=== PATIENT | male | born 1935 | race Caucasian/White ===

== ENCOUNTER → 2018-02-06 18:59 | Outpatient (CLI) | payer OTHER | END | disposition home or self-care (01) | LOC: D.SLEEP 11-28 20:00 | DX: G47.8 Other sleep disorders (principal) ==

== ENCOUNTER 2019-11-19 08:30 | Inpatient (IN) | payer OTHER ==
[~2019-11-19] VITALS: Ht 172.7 cm; Wt 67.5 kg
[~2019-11-19 08:30] MED LIST: ACETAMINOPHEN325 MG PO; ALBUTEROL SULF8.5 GM INH; ALOPHEN PILLS5 MG PO; AMBIEN10 MG; BAYER CHEWABLE81 MG PO; COREG6.25 MG; CRESTOR20 MG PO; GUAIFENESI100 MG/5 M PO; GYNE-LOTRIMIN-745 GM VG; KLOR-CON M2020 MEQ PO; LASIX20 MG PO; PLAVIX75 MG PO; RANITIDINE HCL150 M1 PO; REMERON15 MG PO; SPIRIVA RESPIMAT4 GM INH; STOOL SOFTENER240 MG; SYMBICORT 16010.2 GM INH; TESSALON PERLE100 MG PO; VITAMIN B-121000 MCG PO; ZYLOPRIM100 MG PO
[2019-11-19 09:35] LABS: BASOPHILS 0.3 % (0-2); EOSINOPHILS 4.4 % (0-7); HEMATOCRIT 41.3 % (42.0-54.0); HEMOGLOBIN 13.4 g/dL (13.5-17.5); IMMATURE GRANULOCYTES 0.3 % (0-5); LYMPHOCYTES 25.6 % (15-50); MCHC 32.4 g/dL (31.0-37.0); MCV 92.4 fL (80.0-100.0); MONOCYTES 9.5 % (2-11); NEUTROPHILS 59.9 % (40-80); PLATELET COUNT 191 10x3/uL (130-400); RBC 4.47 10x6/uL (4.20-6.10); RDW 15.7 % (11.5-14.5)
[2019-11-19 09:46] LABS: BILIRUBIN NEGATIVE (NEGATIVE); GLUCOSE NEGATIVE (NEGATIVE); KETONE NEGATIVE (NEGATIVE); NITRITE NEGATIVE (NEGATIVE); SPECIFIC GRAVITY 1.005 (1.005-1.020); UROBILINOGEN NORMAL (NORMAL)
[2019-11-19 09:53] LABS: APTT 30.2 SECONDS (22.8-39.4); INR 0.95 (0.85-1.17); PROTIME 12.7 SECONDS (11.6-15.0)
[2019-11-19] MEDS ORDERED: ICYHOT (10:03)
[2019-11-19] MEDS ORDERED: FOLATE0.4 MG PO (10:08)
[2019-11-19] MEDS ORDERED: NITROSTAT0.4 MG SL (10:09)
[2019-11-19 10:10] LABS: ALBUMIN 3.2 g/dL (3.4-5.0); BILIRUBIN - TOTAL 0.35 mg/dL (0.2-1.3); CALCIUM 9.4 mg/dL (8.5-10.1); CARBON DIOXIDE 31.7 mmol/L (21.0-32.0); CREATININE - SERUM 1.1 mg/dL (0.6-1.3); PHOSPHOROUS 3.2 mg/dL (2.5-4.9); POTASSIUM - SERUM 3.7 mmol/L (3.5-5.1); PROTEIN - SERUM 7.6 g/dL (6.4-8.2); T4 THYROXIN - FREE 0.91 ng/dL (0.76-1.46); THYROID STIMULATING HORMONE 3.84 uIU/mL (0.36-3.74); URIC ACID 4.5 mg/dL (2.6-7.2)
[2019-11-19] MEDS ORDERED: FLUTICASONE PRO16 GM NASAL (10:21)
[2019-11-19] MEDS ORDERED: PLAVIX75 MG (10:24)
[2019-11-20] VITALS (42 sets, daily range): BP systolic 81–150; BP diastolic 23–94; BMI 21.8; BMI 21.7
[2019-11-20 12:27] LABS: INR 1.58 (0.85-1.17); PROTIME 18.7 SECONDS (11.6-15.0)
--- NOTE | 2019-11-20 14:00 | NUR ---
PT ARRIVED TO UNIT AROUND 1348 VIA BED FROM OR. PLACED ON VENT AC R-14, TV 550, FIO2 100% PEEP 5. CONNECTED TO PROFESSIONAL FIGHTER. SWAN TO [facility] AT APPROX 53CM, SECURED. ARRIVED ON EPINEPHRINE, AMIODARONE, DOBUTAMINE AND PLASMOLYTE. SEE IV FLOWSHEET FOR RATES. HAS MIDSTERNAL INCISION WITH DRESSING C/D/I. SUBTERNAL CT X 2 TO 20CM SUCTION, NO AIR LEAK NOTED. LEFT CELE DRAIN IN PLACE. BALLOON PUMP TO LEFT GROIN 1:1. RLE HARVEST SITE WRAPPED WITH COBAN DRESSING. KIKI DRAIN IN PLACE WITH BLOODY DRAINAGE NOTED. UREÑA CATHETER IN PLACE WITH CLEAR YELLOW URINE NOTED. RIGHT RADIAL LINE SECURED IN PLACE WITH WRIST PROTECTOR. WRIST RESTRAINTS APPLIED ON ARRIVAL PER ORDER. SAFETY MEASURES IN PLACE. WILL CONTINUE TO MONITOR CLOSELY. TITRATE TONYA AND NITRO TO MAINTAIN BALLOON PUMP MEAN BETWEEN 60-[address] JOHN.
--- NOTE | 2019-11-20 14:54 | NUR ---
1 UNIT OF [facility]FP INFUSING AT THIS TIME.
[2019-11-20 14:56] LABS: BASOPHILS 0.1 % (0-2); EOSINOPHILS 0.7 % (0-7); IMMATURE GRANULOCYTES 0.4 % (0-5); LYMPHOCYTES 12.6 % (15-50); MCH 30.4 pg (26.0-34.0); MCHC 32.1 g/dL (31.0-37.0); MEAN PLATELET VOLUME 10.1 fL (7.4-10.4); MONOCYTES 9.1 % (2-11); NEUTROPHILS 77.1 % (40-80); RDW 15.6 % (11.5-14.5); WBC 12.3 10x3/uL (4.8-10.8)
--- NOTE | 2019-11-20 15:00 | NUR ---
PULLED ETTUBE BACK 2CM, FROM 23 CM TO 21 CM @ LIP. PER DR. JOHN.
[2019-11-20 15:01] LABS: HEMATOCRIT 31.2 % (42.0-54.0); MCV 94.8 fL (80.0-100.0); PLATELET COUNT 112 10x3/uL (130-400); RBC 3.29 10x6/uL (4.20-6.10)
[2019-11-20 15:03] LABS: INR 1.35 (0.85-1.17); PROTIME 16.5 SECONDS (11.6-15.0)
[2019-11-20 15:15] LABS: CALC OSMOLALITY 290 mosm/kg (275-300); CALCIUM 7.2 mg/dL (8.5-10.1); CARBON DIOXIDE 23.8 mmol/L (21.0-32.0); CHLORIDE - SERUM 109 mmol/L (98-107); CREATININE - SERUM 0.9 mg/dL (0.6-1.3); SODIUM 143 mmol/L (136-145); UREA NITROGEN 14 mg/dL (7-18); eGFR NON AFRICAN AMERICAN 85 mL/min (90-120)
[2019-11-20 15:18] LABS: GLUCOSE 197 mg/dL (74-106)
--- NOTE | 2019-11-20 15:36 | NUR ---
BLOOD GLUCOSE 221. INSULIN DRIP INITIATED PER PROTOCOL.
--- NOTE | 2019-11-20 19:04 | NUR ---
REPORT RECEIVED, SHIFT ASSESSMENT COMPLETED PER FLOW SHEET, SEE FOR DETAILS. ALL LINES LEVELED AND ZEROED WITH GOOD WAVEFORM. WILL CONTINUE TO MONITOR.
--- NOTE | 2019-11-20 21:24 | NUR ---
SPOKE TO DR. JOHN, UPDATE GIVEN ON PATIENT'S STATUS, NEW ORDERS RECEIVED TO INCREASE PLASMOLYTE TO 250 ML/HR FOR ONE HOUR, DECREASE DOBUTAMINE TO 8 MCG/KG/MIN, AND NEW ORDERS FOR DEMEROL-SEE ORDERS FOR DETAILS. DR. JOHN OK WITH IABP MEAN PRESSURE IN THE 80'S AND ORDERS TO TITRATE DRIPS ACCORDING TO HENRY BP.
--- NOTE | 2019-11-20 23:00 | NUR ---
REASSESSMENT COMPLETED PER FLOW SHEET, SEE FOR DETAILS. ORAL CARE PROVIDED.
[2019-11-21] VITALS (115 sets, daily range): BP systolic 88–148; BP diastolic 24–60; Ht 172.7 cm; Wt 67.5 kg
--- NOTE | 2019-11-21 00:15 | NUR ---
SVO2 DECREASE NOTED. CI CO DROP. GRAPH GAP ON MONITOR. SVO2 RECALIBER REQUIRED. VIGILANCE MONITOR RECALIBRATED.
--- NOTE | 2019-11-21 01:09 | NUR ---
TEMPERATURE 38.9, PRN TYLENOL ADMINISTERED PER ORDERS.
--- NOTE | 2019-11-21 03:00 | NUR ---
REASSESSMENT COMPLETED PER FLOW SHEET, SEE FOR DETAILS. NO ACUTE DISTRESS NOTED. WILL CONTINUE TO MONITOR.
[2019-11-21 04:14] LABS: MAGNESIUM - SERUM 1.8 mg/dL (1.8-2.4); POTASSIUM - SERUM 3.6 mmol/L (3.5-5.1)
--- NOTE | 2019-11-21 04:15 | NUR ---
PVC'S NOTED ON MONITOR, POTASSIUM 3.4 ON EKG, BLOOD DRAW RESULTS NOT BACK. POTASSIUM TREATED PER PROTOCOL.
--- NOTE | 2019-11-21 05:33 | NUR ---
SON AT BEDSIDE, UPDATE GIVEN, QUESTIONS ANSWERED. PATIENT SEDATED ON VENTILATOR, NO ACUTE DISTRESS NOTED. WILL CONTINUE TO MONITOR.
[2019-11-21 06:20] LABS: HEMATOCRIT 26.6 % (42.0-54.0); HEMOGLOBIN 8.6 g/dL (13.5-17.5); MCH 30.2 pg (26.0-34.0); MCHC 32.3 g/dL (31.0-37.0); MCV 93.3 fL (80.0-100.0); MEAN PLATELET VOLUME 10.3 fL (7.4-10.4); PLATELET COUNT 92 10x3/uL (130-400); RBC 2.85 10x6/uL (4.20-6.10); RDW 15.7 % (11.5-14.5); WBC 9.7 10x3/uL (4.8-10.8)
[2019-11-21 06:45] LABS: ALKALINE PHOSPHATASE 85 U/L (30-120); BILIRUBIN - TOTAL 0.46 mg/dL (0.2-1.3); CALCIUM 8.1 mg/dL (8.5-10.1); CARBON DIOXIDE 24.7 mmol/L (21.0-32.0); CHLORIDE - SERUM 110 mmol/L (98-107); CREATININE - SERUM 0.9 mg/dL (0.6-1.3); POTASSIUM - SERUM 3.8 mmol/L (3.5-5.1); SODIUM 141 mmol/L (136-145); UREA NITROGEN 11 mg/dL (7-18); eGFR NON AFRICAN AMERICAN 85 mL/min (90-120)
[2019-11-21 07:14] LABS: ALBUMIN 2.1 g/dL (3.4-5.0); ALT (SGPT) 43 U/L (10-68); CALC OSMOLALITY 281 mosm/kg (275-300); GLUCOSE 136 mg/dL (74-106); PROTEIN - SERUM 4.5 g/dL (6.4-8.2)
[2019-11-21 07:17] LABS: PLATELET ESTIMATE DECREASED
--- NOTE | 2019-11-21 08:21 | NUR ---
URINE OUTPUT FOR LAST HOUR 20CC. DR. JOHN NOTIFIED.
--- NOTE | 2019-11-21 08:35 | NUR ---
POTASSIUM 3.5. 10MEQ GIVEN PER PROTOCOL.
--- NOTE | 2019-11-21 09:15 | NUR ---
CPV AND ART LINE TUBING CHANGED AT THIS TIME.
--- NOTE | 2019-11-21 09:30 | NUR ---
DR. JOHN AT BEDSIDE. IABP CHANGED TO 1:2. ORDERED 250ML BOLUS AT THIS TIME TO BE GIVEN IN 1HR.
--- NOTE | 2019-11-21 11:00 | NUR ---
RE-ASSESSMENT COMPLETED. IABP 1:2. PT OPENS EYES TO VOICE. FOLLOWS SIMPLE COMMANDS. CHEST TUBES CONTINUE ON 20CM SUCTION. NO AIR LEAK NOTED. URINE OUT PUT HAS BEEN LOW. DR. JOHN AWARE. WILL CONTINUE TO MONITOR CLOSELY.
--- NOTE | 2019-11-21 12:03 | NUR ---
SUBSTERNAL DRESSING CHANGED PER ORDER. BIO PATCH APPLIED TO TPM WIRE. CHLOROPREP USED TO CLEAN CHEST TUBE SITES. 4X4'S APPLIED TO SITE, SECURED WITH TAGEDERM DRESSING.
--- NOTE | 2019-11-21 13:04 | NUR ---
URINE OUT PUT FOR THIS HR WAS 20CC. DR. JOHN NOTIFIED. NO NEW ORDERS RECEIVED AT THIS TIME.
--- NOTE | 2019-11-21 14:00 | NUR ---
RIJ CORTIS DRESSING CHANGED AT THIS TIME. PT TOLERATED WELL. WILL CONTINUE TO MONITOR.
--- NOTE | 2019-11-21 14:07 | OP ---
PATIENT NAME: LENY TORRES MEDICAL RECORD: [id number] :35 LOCATION:D.CVI [id number] ADMISSION DATE:11/20/19 SURGEON: DEVONTE JOHN MD DATE OF OPERATION: 11/20/2019 SURGEON: Devonte John MD PROCEDURES PERFORMED: 1. Beating heart, cardiopulmonary bypass assist coronary bypass graft times 2 (left internal mammary to LAD, reverse saphenous vein graft from aorta to second diagonal). 2. Endoscopic vein harvest. 3. Insertion of intraaortic balloon pump via left common femoral artery, percutaneous technique. 4. Ultrasound-guided left common femoral access. OPERATIVE INDICATION: Ischemic cardiomyopathy and coronary artery disease. POSTOPERATIVE DIAGNOSES: ischemic cardiomyopathy and coronary artery disease. ANESTHESIA: General endotracheal anesthesia. ESTIMATED BLOOD LOSS: Total cardiopulmonary bypass with Cell Saver retransfusion, one platelets. COMPLICATIONS: None. CONDITION: Critical. DISPOSITION: CV ICU. SPECIMENS: Mediastinal lymph node. OPERATIVE FINDINGS: 1. Transesophageal echocardiography revealed minimal mitral regurgitation and inferior dyskinesis, EF 25%. 2. Good quality greater saphenous vein endoscopically, right lower extremity. The patient later developed hematoma of the right groin and required open incision and evacuation. 3. Inability to percutaneously cannulate the right femoral artery. 4. Good quality left internal mammary artery. There were calcified left lower lobe lesions. Some adhesions to the left lower lobe that were taken down with electrocautery. 5. Soft anthracotic appearing mediastinal lymph node for permanent specimen. 6. Hostile ascending aorta calcified except for a small anterior portion just to the proximal arch, which was used for the cannulation. 7. No sizable posterior descending artery and posterolateral right coronary artery for bypass and the obtuse marginal as expected had severe disease and was not bypassable. 8. LAD 2.0 mm. 9. Second diagonal 1.5 mm proximal anastomosis with a heartstring in the softest area in the anterior ascending aorta, but had some soft plaque in this region. 10. Ultrasound-guided access to the left common femoral artery and placement of a sheathless left intraaortic balloon pump. OPERATIVE REPORT [id number] LENY TORRES INDICATION: Coronary artery disease and ischemic cardiomyopathy. PROCEDURE IN DETAIL: The patient was brought to the operating suite. General anesthesia was obtained. The patient was prepped and draped. Endoscopic vein harvest, right lower extremity was performed. Side branch divided with electrocautery. The vessel ligated proximally and distally removed. Side branches were tied and leakage sites were oversewn. Later, the leg was closed in 2 layers. Hematoma that developed in the upper thigh was evacuated with an incision and a drain was placed. Percutaneous attempt at placement of a right femoral arterial catheter were unsuccessful, ACT 180 at this time. Mediastinotomy incision was made, subcutaneous tissue divided with electrocautery. Sternum was divided with a saw. Left hemisternum was elevated. Left pleural cavity was entered. Left internal mammary was taken down as a pedicle graft. Palpable calcified nodules lower lobe were noted with some adhesions, this was taken down with electrocautery. Heparin was given. The internal mammary was clipped and made ready for anastomosis. The pericardium was opened. 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 The aorta was circumferentially calcified with eggshell type calcium at the base of the innominate artery, there was a ring of calcium but in the very proximal arch a soft area amenable for cannulation. The ACT was appropriately elevated and the ascending aorta was cannulated. Dual stage venous cannula was inserted. The patient was placed on cardiopulmonary bypass. The patient had hypotension prior to this on trying to expose the inferior wall to see the vessels as he had a large fatty heart. The patient was stable on cardiopulmonary bypass and sites for distal anastomoses were selected. Distal anastomosis was performed with inflow occlusion. Elevation of the heart using the off pump retraction system and stabilization of the distal target in a standard technique for the vein graft as well as the internal mammary proximal anastomosis with a heartstring device. Flow restored with the patient in Trendelenburg position. A single suture was placed distally in the internal mammary. The patient was weaned from cardiopulmonary bypass, and was stable. The patient was decannulated. Aortic annulus was oversewn with a pledgeted Prolene suture. Protamine was given. Thorough irrigation performed, hemostasis was ensured. The graft lay appropriately. Drain was placed in the mediastinum both pleural cavities. Ventricular pacing wire was placed. The pericardial fat was approximated over the great vessels. Left chest was evacuated and irrigated. The internal mammary harvest site was inspected for bleeding. Sternum was closed with wires. Layer of the fascia was closed. Subcutaneous tissue closed. Skin was closed. A hematoma of the right groin was noted. Incision was made to drain it. No obvious bleeding from the femoral vessels at the site. No further oozing after the vessel was packed off. The left femoral artery was visualized with ultrasound and cannulated with micropuncture technique and using a wire and sheathless technique, the intraaortic balloon pump was placed and sutured in place. The patient critical to ICU. TRANSINT:[id number] Voice Confirmation ID: [id number] DOCUMENT ID: [id number] OPERATIVE REPORT [id number] LENY TORRES, DEVONTE Bianchi MD at 1407 CC: KATYA DRAKE M.D. and KYREE ARAUJO [id number] DICTATION DATE: 11/20/19 1502 MAT SEWER: 11/21/19 0116 ADM IN [facility] [address] [place] [address]
--- NOTE | 2019-11-21 15:00 | NUR ---
UREÑA CATHETER TEMPERATURE 38.4. ROOM TEMPERATURE DECREASED, BLAKET REMOVED. TYLENOL SUPP GIVEN PER ORDERS. WILL CONTINUE TO MONITOR CLOSELY.
--- NOTE | 2019-11-21 15:00 | NUR ---
POTASSIUM OF 3.5 TREATED PER PROTOCOL.
--- NOTE | 2019-11-21 15:27 | NUR ---
DR. JOHN AT BEDSIDE. DECREASED DOBUTAMINE TO 6MCG/KG/MIN PER DR. JOHN. WANTS DOBUTAMINE DOWN TO 5MCG/KG/MIN BY END OF SHIFT.
--- NOTE | 2019-11-21 15:43 | NUR ---
CONTINUE AMIODARONE DRIP AT 0.5MG/MIN PER DR. JOHN.
[2019-11-21 16:26] LABS: MAGNESIUM - SERUM 1.8 mg/dL (1.8-2.4); POTASSIUM - SERUM 3.6 mmol/L (3.5-5.1)
--- NOTE | 2019-11-21 16:43 | NUR ---
MAG 1.8 AND K+ 3.6. DR. JOHN NOTIFIED. ORDERED 1GM MAGNESIUM. NO POTASSIUM TO BE GIVEN AT THIS TIME PER DR. JOHN.
--- NOTE | 2019-11-21 19:00 | NUR ---
BEDSIDE REPORT AND SHIFT ASSESSMENT COMPLETE, SEE FLOWSHEET. PT SEDATED, OPENS EYES. MIDSTERNAL INCISION DRESSING CDI. SUBSTERNAL INCISION, CT X 2, L CELE DRAIN, DRESSING CDI. L GROIN IABP SITE, DRESSING CDI. RLE HARVEST SITE, DRESSINGS INTACT. UREÑA WITH CLEAR, YELLOW UOP. ALL LINES ZERO'D, GOOD WAVEFORM. WILL CPOC.
--- NOTE | 2019-11-21 19:23 | NUR ---
GTT'S TITRATED PER NOV.
--- NOTE | 2019-11-21 23:55 | NUR ---
PVC'S NOTED ON MONITOR, STAT MAG AND POTASSIUM DRAWN AND SENT TO LAB.
[2019-11-22] VITALS (116 sets, daily range): BP systolic 96–160; BP diastolic 32–80
[2019-11-22 00:12] LABS: POTASSIUM - SERUM 3.8 mmol/L (3.5-5.1)
--- NOTE | 2019-11-22 00:30 | NUR ---
K+ 3.8, 5 MEQ POTASSIUM GIVEN PER PROTOCOL.
--- NOTE | 2019-11-22 03:00 | NUR ---
REASSESSMENT COMPLETE, SEE FLOWSHEET.
--- NOTE | 2019-11-22 04:00 | NUR ---
ORAL CARE COMPLETE.
--- NOTE | 2019-11-22 05:39 | NUR ---
REPORT RECEIVED. PT REMAINS ON VENT A/C, RATE 14, TV 550, FIO2 40%, PEEP 5. IABP TO LEFT GROIN REMAINS IN PLACE, DRESSING INTACT. SWAN MARTELL TO RIJ IN PLACE, DRESSING CDI. SEE IV FLOWSHEET FOR IV DRIPS. RIGHT RADIAL HENRY SECURED WITH WRIST PROTECTOR. BRANDY WRIST RESTRAINTS IN PLACE PER ORDER. CT X 2 TO 20CM SUCTION, NO AIR LEAK NOTED. CELE DRAIN IN PLACE. RLE HARVEST SITES DRESSING C/D/I, KIKI DRAIN IN PLACE. PEDAL PULSES AUDIBLE WITH DOPPLER. LEFT RADIAL PULSE 3+. TPM WIRE SECURED. UREÑA CATHETER INPLACE WITH CLEAR YELLOW URINE NOTED. SAFETY MEASURES IN PLACE. WILL CONTINUE TO MONITOR CLOSELY.
[2019-11-22 05:58] LABS: HEMATOCRIT 24.6 % (42.0-54.0); HEMOGLOBIN 7.8 g/dL (13.5-17.5); MCH 29.5 pg (26.0-34.0); MCHC 31.7 g/dL (31.0-37.0); MCV 93.2 fL (80.0-100.0); MEAN PLATELET VOLUME 11.3 fL (7.4-10.4); RBC 2.64 10x6/uL (4.20-6.10); WBC 9.4 10x3/uL (4.8-10.8)
[2019-11-22 06:03] LABS: PLATELET COUNT 67 10x3/uL (130-400)
--- NOTE | 2019-11-22 06:25 | NUR ---
H&H 7.8 AND 24.6, PLATELETS 67. DR. JOHN NOTIFIED.
[2019-11-22 06:47] LABS: PLATELET ESTIMATE DECREASED
--- NOTE | 2019-11-22 07:30 | NUR ---
IABP DC'D AT THIS TIME. EPINEPHRINE TURNED OFF PER DR. JOHN. PLASMOLYTE RATE CHANGED TO 20CC/HR PER DR. JOHN. WILL CONTINUE TO MONITOR.
[2019-11-22 08:09] LABS: ALBUMIN 1.8 g/dL (3.4-5.0); ALKALINE PHOSPHATASE 90 U/L (30-120); BILIRUBIN - TOTAL 0.36 mg/dL (0.2-1.3); CALC OSMOLALITY 274 mosm/kg (275-300); CALCIUM 7.2 mg/dL (8.5-10.1); CARBON DIOXIDE 26.8 mmol/L (21.0-32.0); CHLORIDE - SERUM 106 mmol/L (98-107); CREATININE - SERUM 0.9 mg/dL (0.6-1.3); GLUCOSE 128 mg/dL (74-106); POTASSIUM - SERUM 3.7 mmol/L (3.5-5.1); PROTEIN - SERUM 4.2 g/dL (6.4-8.2); SODIUM 137 mmol/L (136-145); UREA NITROGEN 9 mg/dL (7-18); eGFR NON AFRICAN AMERICAN 85 mL/min (90-120)
[2019-11-22 08:10] LABS: ALT (SGPT) 30 U/L (10-68)
--- NOTE | 2019-11-22 10:10 | NUR ---
PT EXTUBATED AT 0955. CURRENTLY ON VENTY MASK AT 50%. VERY WEAK COUGH. HOB AT 45 DEGREES. WILL CONTINUE TO MONITOR CLOSELY.
--- NOTE | 2019-11-22 10:46 | NUR ---
KHALIF MOURA DC'Arturo PER ORDER. PT TOLERATED WELL. WILL CONTINUE TO MONITOR.
--- NOTE | 2019-11-22 12:15 | NUR ---
DR. JOHN NOTIFIED OF ABG RESULTS. ORDERS RECEIVED. FAMILY AT BEDSIDE. WILL CONTINUE TO MONITOR.
--- NOTE | 2019-11-22 13:36 | NUR ---
UNIT OF BLOOD INITIATED AT THIS TIME. AMIODARONE BOLUS GIVEN. AMIODARONE DRIP INCREASED TO 1MG/MIN AT 1319. NEEDS TO BE CHANGED BACK TO 0.5MG/MIN IN 6HRS.
--- NOTE | 2019-11-22 15:00 | NUR ---
UNIT OF PRBC'S FINISHED INFUSING.
--- NOTE | 2019-11-22 15:01 | NUR ---
PLACED BACK ON VENTI MASK. RESPIRATORY NOTIFIED.
--- NOTE | 2019-11-22 15:39 | NUR ---
OFF BIPAP AT THIS TIME PER DR. JOHN. PLACED ON 12L VENTI MASK.
--- NOTE | 2019-11-22 16:48 | TEE ---
PATIENT:LENY TORRES MEDICAL RECORD: [id number] LOCATION:[place] [address] AGE OF PATIENT: 84 ADMISSION DATE: 11/20/19 SEX: M REFERRING PHYSICIAN: INTERPRETING PHYSICIAN: GONZALO DAVIDSON MD TRANSESOPHAGEAL ECHOCARDIOGRAM Date: 11/20/19 RONNY CHARGE Y INDICATIONS: CABG PREMEDICATIONS: PATIENT'S RESPONSE PROCEDURE DOPPLER MEASUREMENTS: LVIT LA PA RA LVOT RVOT Asc. Ao AV Gradient Peak AV Mean AV Area MV Gradient Peak MV Mean MV Area INTERPRETATION: LVd: 4.6 CM LVs: 3.3 CM LA: 3.3 CM Doppler: 2-D: COLOR FLOW DOPPLER NORMAL SALINE STUDY: MISCELLANOUS: DIAGNOSIS: PLAN: Nuclear Test Technician:Iwona Mi Assistant Credit Manager: Luca GUERRERO COMMENTS: DATE OF SERVICE: 11/21/2019 PROCEDURE: Transesophageal echo evaluation of valvular structures during bypass surgery. FINDINGS: Preoperatively, the ejection fraction was approximately 25% with mild mitral regurgitation. Postoperatively, the ejection fraction definitely increased, it was approximately 35%. Mitral regurgitation was trace. TRANSESOPHAGEAL ECHOCARDIOGRAM REPORT [id number] LENY TORRES TRANSINT:[id number] Voice Confirmation ID: [id number] DOCUMENT ID: [id number] at 1648 CC: [id number] DICTATION DATE: 11/21/19 1032 USED CAR MAKE READY MECHANIC: 11/22/19 0644 ADM IN [facility] [address] [place] [id number]
--- NOTE | 2019-11-22 17:26 | NUR ---
RESPIRATORY AT BEDSIDE. INCREASED VENTI MASK TO 55%. 02 SAT 94%. WILL CONTINUE TO MONITOR.
--- NOTE | 2019-11-22 17:58 | NUR ---
DANGLED PT ON SIDE OF BED. 250ML OF SEROSANG DRAINAGE NOTED FROM CHEST TUBE. PT TOLERATED WELL. PLACED BACK ON BIPAP AT THIS TIME. PULLED UP IN BED AND REPOSITIONED FOR COMFORT. WILL CONTINUE TO MONITOR.
--- NOTE | 2019-11-22 19:00 | NUR ---
BEDSIDE REPORT AND SHIFT ASSESSMENT COMPLETE, SEE FLOWSHEET. PT ALERT AND ORIENTED, SITTING UP IN BED. O2 SAT 99 ON 55% BIPAP. MIDSTERNAL INCISION DRESSING CDI. SUBSTERNAL INCISION, CT AND CELE DRAIN, DRESSING CDI. RLE HARVEST SITE KIKI DRAIN WNL, DRESSING INTACT. R IJ CVL PATENT, SEE IV FLOWSHEET. R RADIAL A-LINE ZERO'D, GOOD WAVEFORM. PT DENIES ANY NEEDS AT THIS TIME. CALL LIGHT IN REACH, BED IN LOW POSITION. WILL MONITOR.
--- NOTE | 2019-11-22 19:19 | NUR ---
AMIODORONE GTT RATE CHANGE TO 0.5 MG/MIN PER ORDERS.
--- NOTE | 2019-11-22 20:00 | NUR ---
FAMILY AT BEDSIDE, UPDATE GIVEN.
--- NOTE | 2019-11-22 21:00 | NUR ---
HANDY KIKI DRAIN DRESSING CHANGED.
--- NOTE | 2019-11-22 23:00 | NUR ---
REASSESSMENT COMPLETE, SEE FLOWSHEET.
[2019-11-23] VITALS (51 sets, daily range): BP systolic 94–146; BP diastolic 36–61
--- NOTE | 2019-11-23 01:00 | NUR ---
PT RESTING IN BED, VSS. NO SIGNS OF ACUTE DISTRESS NOTED. L GROIN SITE SOFT. WILL MONITOR.
--- NOTE | 2019-11-23 02:20 | NUR ---
REPOSITIONED BIPAP MASK. STRONG PRODUCTIVE COUGH, SUCTIONED WHITE SPUTUM.
--- NOTE | 2019-11-23 03:00 | NUR ---
REASSESSMENT COMPLETE, SEE FLOWSHEET.
--- NOTE | 2019-11-23 05:30 | NUR ---
CHG BATH, PARTIAL LINEN CHANGE, UREÑA CARE COMPLETE.
--- NOTE | 2019-11-23 06:00 | NUR ---
SON AT BEDSIDE, UPDATE GIVEN. 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
[2019-11-23 06:17] LABS: MCH 30.4 pg (26.0-34.0); MCHC 32.8 g/dL (31.0-37.0); MCV 92.6 fL (80.0-100.0); MEAN PLATELET VOLUME 10.7 fL (7.4-10.4); RDW 16.3 % (11.5-14.5); WBC 9.7 10x3/uL (4.8-10.8)
[2019-11-23 06:18] LABS: HEMATOCRIT 30.2 % (42.0-54.0); HEMOGLOBIN 9.9 g/dL (13.5-17.5); RBC 3.26 10x6/uL (4.20-6.10)
[2019-11-23 06:25] LABS: ALKALINE PHOSPHATASE 94 U/L (30-120); ALT (SGPT) 29 U/L (10-68); BILIRUBIN - TOTAL 0.84 mg/dL (0.2-1.3); CALCIUM 7.9 mg/dL (8.5-10.1); CARBON DIOXIDE 25.2 mmol/L (21.0-32.0); CHLORIDE - SERUM 105 mmol/L (98-107); CREATININE - SERUM 0.9 mg/dL (0.6-1.3); GLUCOSE 108 mg/dL (74-106); POTASSIUM - SERUM 3.7 mmol/L (3.5-5.1); PROTEIN - SERUM 4.9 g/dL (6.4-8.2); SODIUM 139 mmol/L (136-145); eGFR NON AFRICAN AMERICAN 85 mL/min (90-120)
[2019-11-23 06:28] LABS: CALC OSMOLALITY 278 mosm/kg (275-300); UREA NITROGEN 12 mg/dL (7-18)
--- NOTE | 2019-11-23 10:00 | NUR ---
DR JOHN AT BEDSIDE. CHEST TUBES DC'D AND LUCRECIA CHANGES. PT TOLERATED WELL.
--- NOTE | 2019-11-23 10:08 | NUR ---
Nutrition Follow-up: POD 3 CABG. Extubated yesterday. On bipap this AM. Has been NPO since day of surgery. Wt: 173.8# (11/23); 169.4# (11/21) Labs noted: Glu 108, Ca 7.9, Alb 2.0 Meds noted: Protonix -Rec ADAT when medically feasible; NPO since surgery. If unable to advance diet, MD may consider nutrition support. -Monitor wt. -RD following.
--- NOTE | 2019-11-23 10:10 | NUR ---
HENRY HOLLIDAY PER ORDER. MANUAL PRESSURE HELD AND THEN DRSG APPLIED.
--- NOTE | 2019-11-23 10:32 | OP ---
PATIENT NAME: LENY TORRES MEDICAL RECORD: [id number] :35 LOCATION:[facility] [facility]04 ADMISSION DATE:11/20/19 SURGEON: DEVONTE JOHN MD DATE OF OPERATION: 11/22/2019 DIAGNOSIS: Ischemic cardiomyopathy. SURGEON: Devonte John MD PROCEDURE: Percutaneous removal of intraaortic balloon pump left common femoral artery. DESCRIPTION OF PROCEDURE: With the patient at the bedside in the cardiovascular intensive care intubated and with heart rate, blood pressure, and pulse oximetry monitored, the sutures holding the balloon pump were removed. The balloon pump was removed intact. Direct pressure was held for 30 minutes. Good Doppler left posterior tibial and no apparent complications. TRANSINT:[id number] Voice Confirmation ID: [id number] DOCUMENT ID: [id number] DEVONTE JOHN MD at 1032 CC: [id number] DICTATION DATE: 11/22/19 0846 PIG FARM MANAGER: 11/22/19 1103 ADM IN [place] [id number] [place] [id number]
--- NOTE | 2019-11-23 13:45 | NUR ---
OOB TO CHAIR WITH ASSISTANCE. HIGH FLOW NC 5L. MAINTAING O2 SAT WELL. ENCOURAGED TO COUGH FREQUEENTLY AND CLEAR CONGESTION OUT OF LUNGS. VERY COMPLIANT.
--- NOTE | 2019-11-23 16:00 | NUR ---
REMAINS IN CHAIR. CONTINUES TO COUGH FREQUENTLY. PRODUCTIVE COUGH. DENIES PAIN. UOP HAS GREATLY INCREASED SINCE IV LASIX GIVEN.
--- NOTE | 2019-11-23 19:00 | NUR ---
REPORT RECEIVED. RECEIVED PATIENT UP IN BEDSIDE CHAIR. AWAKE ALERT AND ORIENTED X 4. MONITORS CONNECTED TO PATIENT WITH ALARMS SET. VSS. ASSESSMENT COMPLETED PER FLOW SHEET WITH NO ACUTE DISTRESS OBSERVED. CALL LIGHT WITH IN EASY REACH AND ABLE TO UTILIZE TO MAKE NEEDS KNOWN.
--- NOTE | 2019-11-23 19:53 | NUR ---
MAGDALENA SPEECH THERAPIST IN ROOM FOR BEDSIDE SWALLOW FABIAN
--- NOTE | 2019-11-23 20:06 | MORECARE ---
CASE MANAGEMENT DISCHARGE SUMMARY PATIENT: LENY TORRES UNIT: [id number] ADM DATE: 11/20/19 AGE: 84 : 35 SEX: M [facility] AUTHOR: GINI TORRE PHYSICIAN: REFERRING PHYSICIAN: TATYANA JOHN MD DATE OF SERVICE: 11/23/19 Discharge Plan Patient Name: LENY TORRES Facility: [facility]:[place] : 1935 Planned Disposition: Home with Home Health Anticipated Discharge Date: Discharge Date: Expected LOS: Initial Reviewer: [email or web address] Initial Review Date: 11/23/2019 Generated: 11/23/19 9:05 pm Coverage Notice Reviewer: [email or web address] Makayla Meek Notice Issued Date-Time: 11/23/2019 11:35 Notice Type: Patient Choice Letter Notice Delivered To: Family Member Relationship to Patient: Spouse Carrot Buncher Name: Jada Torres Delivery Method: HAND - Hand Delivered Carlyn Days: Prior Verbal Notification: Recipient Understood Notice: Yes Recipient Signature: Yes Med Rec Note Co-signed by Attending: Coverage Notice Comment: Patient Name: LENY TORRES Page [phone] at 2006 All edits/amendments must be made on the electronic document DICTATION DATE: 11/23/192005 ACCOUNTING SPECIALIST: JYOTHI 11/23/192005 RPT#: [id number] DC DATE: STATUS: ADM IN [place] [address] [place] [address] END OF REPORT
--- NOTE | 2019-11-23 20:13 | MORECARE ---
CASE MANAGEMENT DISCHARGE SUMMARY PATIENT: LENY TORRES UNIT: [id number] ADM DATE: 11/20/19 AGE: 84 : 35 SEX: M ROOM/BED: D[facility] AUTHOR: YELITZA,DOC PHYSICIAN: REFERRING PHYSICIAN: TATYANA JOHN MD DATE OF SERVICE: 11/23/19 Discharge Plan Patient Name: LENY TORRES Facility: [facility]:[place] : 1935 Planned Disposition: Home with Home Health Anticipated Discharge Date: Discharge Date: Expected LOS: Initial Reviewer: [email or web address] Initial Review Date: 11/23/2019 Generated: 11/23/19 9:13 pm Comments DCP- Discharge Planning Updated by [email or web address]: Silvia Meek on 11/23/19 7:[address] Patient Name: LENY TORRES Admission Status: Urgent Accout number: [id number] Admission Date: 11-20-2019 : 1935 Admission Diagnosis: Attending: TATYANA JOHN Current LOS: 3 Anticipated DC Date: Planned Disposition: Home with Home Health Primary Insurance: [place] [employer] Discharge Planning Comments: CM met with patient to complete initial dc planning assessment. CM educated patient on the CM role and verbal consent given by patient to complete assessment. CM verified patient's address, phone number, and emergency contact phone numbers. Patient lives at home with his spouse. At discharge patient plans to return home and feels that this is a safe discharge. CM discussed availability of home health, rehab services, and medical equipment. [facility] and [facility] to [facility] care upon discharge. HONG signed. Patient may require walk test for 02 if needed upon discharge. CM will continue to follow and will assist as needed with dc plans/needs. Whitesmith: Silvia Meek DCPIA - Discharge Planning Initial Assessment Updated by [email or web address]: Silvia Meek on 11/23/19 8:05 pm * Is the patient Alert and Oriented? Yes * How many steps to enter\exit or inside your home? ramp * [facility] * Preadmission Environment Home with Family * ADLs Independent * Other Equipment WALKER, W/C, BSC, GRAB BARS, HAND HELD SHOWER * List name and contact numbers for known caregivers / representatives who currently or will assist patient after discharge: DC TORRES - [facility], [facility] - [phone] * Verbal permission to speak to the caregivers and representatives has been obtained from the patient. Yes * Community resources currently utilized Home Health * Please name any agencies selected above. [facility] * Additional services required to return to the preadmission environment? No * Can the patient safely return to the preadmission environment? Yes * Has this patient been hospitalized within the prior 30 days at any hospital? No Coverage Notice Reviewer: [id number] - Silvia Meek Notice Issued Date-Time: 11/23/2019 11:35 Notice Type: Patient Choice Letter Notice Delivered To: Family Member Relationship to Patient: Spouse Box Car Washer Name: Jada Torres Delivery Method: HAND - Hand Delivered Carlyn Days: Prior Verbal Notification: Recipient Understood Notice: Yes Recipient Signature: Yes Med Rec Note Co-signed by Attending: Coverage Notice Comment: Last DP export: 11/23/19 7:06 p Patient Name: LENY TORRES Page [phone] at 2013 All edits/amendments must be made on the electronic document DICTATION DATE: 11/23/192012 SUPERVISOR CONTACT AND SERVICE CLERKS: JYOTHI 11/23/19 2013 RPT#: [id number] DC DATE: STATUS: ADM IN [facility] [address] [place] [address] END OF REPORT
--- NOTE | 2019-11-23 21:00 | NUR ---
AWAKE AND ALERT. VSS. DENIES NEEDS. PO MEDS TAKEN WITHOUT DIFF. CALL LIGHT IN REACH
--- NOTE | 2019-11-23 23:00 | NUR ---
REASSESSMENT COMPLETED PER FLOW SHEET WITH NO ACUTE DISTRESS OBSERVED. VSS. CALL LIGHT IN REACH
[2019-11-24] VITALS (34 sets, daily range): BP systolic 91–145; BP diastolic 42–65
--- NOTE | 2019-11-24 01:00 | NUR ---
RESTING WITH EYES CLOSED, EASILY ROUSED AND ALERT. VSS. CALL LIGHT IN REACH
--- NOTE | 2019-11-24 03:00 | NUR ---
RESTING WITH EYES CLOSED, EASILY ROUSED AND ALERT. VSS. REASSESSMENT COMPLETED PER FLOW SHEET WITH NO ACUTE DISTRESS OBSERVED. CALL LIGHT IN REACH
--- NOTE | 2019-11-24 05:00 | NUR ---
RESTING WITH EYES CLOSED, EASILY ROUSED AND ALERT. VSS. CALL LIGHT IN REACH
[2019-11-24 05:56] LABS: HEMATOCRIT 30.4 % (42.0-54.0); HEMOGLOBIN 9.7 g/dL (13.5-17.5); MCHC 31.9 g/dL (31.0-37.0); MCV 94.1 fL (80.0-100.0); MEAN PLATELET VOLUME 10.3 fL (7.4-10.4); RBC 3.23 10x6/uL (4.20-6.10)
[2019-11-24 06:22] LABS: ALBUMIN 1.8 g/dL (3.4-5.0); ALKALINE PHOSPHATASE 91 U/L (30-120); ALT (SGPT) 25 U/L (10-68); BILIRUBIN - TOTAL 1.04 mg/dL (0.2-1.3); CALC OSMOLALITY 280 mosm/kg (275-300); CARBON DIOXIDE 28.1 mmol/L (21.0-32.0); CHLORIDE - SERUM 103 mmol/L (98-107); GLUCOSE 146 mg/dL (74-106); POTASSIUM - SERUM 3.7 mmol/L (3.5-5.1); PROTEIN - SERUM 5.2 g/dL (6.4-8.2); SODIUM 138 mmol/L (136-145); UREA NITROGEN 17 mg/dL (7-18); eGFR NON AFRICAN AMERICAN 76 mL/min (90-120)
--- NOTE | 2019-11-24 10:24 | NUR ---
0700-RECIEVED PER FLOW SHEET-UP IN LNDHD-[id number]-[id number] TO UPRIGHT FOR MEAL TRAY-NOTED KNIK AND VISION DIFFICULTY-REQUIRES MINIMAL ASSIST WITH ADLS 0930-PHYSICAL THERAPY AT BEDSIDE 1010-DR FATIMA / DORA/MIKE AT [facility] - PRESENT -REVIEWED PT CURRENT STATUS AND COURSE OF ACTION-DOBUTREX DECREASED TO 4MCG DIRECTED-UPDATED WITH PHYSICAL THERAPY RESPONSE
--- NOTE | 2019-11-24 17:18 | NUR ---
1600 DR JOHN NOTIFIED OF RHYTHM CHANGE TO AFIB RATE [id number] GIVEN TO RETURN CALL WHEN HEART GREATER THAN [id number] PT FOR DINNER TRAY-SLIGHT DISORIENTION NOTED-TRAY SET UP FOR PT IN EASY [id number] RETURN TO SR WITH PAC
--- NOTE | 2019-11-24 18:48 | NUR ---
ORAL CARE DONE WITH PERIDEX
--- NOTE | 2019-11-24 19:00 | NUR ---
REPORT RECEIVED. RECEIVED PATIENT IN BED. AWAKE ALERT AND ORIENTED X 4. ASSESSMENT COMPLETED PER FLOW SHEET WITH NO ACUTE DISTRESS OBSERVED. MONITORS CONNECTED TO PATIENT WITH ALARMS SET. VSS. CALL LIGHT IN REACH AND ABLE TO UTILIZE TO MAKE NEEDS KNOWN.
--- NOTE | 2019-11-24 21:00 | NUR ---
RESTING WITH EYES CLOSED, EASIL ROUSED AND ALERT. VSS. CALL LIGHT IN REACH
--- NOTE | 2019-11-24 23:00 | NUR ---
REASSESSMENT COMPLETED PER FLOW SHEET WITH NO ACUTE DISTRESS OBSERVED. VSS. CALL LIGHT IN REACH
[2019-11-25] VITALS (38 sets, daily range): BP systolic 116–162; BP diastolic 41–68
--- NOTE | 2019-11-25 01:00 | NUR ---
RESTING WITH EYES CLOSED, EASILY ROUSED AND ALERT. VSS. CALL LIGHT IN REACH
--- NOTE | 2019-11-25 03:00 | NUR ---
RESTING WITH EYES CLOSED, EASILY ROUSED AND ALERT. VSS. REASSESSMENT COMPLETED PER FLOW SHEET WITH NO ACUTE DISTRESS OBSERVED. CALL LIGHT IN REACH.
[2019-11-25 06:06] LABS: HEMATOCRIT 31.6 % (42.0-54.0); HEMOGLOBIN 10.1 g/dL (13.5-17.5); MCH 30.1 pg (26.0-34.0); MEAN PLATELET VOLUME 10.2 fL (7.4-10.4); RBC 3.36 10x6/uL (4.20-6.10); RDW 15.9 % (11.5-14.5); WBC 8.4 10x3/uL (4.8-10.8)
[2019-11-25 06:30] LABS: ALKALINE PHOSPHATASE 90 U/L (30-120); ALT (SGPT) 21 U/L (10-68); BILIRUBIN - TOTAL 1.05 mg/dL (0.2-1.3); CALC OSMOLALITY 277 mosm/kg (275-300); CALCIUM 8.1 mg/dL (8.5-10.1); CARBON DIOXIDE 27.8 mmol/L (21.0-32.0); CHLORIDE - SERUM 104 mmol/L (98-107); PROTEIN - SERUM 5.3 g/dL (6.4-8.2); SODIUM 138 mmol/L (136-145); UREA NITROGEN 19 mg/dL (7-18); eGFR NON AFRICAN AMERICAN 76 mL/min (90-120)
[2019-11-25 06:31] LABS: GLUCOSE 97 mg/dL (74-106)
--- NOTE | 2019-11-25 10:18 | NUR ---
0950-AMBULATED IN WITH PHYSICAL THERAPY TOLERATED WELL-ASSISTED PT TO BED 40 ELEVATION ON HEAD-SON AT BEDSIDE
--- NOTE | 2019-11-25 18:37 | NUR ---
ORAL CARE DONE WITH PERIDEX
--- NOTE | 2019-11-25 19:00 | NUR ---
REPORT RECEIVED. RECEIVED PAITIENT IN BED. AWAKE ALERT AND ORIENTED X 4. SPEECH CLEAR. ASSESSMENT COMPLETED PER FLOW SHEET WITH NO ACUTE DISTRESS OBSERVED. MONITORS CONNECTED TO PATIENT WITH ALARMS SET. VSS. CALL LIGHT IN REACH AND ABLE TO UTILIZE TO MAKE NEEDS KNOWN .
--- NOTE | 2019-11-25 21:00 | NUR ---
AWAKE AND ALERT. VSS. DENIES NEEDS AT THIS TIME. CALL LIGHT IN REACH
--- NOTE | 2019-11-25 23:00 | NUR ---
REASSESSMENT COMPLETED PER FLOW SHEET WITH NO ACUTE DISTRESS OBSERVED. VSS. CALL LIGHT IN REACH
[2019-11-26] VITALS (25 sets, daily range): BP systolic 102–154; BP diastolic 38–79
--- NOTE | 2019-11-26 01:00 | NUR ---
RESTING WITH EYES CLOSED, EASILY ROUSED AND ALERT. VSS. CALL LIGHT IN REACH
--- NOTE | 2019-11-26 03:00 | NUR ---
RESTING WITH EYES CLOSED, EASILY ROUSED AND ALERT. VSS. CALL LIGHT IN REACH
--- NOTE | 2019-11-26 05:00 | NUR ---
RESTING WITH EYES CLOSED, EASILY ROUSED AND ALERT. VSS. CALL LIGHT IN REACH
--- NOTE | 2019-11-26 08:48 | NUR ---
DR JOHN IN ROOM WITH PT. UPDATED GIVEN. NEW ORDERS RECEIVED TO D/Ryan UREÑA AND PREPARE FOR REHAB CONSULT TOMORROW.
--- NOTE | 2019-11-26 09:00 | NUR ---
D/C UREÑA. PT TOLERATED WELL. EDUCATED PT ON VOIDING IN URINAL
--- NOTE | 2019-11-26 10:05 | NUR ---
PT TAKEN TO XRAY BY RADIOLOGY. WILL CONTINUE TO MONITOR
--- NOTE | 2019-11-26 13:36 | NUR ---
Nutrition Follow-up: Pt reports eating <50% of breakfast this AM. Puree with thin liquids per ST. Diet: Regular, Puree, Thin Liquids PO intake: 25-75% Wt: 147.8# (11/25); 173.8# (11/23); 142.6# (11/20) Last BM: 11/24 Labs noted: Ca 8.1, Alb 2.0 Meds noted: KCl, Protonix, Senokot -Continue current diet as tolerated with consistencies per ST. -Monitor wt. -RD following.
--- NOTE | 2019-11-26 15:24 | NUR ---
REMOVED CENTRAL LINE. PT TOLERATED WELL. REASSESSMENT COMPLETED. FAMILY AT BEDSIDE. WILL CONTINUE TO MONITOR
--- NOTE | 2019-11-26 17:02 | NUR ---
PT RESTING IN BED. REFUSED MEAL TRAY. ATE APPLESAUCE AND VANILLA PUDDING INSTEAD. WILL CONTINUE TO MONITOR
--- NOTE | 2019-11-26 19:00 | NUR ---
BEDSIDE REPORT AND SHIFT ASSESSMENT COMPLETE, SEE FLOWSHEET. VSS, NO SIGNS OF ACUTE DISTRESS NOTED. PT KIANA, ALERT AND ORIENTED. DENIES ANY NEEDS AT THIS TIME. WILL MONITOR.
--- NOTE | 2019-11-26 20:06 | NUR ---
ORAL CARE DONE WITH PERIDEX
--- NOTE | 2019-11-26 21:00 | NUR ---
MEDS GIVEN PER MAR AND TOLERATED BY PT.
--- NOTE | 2019-11-26 21:00 | NUR ---
PT AMBULATED FROM BED TO BATHROOM AND BACK TO BED WITH ASSISTANCE FROM . 1 LG BM. MEDS GIVEN PER MAR AND TOLERATED.
--- NOTE | 2019-11-26 23:00 | NUR ---
REASSESSMENT COMPLETE, SEE FLOWSHEET.
[2019-11-27] VITALS (24 sets, daily range): BP systolic 94–136; BP diastolic 37–57
--- NOTE | 2019-11-27 01:00 | NUR ---
PT RESTING QUIETLY IN BED. DENIES NEEDS AT THIS TIME.
--- NOTE | 2019-11-27 03:00 | NUR ---
REASSESSMENT COMPLETE, SEE FLOWSHEET.
--- NOTE | 2019-11-27 05:05 | NUR ---
ORAL CARE DONE WITH PERIDEX
--- NOTE | 2019-11-27 05:45 | NUR ---
SON AT BEDSIDE, UPDATE GIVEN.
[2019-11-27 06:32] LABS: BASOPHILS 0.2 % (0-2); EOSINOPHILS 5.8 % (0-7); HEMATOCRIT 32.8 % (42.0-54.0); HEMOGLOBIN 10.3 g/dL (13.5-17.5); IMMATURE GRANULOCYTES 0.3 % (0-5); LYMPHOCYTES 10.9 % (15-50); MCH 29.5 pg (26.0-34.0); MCHC 31.4 g/dL (31.0-37.0); MEAN PLATELET VOLUME 10.5 fL (7.4-10.4); MONOCYTES 9.4 % (2-11); NEUTROPHILS 73.4 % (40-80); RBC 3.49 10x6/uL (4.20-6.10); RDW 15.6 % (11.5-14.5); WBC 9.2 10x3/uL (4.8-10.8)
[2019-11-27 06:34] LABS: PLATELET COUNT 225 10x3/uL (130-400)
[2019-11-27 07:08] LABS: CALC OSMOLALITY 274 mosm/kg (275-300); CALCIUM 8.3 mg/dL (8.5-10.1); CARBON DIOXIDE 26.1 mmol/L (21.0-32.0); CHLORIDE - SERUM 102 mmol/L (98-107); GLUCOSE 91 mg/dL (74-106); PHOSPHOROUS 2.4 mg/dL (2.5-4.9); SODIUM 136 mmol/L (136-145); UREA NITROGEN 20 mg/dL (7-18); eGFR NON AFRICAN AMERICAN 76 mL/min (90-120)
--- NOTE | 2019-11-27 09:16 | NUR ---
0700 PT RECIEVED UP IN CHAIR ALERT AN DORIENTED VSS DENIES PAIN MIDSTERNAL AND SUBSTERNAL DRESSINGS CDI SEE SHIFT ASSESSMENT FOR DETAILS 0900 PT ATE 25% BREAKFAST, AWAITING INSURANCE FOR REHAB EVAL PER CASEMANAGEMENT, DR JOHN INUNIT AND NOTIFIED
--- NOTE | 2019-11-27 13:57 | NUR ---
TPM WIRE AN DBLAKE DRAIN REMOVED BY DR JOHN
--- NOTE | 2019-11-27 14:06 | MORECARE ---
CASE MANAGEMENT DISCHARGE SUMMARY PATIENT: LENY TORRES UNIT: [id number] ADM DATE: 11/20/19 AGE: 84 : 35 SEX: M ROOM/BED: D[facility] AUTHOR: YELITZA,DOC PHYSICIAN: REFERRING PHYSICIAN: TATYANA JOHN MD DATE OF SERVICE: 11/27/19 Discharge Plan Patient Name: LENY TORRES Facility: [facility]:[place] : 1935 Planned Disposition: Home with Home Health Anticipated Discharge Date: Discharge Date: Expected LOS: Initial Reviewer: [email or web address] Initial Review Date: 11/23/2019 Generated: 11/27/19 3:05 pm DCP- Discharge Planning Updated by [email or web address]: Silvia Meek on 11/23/19 7:[address] Patient Name: LENY TORRES Admission Status: Urgent Accout number: [id number] Admission Date: 11-20-2019 : 1935 Admission Diagnosis: Attending: TATYANA JOHN Current LOS: 3 Anticipated DC Date: Planned Disposition: Home with Home Health [place]: [place] [employer] Discharge Planning Comments: CM met with patient to complete initial dc planning assessment. CM educated patient on the CM role and verbal consent given by patient to complete assessment. CM verified patient's address, phone number, and emergency contact phone numbers. Patient lives at home with his spouse. At discharge patient plans to return home and feels that this is a safe discharge. CM discussed availability of home health, rehab services, and medical equipment. [facility] and plans to resume care upon discharge. HONG signed. Patient may require walk test for 02 if needed upon discharge. CM will continue to follow and will assist as needed with dc plans/needs. Preparation Center Coordinator: Silvia Meek DCPIA - Discharge Planning Initial Assessment Updated by [id number]: Silvia Meek on 11/23/19 8:05 pm * Is the patient Alert and Oriented? Yes * How many steps to enter\exit or inside your home? ramp * PCP [facility] * [facility] * Preadmission Environment Home with Family * ADLs Independent * Other Equipment WALKER, W/C, BSC, GRAB BARS, HAND HELD SHOWER * List name and contact numbers for known caregivers / representatives who currently or will assist patient after discharge: DC TORRES - [facility] - [phone] * Verbal permission to speak to the caregivers and representatives has been obtained from the patient. Yes * Community resources currently utilized Home Health * Please name any agencies selected above. [facility] * Additional services required to return to the preadmission environment? No * Can the patient safely return to the preadmission environment? Yes * Has this patient been hospitalized within the prior 30 days at any hospital? No External Providers External Provider: OTHER-OTHER Next Contact Date: Service Request Date: Service Type: Resolution: Reviewer: Comments: Coverage Notice Reviewer: [email or web address] - Silvia Meek Notice Issued Date-Time: 11/23/2019 11:35 Notice Type: Patient Choice Letter Notice Delivered To: Family Member Relationship to Patient: Spouse Manager Economic Name: Jada Torres Delivery Method: HAND - Hand Delivered Carlyn Days: Prior Verbal Notification: Recipient Understood Notice: Yes Recipient Signature: Yes Med Rec Note Co-signed by Attending: Coverage Notice Comment: Last DP export: 11/23/19 7:13 p Patient Name: LENY TORRES Page [phone] at 1406 All edits/amendments must be made on the electronic document DICTATION DATE: 11/27/19 1405 MANAGER PRODUCT MANAGEMENT: JYOTHI 11/27/19 1405 RPT#: [id number] DC DATE: STATUS: ADM IN [facility] [address] [place] [address] END OF REPORT
--- NOTE | 2019-11-27 16:36 | NUR ---
Rehab note- Acute Inpatient Rehab prescreen order received. THe patient has VA Benefits and have spoken with KEVIN Vega that has been speaking with Silvia with the VA benefits that is looking for possible inpatient acute rehab stay authorization. Will continue to follow at this time. Thank you for this referral! Yolanda Arevalo RN Clinical Liaison, [facility] Rehab
--- NOTE | 2019-11-27 16:53 | NUR ---
AFTER INCREASING DIET, PT BEGAN HAVING TROUBLE WITH SWALLOWING HIS DINNER AND COUGHING, STATED "THE FOOD IS STUCK". WAS ABLE TO CLEAR AIRWAY INDEPENDENTLY AND DID NOT HAVE ANY DISTRESS, SPEECH THERAPY NOTIFIED
--- NOTE | 2019-11-27 17:04 | NUR ---
SPEECH IN UNIT AND ORDERED TO REVERT TO PUREED DIET, PT IN AGREEMENT
--- NOTE | 2019-11-27 19:00 | NUR ---
BEDSIDE REPORT AND SHIFT ASSESSMENT COMPLETE, SEE FLOWSHEET. VSS, NO SIGNS OF ACUTE DISTRESS NOTED. PT ALERT AND ORIENTED, NAPPING IN BEDSIDE CHAIR. PT INSTRUCTED TO COUGH AND USE IS. CALL LIGHT IN REACH. WILL MONITOR.
--- NOTE | 2019-11-27 19:38 | MORECARE ---
CASE MANAGEMENT DISCHARGE SUMMARY PATIENT: LENY TORRES UNIT: [id number] ADM DATE: 11/20/19 AGE: 84 : 35 SEX: M ROOM/BED: D[facility] AUTHOR: YELITZA,DOC PHYSICIAN: REFERRING PHYSICIAN: TATYANA JOHN MD DATE OF SERVICE: 11/27/19 Discharge Plan Patient Name: LENY TORRES Facility: [facility]:[place] : 1935 Planned Disposition: Home with Home Health Anticipated Discharge Date: Discharge Date: Expected LOS: Initial Reviewer: [email or web address] Initial Review Date: 11/23/2019 Generated: 11/27/19 8:37 pm Comments DCP- Discharge Planning Updated by [id number]: Silvia Meek on 11/27/19 6:[address] CM has spoke to Inpatient Rehab @ [facility] of transfer request and approved referral form from [place]. CM contacted [place] expeditor (Merry) she took patient information and stated CM should receive a call back. KEVIN also called [facility] [phone] with [place] to see if the referral form covered inpatient rehab.CM was sent to [place] Fly Rail Operator Suzanne Spence [phone] and left a message. CM received a call from Silvia [phone] at [place] requesting Clinicals fax [phone]. CM faxed requested clinical and awaiting determination. CM spoke with Cherise in INpatient Rehab and gave her Silvia information to follow up with. DCP- Discharge Planning Updated by [id number]: Silvia Meek on 11/23/19 7:[address] Patient Name: LENY TORRES Admission Status: Urgent Accout number: [id number] Admission Date: 11-20-2019 : 1935 Admission Diagnosis: Attending: TATYANA JOHN Current LOS: 3 Anticipated DC Date: Planned Disposition: Home with Home Health Primary Insurance: [place] [employer] Discharge Planning Comments: CM met with patient to complete initial dc planning assessment. CM educated patient on the CM role and verbal consent given by patient to complete assessment. CM verified patient's address, phone number, and emergency contact phone numbers. Patient lives at home with his spouse. At discharge patient plans to return home and feels that this is a safe discharge. CM discussed availability of home health, rehab services, and medical equipment. [facility] with [facility] and plans to resume care upon discharge. HONG signed. Patient may require walk test for 02 if needed upon discharge. CM will continue to follow and will assist as needed with dc plans/needs. Fly Rail Operator: Silvia Meek DCPIA - Discharge Planning Initial Assessment Updated by [email or web address]: Silvia Meek on 11/23/19 8:05 pm * Is the patient Alert and Oriented? Yes * How many steps to enter\exit or inside your home? ramp * PCP [facility] * [facility] * Preadmission Environment Home with Family * ADLs Independent * Other Equipment WALKER, W/C, BSC, GRAB BARS, HAND HELD SHOWER * List name and contact numbers for known caregivers / representatives who currently or will assist patient after discharge: DC BRIAN - [facility] - [phone] * Verbal permission to speak to the caregivers and representatives has been obtained from the patient. Yes * Community resources currently utilized Home Health * Please name any agencies selected above. [facility] * Additional services required to return to the preadmission environment? No * Can the patient safely return to the preadmission environment? Yes * Has this patient been hospitalized within the prior 30 days at any hospital? No Coverage Notice Reviewer: [id number] - Silvia Meek Notice Issued Date-Time: 11/23/2019 11:35 Notice Type: Patient Choice Letter Notice Delivered To: Family Member Relationship to Patient: Spouse Air Traffic Control Specialist Center Name: Jada Torres Delivery Method: HAND - Hand Delivered Carlyn Days: Prior Verbal Notification: Recipient Understood Notice: Yes Recipient Signature: Yes Med Rec Note Co-signed by Attending: Coverage Notice Comment: Last DP export: 11/27/19 1:06 pm Patient Name: LENY TORRES Page [id number] at 1938 All edits/amendments must be made on the electronic document DICTATION DATE: 11/27/191936 ENGRAVER HAND HARD METALS: JYOTHI 11/27/191936 RPT#: [id number] DC DATE: STATUS: ADM IN [facility] [address] [place] [address] END OF REPORT
--- NOTE | 2019-11-27 20:00 | NUR ---
CHG BATH AND LINEN CHANGE COMPLETE. PT ASSISTED BACK TO TO BED WITH MIN ASSISTANCE.
--- NOTE | 2019-11-27 20:50 | NUR ---
O2 SAT 90% WHILE SLEEPING, PT PLACED ON 40% BIPAP FOR BEDTIME.
--- NOTE | 2019-11-27 23:00 | NUR ---
PT TAKEN OFF BIPAP AND PLACED ON NC. O2 SAT 95 ON 2L HF NC. REASSESSMENT COMPLETE, SEE FLOWSHEET. VSS. IS PERFORMED X 5, PT PULLED 1500. DENIES ANY OTHER NEEDS AT THIS TIME. WILL MONITOR.
[2019-11-28] VITALS (24 sets, daily range): BP systolic 110–145; BP diastolic 43–55
--- NOTE | 2019-11-28 03:00 | NUR ---
REASSESSMENT COMPLETE, SEE FLOWSHEET.
[2019-11-28 05:13] LABS: BASOPHILS 0.3 % (0-2); EOSINOPHILS 7.6 % (0-7); HEMATOCRIT 31.2 % (42.0-54.0); HEMOGLOBIN 9.9 g/dL (13.5-17.5); IMMATURE GRANULOCYTES 0.3 % (0-5); LYMPHOCYTES 14.5 % (15-50); MCH 29.8 pg (26.0-34.0); MCHC 31.7 g/dL (31.0-37.0); MEAN PLATELET VOLUME 10.3 fL (7.4-10.4); MONOCYTES 10.3 % (2-11); PLATELET COUNT 261 10x3/uL (130-400); RBC 3.32 10x6/uL (4.20-6.10); RDW 15.4 % (11.5-14.5); WBC 7.9 10x3/uL (4.8-10.8)
[2019-11-28 05:38] LABS: CALC OSMOLALITY 271 mosm/kg (275-300); CARBON DIOXIDE 24.6 mmol/L (21.0-32.0); CHLORIDE - SERUM 102 mmol/L (98-107); GLUCOSE 81 mg/dL (74-106); POTASSIUM - SERUM 3.9 mmol/L (3.5-5.1); SODIUM 135 mmol/L (136-145); UREA NITROGEN 20 mg/dL (7-18); eGFR NON AFRICAN AMERICAN 76 mL/min (90-120)
--- NOTE | 2019-11-28 06:00 | NUR ---
PT AMBULATED TO BEDSIDE CHAIR WITH MIN ASSISTANCE. MEDS GIVEN AND TOLERATED. IS X 5, PULLED 1500.
--- NOTE | 2019-11-28 08:19 | NUR ---
PT ATE A COUPLE OF BITES OUT OF HIS BREAKFAST TRAY. STATED HE WAS NOT HUNGRY. SITTING IN CHAIR DRINKING COFFEE CURRENTLY. WILL CONTINUE TO MONITOR
--- NOTE | 2019-11-28 11:16 | NUR ---
Nutrition Follow-up: Pt reports poor appetite; ate a few bites of breakfast this AM. Per chart review, noted pt had trouble swallowing dinner last night with coughing; diet downgraded back to pureed after being upgraded to mech soft earlier in the day. Does not like Ensure/Boost. Diet: Regular, Pureed with Thin Liquids Wt: 154# (11/27); 147.8# (11/25); 143.6# (11/20) Last BM: 11/25 per pt Labs noted: Na 135, Ca 8.0 Meds noted: Linzess, Senokot, Colace, Protonix -Encourage PO intake and honor food preferences within diet restrictions. -MD may consider appetite stimulant. -Monitor wt. -RD following.
--- NOTE | 2019-11-28 12:55 | NUR ---
PT RESTING COMFORTABLY IN CHAIR. ON 2L O2 VIA NC. NO FEVER NOTED AT THIS TIME. DENIES HAVING ANY PAIN. HAS POOR APPETITE. DR. ACEVEDO AT BEDSIDE AT THIS TIME. NO FURTHER NEEDS. WILL CONTINUE TO MONITOR.
--- NOTE | 2019-11-28 13:15 | NUR ---
Rehab Note- Spoke with Silvia with the [facility] stating that they have a rehab bed avaliable for the patient tomorrow and that the patient could use his Medicare benefits/rights for [facility] Acute Inpatient Rehab but that they would have to take responsibilty for any financial occurances with it. Stated that she had also spoken with KEVIN Vega. Cherise Arevalo RN Clinical Liaison, [facility] Rehab
--- NOTE | 2019-11-28 17:00 | NUR ---
TOOK PT HIS DINNER TRAY. ATE A FEW BITES. PT STATED HE WAS NOT VERY HUNGRY. WILL CONTINUE TO MONITOR
--- NOTE | 2019-11-28 19:00 | NUR ---
SHIFT ASSESESMENT COMPLETED. PT CARE ASSUMED, MONITORS ON AND WORKING VITALS STABLE. PT AWAKE AND ALERT, NO SIGNS/SYMPTOMS OF PAIN OR DISCOMFORT NOTED. CALL LIGHT WITHIN REACH, SEE FLOW SHEET FOR FURTHER DETAILS. WILL CONTINUE TO OBSERVE.
--- NOTE | 2019-11-28 19:15 | MORECARE ---
CASE MANAGEMENT DISCHARGE SUMMARY PATIENT: LENY TORRES UNIT: [id number] ADM DATE: 11/20/19 AGE: 84 : 35 SEX: M ROOM/BED: D[facility] AUTHOR: YELITZA,DOC PHYSICIAN: REFERRING PHYSICIAN: TATYANA JOHN MD DATE OF SERVICE: 11/28/19 Discharge Plan Patient Name: LENY TORRES Facility: [facility]:[place] : 1935 Planned Disposition: Home with Home Health Anticipated Discharge Date: Discharge Date: Expected LOS: Initial Reviewer: [id number] Initial Review Date: 11/23/2019 Generated: 11/28/19 8:15 pm Comments DCP- Discharge Planning Updated by [id number]: Silvia Meek on 11/28/19 6:[address] CM has spoke with Silvia at [place] she stated that the patient had been approved for [facility] but the patient and spouse are refusing to go to . Silvia stated that the patient can go to Inpatient Rehab @ [facility] under his Medicare but he would be liable for the 20% that Medicare doesn't pay. Patient's spouse contacted patient advocate at the [place] - Emily Meyer [phone] to see if should could get something approved. Emily spoke with and asked for CM to call [facility] [phone] and explain situation to see if they could assist with getting patient approved here for rehab. CM left message with Suzanne Spence [phone] and Precious Wheeler [phone]. CM awaiting callback to see if anything can be done d/t patient and spouse age and condition. CM will continue to follow and assist as needed with discharge planning / needs. DCP- Discharge Planning Updated by [id number]: Silvia Meek on 11/27/19 6:[address] CM has spoke to Inpatient Rehab @ [facility] of transfer request and approved referral form from [place]. CM contacted [place] expeditor (Merry) she took patient information and stated CM should receive a call back. CM also called [facility] [phone] with [place] to see if the referral form covered inpatient rehab.CM was sent to [place] Ultrasonic Tester Suzanne Spence [phone] and left a message. CM received a call from Silvia [phone] at [place] requesting Clinicals fax [phone]. CM faxed requested clinical and awaiting determination. CM spoke with Cherise in INpatient Rehab and gave her Silvia information to follow up with. DCP- Discharge Planning Updated by [id number]: Silvia Meek on 11/23/19 7:[address] Patient Name: LENY TORRES Admission Status: Urgent Accout number: [id number] Admission Date: 11-20-2019 : 1935 Admission Diagnosis: Attending: TATYANA JOHN Current LOS: 3 Anticipated DC Date: Planned Disposition: Home with Home Health Primary Insurance: [place] [employer] Discharge Planning Comments: CM met with patient to complete initial dc planning assessment. CM educated patient on the CM role and verbal consent given by patient to complete assessment. CM verified patient's address, phone number, and emergency contact phone numbers. Patient lives at home with his spouse. At discharge patient plans to return home and feels that this is a safe discharge. CM discussed availability of home health, rehab services, and medical equipment. Patient has home health with [place] and plans to resume care upon discharge. HONG signed. Patient may require walk test for 02 if needed upon discharge. CM will continue to follow and will assist as needed with dc plans/needs. Ultrasonic Tester: Silvia Gaviota DCPIA - Discharge Planning Initial Assessment Updated by [id number]: Silvia Meek on 11/23/19 8:05 pm * Is the patient Alert and Oriented? Yes * How many steps to enter\exit or inside your home? ramp * PCP [facility] * [facility] * Preadmission Environment Home with Family * ADLs Independent * Other Equipment WALKER, W/C, BSC, GRAB BARS, HAND HELD SHOWER * List name and contact numbers for known caregivers / representatives who currently or will assist patient after discharge: DC TORRES - SON - [phone] * Verbal permission to speak to the caregivers and representatives has been obtained from the patient. Yes * Community resources currently utilized Home Health * Please name any agencies selected above. [facility] * Additional services required to return to the preadmission environment? No * Can the patient safely return to the preadmission environment? Yes * Has this patient been hospitalized within the prior 30 days at any hospital? No Coverage Notice Reviewer: [id number] Makayla Meek Notice Issued Date-Time: 11/23/2019 11:35 Notice Type: Patient Choice Letter Notice Delivered To: Family Member Relationship to Patient: Spouse Sales Commissions Analyst Name: Jada Torres Delivery Method: HAND - Hand Delivered Carlyn Days: Prior Verbal Notification: Recipient Understood Notice: Yes Recipient Signature: Yes Med Rec Note Co-signed by Attending: Coverage Notice Comment: Last DP export: 11/27/19 6:37 pm Patient Name: LENY TORRES Page [phone] at 191 All edits/amendments must be made on the electronic document DICTATION DATE: 11/28/191914 CROWNING HAMMER OPERATOR: JYOTHI 11/28/191914 RPT#: [id number] DC DATE: STATUS: ADM IN [facility] [address] [place] [address] END OF REPORT
--- NOTE | 2019-11-28 21:00 | NUR ---
CHG BED BATH GIVEN, CLEAN LINENS ON AND PT ASSISTED INTO BED. MONITORS ON AND WORKING, VITALS STABLE, CALL LIGHT WITHIN REACH, WILL CONTINUE TO OBSERVE.
--- NOTE | 2019-11-28 23:00 | NUR ---
PT LYING IN BED RESTING. MONITORS ON AND WORKING, VITALS STABLE, CALL LIGHT WITHIN REACH, WILL CONTINUE TO OBSERVE.
[2019-11-29] VITALS (22 sets, daily range): BP systolic 92–144; BP diastolic 35–59
--- NOTE | 2019-11-29 01:00 | NUR ---
PT LYING IN BED RESTING. MONITORS ON AND WORKING, VITALS STABLE, CALL LIGHT WITHIN REACH, WILL CONTINUE TO OBSERVE.
[2019-11-29 06:31] LABS: BASOPHILS 0.3 % (0-2); EOSINOPHILS 7.3 % (0-7); HEMATOCRIT 32.2 % (42.0-54.0); HEMOGLOBIN 10.3 g/dL (13.5-17.5); IMMATURE GRANULOCYTES 0.4 % (0-5); LYMPHOCYTES 14.2 % (15-50); MCH 30.1 pg (26.0-34.0); MCV 94.2 fL (80.0-100.0); MONOCYTES 9.7 % (2-11); NEUTROPHILS 68.1 % (40-80); PLATELET COUNT 298 10x3/uL (130-400); RBC 3.42 10x6/uL (4.20-6.10); RDW 15.6 % (11.5-14.5); WBC 7.9 10x3/uL (4.8-10.8)
[2019-11-29 06:56] LABS: CALC OSMOLALITY 273 mosm/kg (275-300); CALCIUM 8.5 mg/dL (8.5-10.1); CARBON DIOXIDE 29.5 mmol/L (21.0-32.0); CHLORIDE - SERUM 102 mmol/L (98-107); CREATININE - SERUM 0.9 mg/dL (0.6-1.3); GLUCOSE 95 mg/dL (74-106); SODIUM 136 mmol/L (136-145); UREA NITROGEN 17 mg/dL (7-18); eGFR NON AFRICAN AMERICAN 85 mL/min (90-120)
--- NOTE | 2019-11-29 07:00 | NUR ---
RECEIVED BEDSIDE REPORT ON PATIENT AND ASSUMED CARE. PATIENT SITTING UP IN BEDSIDE CHAIR, ALERT AND ORIENTED X 4, ON O2 VIA NC AT 2 LPM WITH SPO2 96%. BBS WITH EXPIRATORY WHEEZES NOTED AND MILD CRACKLES, DIMINISHED IN THE BASES. CM SHOWS RRR, NO ECTOPY NOTED NSR RATE OF 66. SADIE HOSE AND SCDS IN PLACE. HEAD TO TOE ASSESSMENT COMPLETED.
--- NOTE | 2019-11-29 08:30 | NUR ---
DR. JOHN AT ROOM UPDATED AND EXAMINES PATIENT. TO RESTART LASIX DUE TO FLUID BUILD UP, VSS. PATIENT ATE 20% OF BREAKFAST TRAY. GIVEN MORNING MEDS PER NOV.
--- NOTE | 2019-11-29 09:34 | NUR ---
PATIENT SITTING UP IN BEDSIDE CHAIR, VSS. NO NEEDS AT THIS TIME.
--- NOTE | 2019-11-29 10:00 | NUR ---
PATIENT UP TO BATHROOM WITH ASSIST, TOLERATES WELL AND HAS BM. BACK TO BEDSIDE CHAIR.
--- NOTE | 2019-11-29 11:00 | NUR ---
REASSESSMENT COMPLETED. VSS. SITTING IN BEDSIDE CHAIR, VISITING WITH .
--- NOTE | 2019-11-29 15:04 | NUR ---
REASSESSMENT COMPLETED. VSS. IS AVERAGING [phone]. NO NEEDS AT THIS TIME. AT BEDSIDE.
--- NOTE | 2019-11-29 19:30 | NUR ---
PT A/OX4, O2 @ 2L VIA NC, JEY NOTED BILAT, PT UP IN CHAIR AT BEDSIDE, CALL LIGHT AND URINAL IN REACH, NO C/O @ THIS TIME
--- NOTE | 2019-11-29 21:00 | NUR ---
PT AWAKE, TAKES PO MED WITHOUT DIFFICULTY, VITALS STABLE
--- NOTE | 2019-11-29 23:00 | NUR ---
PT SLEEPING WITH NO DISTRESS NOTED, WILL CONT TO MONITOR
[2019-11-30] VITALS (16 sets, daily range): BP systolic 118–153; BP diastolic 51–63
--- NOTE | 2019-11-30 01:00 | NUR ---
PT REMAINS ASLEEP WITH NO DISTRESS, WILL CONT TO MONITOR
[2019-11-30 05:35] LABS: BASOPHILS 0.3 % (0-2); HEMATOCRIT 31.9 % (42.0-54.0); HEMOGLOBIN 10.2 g/dL (13.5-17.5); IMMATURE GRANULOCYTES 0.3 % (0-5); LYMPHOCYTES 14.8 % (15-50); MCH 30.1 pg (26.0-34.0); MCV 94.1 fL (80.0-100.0); MEAN PLATELET VOLUME 9.9 fL (7.4-10.4); MONOCYTES 11.6 % (2-11); PLATELET COUNT 331 10x3/uL (130-400); RBC 3.39 10x6/uL (4.20-6.10); RDW 15.6 % (11.5-14.5); WBC 7.3 10x3/uL (4.8-10.8)
[2019-11-30 06:15] LABS: ANION GAP 11.2 mmol/L (8-16); CALCIUM 8.1 mg/dL (8.5-10.1); CARBON DIOXIDE 28.3 mmol/L (21.0-32.0); CREATININE - SERUM 1.1 mg/dL (0.6-1.3); POTASSIUM - SERUM 3.5 mmol/L (3.5-5.1)
--- NOTE | 2019-11-30 07:00 | NUR ---
RECEIVED BEDSIDE REPORT AND ASSUMED CARE OF PATIENT. PATIENT ALERT AND ORIENTED X 4, SITTING UP IN BEDSIDE CHAIR, VSS. BBS - COARSE AND DIMINISHED IN BASES, SPO2 - 95% ON 2 LPM VIA NC. CM - NSR RATE OF 67, NO ECTOPY NOTED. HEAD TO TOE ASSESSMENT COMPLETED.
--- NOTE | 2019-11-30 09:23 | NUR ---
REHAB PRESCREENING Rehab has been following this patient with confirmation from the billing office today that his Medicare has been verified by Yajaira Crabtree, [facility] Financial Counselor. Yajaira will discuss co-pay and deductible when his arrives today. I will begin his screen and plan for admission to [facility] today if he and his are agreeable to financial terms and his physicians feel he is appropriate for discharge. Thank you for this referral! Rose Neal, [facility]G [facility]ER Rehab PD
--- NOTE | 2019-11-30 09:49 | NUR ---
COMPLETE CHG BATH GIVEN, MIDSTERNAL AND SUBSTERNAL INCISIONS WELL APPROXIMATED AND HEALING LEFT CHIDI. DESTATS TO 87% ON ROOM AIR SITTING IN CHAIR. PT AT ROOM AND WALKS PATIENT IN HALLWAY ON PORTABLE 02 AT 2 LPM. WALKS APPROXIMATELY 200 FT.
--- NOTE | 2019-11-30 10:55 | NUR ---
REASSESSMENT COMPLETED. VSS. NO NEEDS AT THIS TIME.
--- NOTE | 2019-11-30 12:34 | NUR ---
Nutrition Follow-up: Pt sleeping soundly with sheet over his head at time of visit this AM. RN reports pt ate ~40% of breakfast this AM and ~50% of dinner last night. ST upgraded diet to mech soft. Noted plans for possible d/c to rehab. Diet: Regular, Mech Soft Wt: 148.5# (11/29); 154# (11/27); 143.6# (11/20) Last BM: 11/28 per chart Labs noted: Ca 8.1 Meds noted: Lasix, Micro K, Linzess, Senokot, Colace, Protonix -Continue current diet as tolerated. -Encourage PO intake and honor food preferences within diet restrictions. -Monitor wt. -RD following.
[2019-11-30] MEDS ORDERED: COREG 3.1253.125 MG PO (12:52)
[2019-11-30] MEDS ORDERED: AMIODARONE HCL200 MG PO (12:53)
[2019-11-30] MEDS ORDERED: LASIX40 MG PO (13:17)
[2019-11-30] MEDS ORDERED: PLAVIX75 MG PO (13:22)
--- NOTE | 2019-11-30 14:52 | NUR ---
REPORT CALLED TO AKIKO DUCKWORTH AT REHAB, TO TRANSFER PATIENT TO INPATIENT REHAB ROOM #108A. PATIENT TRANSPORTED VIA WHEELCHAIR AND PORTABLE O2.
--- NOTE | 2019-11-30 22:17 | MORECARE ---
CASE MANAGEMENT DISCHARGE SUMMARY PATIENT: LENY TORRES UNIT: [id number] ADM DATE: 11/20/19 AGE: 84 : 35 SEX: M ROOM/BED: D.[facility] AUTHOR: YELITZA,DOC PHYSICIAN: REFERRING PHYSICIAN: TATYANA JOHN MD DATE OF SERVICE: 11/30/19 Discharge Plan Patient Name: LENY TORRES Facility: [facility]:[place] : 1935 Planned Disposition: Home with Home Health Anticipated Discharge Date: Discharge Date: 11/30/2019 Expected LOS: Initial Reviewer: [id number] Initial Review Date: 11/23/2019 Generated: 11/30/19 11:17 pm Comments DCP- Discharge Planning Updated by [email or web address]: Silvia Meek on 11/30/19 9:[address] CM spoke with patient's and business telephone clerk telegraph office. Patient and spouse both agreed that Inpatient Rehab is best choice and royalr was signed for Medicare to be used for billing in Rehab. Yajaira in business office stated they could work out a payment plan. CM spoke to Shelley Todd [phone] (cell) with the [facility] she requested notification 2 days prior to d/c from rehab to get this set up for patient. Mikal Mi [phone] with [facility] stated that he would need a days notice if patient is discharge with Home 02. Rehab can fax records to [phone]. CM gave all [facility] discharge information to Khushboo BROWN @ Rehab Unit. CM will continue to follow and assist as needed with discharge planning needs DCP- Discharge Planning Updated by [id number]: Silvia Meek on 11/28/19 6:[address] KEVIN has spoke with Slivia at [facility] she stated that the patient had been approved for [facility] but the patient and spouse are refusing to go to . Silvia stated that the patient can go to Inpatient Rehab @ [facility] under his Medicare but he would be liable for the 20% that Medicare doesn't pay. Patient's spouse contacted patient advocate at the [facility] - Emily Meyer [phone] to see if should could get something approved. Emily spoke with CM and asked for CM to call [facility] [phone] and explain situation to see if they could assist with getting patient approved here for rehab. CM left message with Suzanne Spence [phone] and Precious Wheeler [phone]. CM awaiting callback to see if anything can be done d/t patient and spouse age and condition. CM will continue to follow and assist as needed with discharge planning / needs. DCP- Discharge Planning Updated by [id number]: Silvia Meek on 11/27/19 6:[address] CM has spoke to Inpatient Rehab @ [facility] of transfer request and approved referral form from [facility]. CM contacted VA expeditor (Merry) she took patient information and stated CM should receive a call back. CM also called [facility] [phone] with [facility] to see if the referral form covered inpatient rehab.CM was sent to [facility] Director Of Instrumental Music Suzanne Spence [phone] and left a message. CM received a call from Silvia [phone] at [facility] requesting Clinicals fax [phone]. CM faxed requested clinical and awaiting determination. CM spoke with Cherise in INpatient Rehab and gave her Silvia information to follow up with. DCP- Discharge Planning Updated by [id number]: Silvia Meek on 11/23/19 7:[address] Patient Name: LENY TORRES Admission Status: Urgent Accout number: [id number] Admission Date: 11-20-2019 : 1935 Admission Diagnosis: Attending: TATYANA JOHN Current LOS: 3 Anticipated DC Date: Planned Disposition: Home with Home Health Primary Insurance: [place] [employer] Discharge Planning Comments: CM met with patient to complete initial dc planning assessment. CM educated patient on the CM role and verbal consent given by patient to complete assessment. CM verified patient's address, phone number, and emergency contact phone numbers. Patient lives at home with his spouse. At discharge patient plans to return home and feels that this is a safe discharge. CM discussed availability of home health, rehab services, and medical equipment. [facility] and plans to resume care upon discharge. HONG signed. Patient may require walk test for 02 if needed upon discharge. CM will continue to follow and will assist as needed with dc plans/needs. Director Of Instrumental Music: Silvia Meek DCPIA - Discharge Planning Initial Assessment Updated by [id number]: Silvia Meek on 11/23/19 8:05 pm * Is the patient Alert and Oriented? Yes * How many steps to enter\exit or inside your home? ramp * PCP [facility] * [facility] * Preadmission Environment Home with Family * ADLs Independent * Other Equipment WALKER, W/C, BSC, GRAB BARS, HAND HELD SHOWER * List name and contact numbers for known caregivers / representatives who currently or will assist patient after discharge: [facility] - [phone] * Verbal permission to speak to the caregivers and representatives has been obtained from the patient. Yes * Community resources currently utilized Home Health * Please name any agencies selected above. [facility] * Additional services required to return to the preadmission environment? No * Can the patient safely return to the preadmission environment? Yes * Has this patient been hospitalized within the prior 30 days at any hospital? No Coverage Notice Reviewer: [id number] - Silvia Meek Notice Issued Date-Time: 11/23/2019 11:35 Notice Type: Patient Choice Letter Notice Delivered To: Family Member Relationship to Patient: Spouse File Conversion Operator Name: Jada Torres Delivery Method: HAND - Hand Delivered Carlyn Days: Prior Verbal Notification: Recipient Understood Notice: Yes Recipient Signature: Yes Med Rec Note Co-signed by Attending: Coverage Notice Comment: Last DP export: 11/28/19 6:15 pm Patient Name: LENY TORRES Page [phone] at 2217 All edits/amendments must be made on the electronic document DICTATION DATE: 11/30/192216 INSURANCE ACCOUNT SPECIALIST: JYOTHI 11/30/192216 RPT#: [id number] DC DATE:11/30/19 STATUS: DIS IN [facility] [address] [place] [address] END OF REPORT
== END 2019-11-30 14:54 | DRG 235 ==
LOC: D.SDCHOLD 08:30 → D.CVICU 11-20 05:00 → D.SDCHOLD 11-20 07:30 → D.CVICU 11-20 11:21
PROVIDERS: ADMIT Thoracic Surgery (Cardiothoracic Vascular Surgery); ATTEND Thoracic Surgery (Cardiothoracic Vascular Surgery)
PROC: 06BP4ZZ Excision of Right Saphenous Vein, Percutaneous Endoscopic Approach (ICD-10-PCS; 2019-11-20)
PROC: 5A02210 Assistance with Cardiac Output using Balloon Pump, Continuous (ICD-10-PCS; 2019-11-20)
PROC: 5A1221Z Performance of Cardiac Output, Continuous (ICD-10-PCS; 2019-11-20)
PROC: B24BZZ4 Ultrasonography of Heart with Aorta, Transesophageal (ICD-10-PCS; 2019-11-20)
PROC: 02100Z9 Bypass Coronary Artery, One Artery from Left Internal Mammary, Open Approach (ICD-10-PCS; principal; 2019-11-20 07:30)
PROC: 021009W Bypass Coronary Artery, One Artery from Aorta with Autologous Venous Tissue, Open Approach (ICD-10-PCS; 2019-11-20 07:30)
DX: I25.10 Atherosclerotic heart disease of native coronary artery without angina pectoris (principal); R57.0 Cardiogenic shock; J98.11 Atelectasis; I50.22 Chronic systolic (congestive) heart failure; J90 Pleural effusion, not elsewhere classified; I25.5 Ischemic cardiomyopathy; D64.9 Anemia, unspecified; E78.5 Hyperlipidemia, unspecified; J44.9 Chronic obstructive pulmonary disease, unspecified; N40.0 Benign prostatic hyperplasia without lower urinary tract symptoms; F32.9 Major depressive disorder, single episode, unspecified; I11.0 Hypertensive heart disease with heart failure; R53.81 Other malaise; E87.6 Hypokalemia

== ENCOUNTER 2019-11-30 11:57 | Inpatient (IN) | payer MEDICARE ==
[~2019-11-30] VITALS: Ht 172.7 cm; Wt 55.3 kg
--- NOTE | ~2019-11-30 | RHP ---
PATIENT: LENY TORRES MEDICAL RECORD: [id number] ACCOUNT: [id number] [facility] : [birth year] ADMISSION DATE: 11/30/19 REHABILITATION HISTORY AND PHYSICAL EXAMINATION POST ADMISSION PHYSICIAN EXAMINATION ADMITTING DIAGNOSIS: Status post coronary artery bypass grafting with extended ICU stay. HISTORY OF PRESENT ILLNESS: The patient is an 84-year-old gentleman with a history of hypertension, hyperlipidemia, COPD, depression and coronary artery disease. He is status post selective coronary artery bypass grafting and underwent a left heart catheterization on 11/14/[address] Mi was found to have severe multivessel coronary artery disease and coronary artery bypass grafting was recommended. On 11/20/2019, he underwent CABG by Dr. Khan. The patient has a 86-elxc-jlsy smoking. He quit in 2005. The patient has been requiring some supplemental O2, he has been diagnosed with COPD and has been on Spiriva, Symbicort and [facility] He has had pulmonary function tests checked in the past also. He has got obstructive sleep apnea, but cannot use a CPAP secondary to claustrophobia. The patient has an ejection fraction of 35% to 40%. He has got a normocytic anemia. The patient has had difficulty with mastication post-extubation, has required speech therapy to follow him. Prior to this admission, he was living with his , using a rolling walker for ambulation, was independent with ADLs. Barriers to his discharge at this time include need for telemetry, comorbidities require management by rehabilitation physician to ensure safe and effective treatment during his stay. He will also require interdisciplinary therapies for PT, OT, speech therapy and 24-hour nursing care in order to get back to his prior level of function. He has been monitored closely his lab values, medication adjustments. He has got decreased activity tolerance, decreased strength, balance deficits, impaired mobility, dyspnea on exertion. He is a high fall risk and has self-care deficits. COMORBIDITIES: Include dysarthria, obstructive sleep apnea. He has got a history of CHF. He has got pleural effusion, emphysema. He is legally blind, constipation, prostate problems, claustrophobia, BPH and multivessel coronary artery disease. PAST MEDICAL HISTORY: Significant for legally blind, he has got a history of need for CPAP, COPD, he has got history of arthritis, chronic neck pain, dry skin, depression, claustrophobia, cataracts. PAST SURGICAL HISTORY: Includes cataract surgery. He has had a double hernia repair, gallbladder, appendectomy, colon resection. ALLERGIES: PENICILLIN, SULFA, LISINOPRIL, MORPHINE AND SHELLFISH. CURRENT MEDICATIONS: Include Dulcolax, he is on 10 mg 3 times weekly. He is on Crestor 10 mg daily. He is on furosemide 40 mg daily, folic acid 0.4 mg daily, vitamin B12 1000 mcg daily, Plavix 75 mg, aspirin chewable 81 mg daily, allopurinol 100 mg daily, Pepcid 20 mg at bedtime, he is on potassium chloride 20 mEq b.i.d., he is on amiodarone 400 mg b.i.d., he is on Atrovent 0.5 mg q.i.d., Brovana 15 mcg b.i.d., budesonide 0.5 mg b.i.d., carvedilol 3.125 mg b.i.d. with meals, Robitussin liquid 5 cc every 4 hours p.r.n., Tessalon Perles 100 mg t.i.d., and Tylenol 325 every 4 hours p.r.n. HISTORY AND PHYSICAL [id number] LENY TORRES HABITS: No current alcohol or tobacco use, quit smoking in 2005. FAMILY HISTORY: Noncontributory. SOCIAL HISTORY: The patient hopes to return back home and get back to his prior level of functioning. REVIEW OF SYSTEMS: GENERAL: Does complain of weakness and fatigue. HEENT: Denies cold, cough, or congestion. CARDIOVASCULAR: Denies any chest pain. PHYSICAL EXAMINATION: VITAL SIGNS: Stable, afebrile. GENERAL: A somewhat thin gentleman in no acute distress, alert upon exam. HEENT: Normocephalic and atraumatic. Mucosa moist. NECK: Supple. No lymphadenopathy. LUNGS: Clear in upper [place] and does have decreased breath sounds in the bases. HEART: Regular rate and rhythm. ABDOMEN: Benign. EXTREMITIES: No clubbing, cyanosis or edema. NEUROLOGIC: He does have noted proximal muscle weakness, 3/5 in his legs. LABORATORY DATA: White count is 8.6, H&H of 12 and 37, and platelet count is 473. Sodium is 137, potassium 4.3, BUN and creatinine of 15 and 1.2, and blood sugar is noted to be 95. ASSESSMENT: An 84-year-old gentleman admitted to the rehab with a working diagnosis of prolonged hospitalization secondary to coronary artery bypass grafting. The patient has potential to make improvement. We instituted the following multiple disciplinary therapies including, but not limited to physical, occupational, respiratory, speech, nutritional services, prosthetics and orthotics. Given his complex medical condition and risks for more complications, rehabilitation services cannot be provided at a low level of care such a [facility] facility. PLAN: 1. Admit to [facility] for intensive inpatient therapy to include the following disciplines: A. Physical therapy to improve gait, all transfer skills and bed mobility to a modified independent level. B. Occupational therapy to improve activities of daily living. C. Case management to assist with discharge planning and placement options. D. Nutrition to assist with nutritional needs. E. Rehabilitation nursing to assist in monitoring the patient's underlying medical conditions and to assist with any type of bowel or bladder management. 2. The patient's current medication and medical care will be continued. 3. The patient will be placed on standard fall precautions. 4. The patient's estimated length of stay is approximately 7-10 days. 5. We will discuss this patient during care team staff meeting this week. Continue on these medications as appropriate and I will see again in the a.m. TRANSINT:[id number] Voice Confirmation ID: [id number] DOCUMENT ID: [id number] HISTORY AND PHYSICAL [id number] LENY TORRES notes whether there has been none or any medical/functional change since admission: - No change since preadmission screen. ROXANNA attests patient continues to be appropriate for IRF: - Continues to be appropriate. NARA HORAN MD CC: [id number] DICTATION DATE: 12/01/19 1158 GUEST SERVICES MANAGER: 12/01/19 1304 ADM IN [facility] [address] [place] [address]
[~2019-11-30 11:57] MED LIST changes: +FLUTICASONE PRO16 GM NASAL; +FOLATE0.4 MG PO; +ICYHOT; +NITROSTAT0.4 MG SL; +PLAVIX75 MG
[2019-11-30] MEDS ORDERED: COREG 3.1253.125 MG PO (12:52)
[2019-11-30] MEDS ORDERED: AMIODARONE HCL200 MG PO (12:53)
[2019-11-30] MEDS ORDERED: LASIX40 MG PO (13:17)
[2019-11-30] MEDS ORDERED: PLAVIX75 MG PO (13:22)
[2019-11-30 15:44] VITALS: BP 149/67; BMI 22.4
--- NOTE | 2019-11-30 19:34 | NUR ---
PT IS RESTING IN BED WITH EYES OPEN. ALERT AND ORIENTED X 3. PT IS [place], AND LEGALLY BLIND. SADIE HOSE ARE ON BILATERALLY. O2 IS ON @ 3LPM PER NC. NO SOB NOTED. PT USES URINAL PRN. SR'S ARE UP X 2 IN BED. CALL LIGHT AND BEDSIDE TABLE ARE WITHIN EASY REACH.
--- NOTE | 2019-11-30 22:00 | NUR ---
PT RESTING IN BED WITH EYES OPEN. NO NEEDS VOICED.
--- NOTE | 2019-12-01 00:01 | NUR ---
RESTING IN BED WITH EYES CLOSED.
--- NOTE | 2019-12-01 02:17 | NUR ---
I have reviewed this patient and I concur with the Shift Assessment completed by the Licensed Practical Nurse today this shift.
[2019-12-01 02:18] VITALS: BP 121/46
--- NOTE | 2019-12-01 04:52 | NUR ---
RESTING IN BED WITH EYES CLOSED.
[2019-12-01 06:51] LABS: BASOPHILS 0.5 % (0-2); EOSINOPHILS 7.6 % (0-7); HEMATOCRIT 37.8 % (42.0-54.0); IMMATURE GRANULOCYTES 0.4 % (0-5); LYMPHOCYTES 16.2 % (15-50); MCH 30.9 pg (26.0-34.0); MCHC 32.5 g/dL (31.0-37.0); MEAN PLATELET VOLUME 10.2 fL (7.4-10.4); MONOCYTES 7.9 % (2-11); NEUTROPHILS 67.4 % (40-80); RBC 3.98 10x6/uL (4.20-6.10); RDW 15.6 % (11.5-14.5); WBC 8.6 10x3/uL (4.8-10.8)
[2019-12-01 06:52] LABS: HEMOGLOBIN 12.3 g/dL (13.5-17.5); PLATELET COUNT 473 10x3/uL (130-400)
[2019-12-01 06:59] LABS: ANION GAP 12.4 mmol/L (8-16); CARBON DIOXIDE 28.9 mmol/L (21.0-32.0); CREATININE - SERUM 1.2 mg/dL (0.6-1.3)
[2019-12-01 07:00] LABS: POTASSIUM - SERUM 4.3 mmol/L (3.5-5.1)
[2019-12-01 08:00] VITALS: BP 117/45
--- NOTE | 2019-12-01 08:00 | NUR ---
PATIENT IS ALERT/ORENT. SITTING UP IN ROOM TO EAT BREAKFAST. CALL LIGHT WTHIN REACH. VOICES NO NEEDS AT THIS TIME. WILL CONTINUE WITH PLAN OF CARE.
--- NOTE | 2019-12-01 10:07 | NUR ---
OCCUPATIONAL THERAPIST HELPING PATIENT WITH A SHOWER.
--- NOTE | 2019-12-01 11:00 | NUR ---
I have reviewed this patient and I concur with the Shift Assessment completed by the Licensed Practical Nurse today this shift.
[2019-12-01 11:33] VITALS: Ht 172.7 cm; Wt 55.3 kg
--- NOTE | 2019-12-01 12:45 | NUR ---
PATIENT IS A MIN ASST WITH TRANSTERS FROM BED TO WHEELCHAIR AND WHEELCHAIR TO TOILET
--- NOTE | 2019-12-01 18:50 | NUR ---
GREETED PATIENT AND INTRODUCED MYSELF HIS NURSE. PATIENT IS LAYING IN BED RESTING AT THIS TIME. RESPIRATIONS EVEN. NO S/S OF DISTRESS. 1 L OF O2 VIA NC IN USE. CALL LIGHT IN REACH.
[2019-12-01 20:13] VITALS: BP 120/53
--- NOTE | 2019-12-02 01:11 | NUR ---
PT LAYING IN BED AWAKE. DENIES ANY NEEDS AT THIS TIME. O2 A 1L IN USE VIA NC. RESPIRATIONS EVEN. NO S/S OF DISTRESS. CALL LIGHT IN REACH.
[2019-12-02 08:00] VITALS: BP 139/59
--- NOTE | 2019-12-02 08:25 | NUR ---
PT SITTING UP IN BED EATING BREAKFAST, DENIES NEEDS. WCTM.
--- NOTE | 2019-12-02 09:30 | NUR ---
PT AM MEDS ADMINISTERED. PT DENIES NEEDS. WCTM.
--- NOTE | 2019-12-02 15:05 | NUR ---
PT SHOWERED, BED LINENS CHANGED. PT NOW RESING WITH EYES CLOSED, RR ARE EVEN AND UNLABORED. WCTM.
--- NOTE | 2019-12-02 17:57 | NUR ---
GREETED PATIENT AND INTROUDCED MYSELF HIS NURSE. PATIENT IS LAYING IN BED RESTING AT THIS TIME. O2 AT 2L IN USE VIA NC. RESPIRATIONS EVEN. NO S/S OF DISTRESS. PT. STATED THAT HE HAS BEEN USING HIS INCENTIVE SPIROMETER ALL DAY AND HEART PILLOW WHILE COUGHING. ENCOURAGED PT. TO CONTINUE WITH THOSE INTERVENTIONS. CALL LIGHT IN REACH.
--- NOTE | 2019-12-02 18:19 | NUR ---
PT RESTING IN BED, DENIES NEEDS. WCTM.
[2019-12-02 19:41] VITALS: BP 106/46
[2019-12-02 20:05] VITALS: BP 120/44
[2019-12-02 20:09] VITALS: BP 120/44
--- NOTE | 2019-12-02 23:56 | NUR ---
PT RESTING QUIETLY WITH EYES CLOSED. RESPIRATIONS EVEN. NO S/S OF DISTRESS. CALL LIGHT IN REACH.
--- NOTE | 2019-12-03 03:39 | NUR ---
PT RESTING QUIETLY WITH EYES CLOSED. RESPIRATIONS EVEN. NO S/S OF DISTRESS. O2 AT 2L IN USE VIA NC. CALL LIGHT IN REACH.
[2019-12-03 07:03] LABS: BASOPHILS 0.3 % (0-2); EOSINOPHILS 10.2 % (0-7); HEMATOCRIT 34.6 % (42.0-54.0); HEMOGLOBIN 11.2 g/dL (13.5-17.5); IMMATURE GRANULOCYTES 0.4 % (0-5); LYMPHOCYTES 18.6 % (15-50); MCH 30.3 pg (26.0-34.0); MCHC 32.4 g/dL (31.0-37.0); MCV 93.5 fL (80.0-100.0); MEAN PLATELET VOLUME 10.3 fL (7.4-10.4); MONOCYTES 11.1 % (2-11); NEUTROPHILS 59.4 % (40-80); PLATELET COUNT 454 10x3/uL (130-400); RDW 15.6 % (11.5-14.5); WBC 7.9 10x3/uL (4.8-10.8)
[2019-12-03 08:00] VITALS: BP 125/57
[2019-12-03 08:53] LABS: ANION GAP 9.6 mmol/L (8-16); CALCIUM 8.7 mg/dL (8.5-10.1); CARBON DIOXIDE 29.1 mmol/L (21.0-32.0); CREATININE - SERUM 1.2 mg/dL (0.6-1.3); POTASSIUM - SERUM 3.7 mmol/L (3.5-5.1)
--- NOTE | 2019-12-03 16:30 | NUR ---
PT RESTING IN BED WITH EYES OPEN CALL LIGHT IN REACH WILL MONITER
[2019-12-03 19:00] VITALS: BP 110/54
--- NOTE | 2019-12-03 19:04 | NUR ---
GREETED PATIENT AND INTRODUCED MYSELF HIS NURSE. PATIENT IS RESTING QUIETLY AT THIS TIME. O2 AT 1L IN USE. RESPIRATIONS EVEN. NO S/S OF DISTRESS. CALL LIGHT IN REACH.
--- NOTE | 2019-12-04 01:05 | NUR ---
PT. LAYING IN BED AWAKE. DENIES ANY NEEDS AT THIS TIME. O2 AT 2L IN USE VIA NC. CALL LIGHT IN REACH.
--- NOTE | 2019-12-04 03:49 | NUR ---
PT RESTING QUIETLY IN BED AWAKE. DENIES ANY NEEDS AT THIS TIME. CALL LIGHT IN REACH.
[2019-12-04 08:03] VITALS: BP 133/54
--- NOTE | 2019-12-04 08:11 | NUR ---
PT AM MEDS ADMINISTERED. PT DENIES NEEDS. WCTM.
--- NOTE | 2019-12-04 14:22 | NUR ---
Nutrition Follow-up: Diet: Regular [facility] Soft PO intake: 100% x last 3 meals; spoke with patient and family at bedside. States that appetite is "not good." States that he is a "snacker" so family brought in snacks for him (PB crax and snack cakes). He had eaten a lot of his baked potato from lunch. He wants a small soft fruit plate with all meals. Last BM: 12/03/19 WT: 127# (12/04/19)-standing; Admit WT: 147# (11/30/19)- bedscale vs. 136.8# (12/01/19)- standing Meds noted: lasix, dulcolax. Labs noted. Noted dramatic change in weight. This is likely 2/2 difference in scales vs. fluid status (noted patient on Lasix) vs. LBM loss from inadequate energy intake. Will continue to monitor this. Recommend continue current diet, will continue to honor all food preferences. RD following.
--- NOTE | 2019-12-04 16:21 | NUR ---
PATIENT ADMITTED TO REHAB FROM ACUTE FLOOR. [facility], [facility] AND THEY WILL RESUME WHEN DISHCARGED FROM REHAB. DME AT HOME IS A WALKER, WHEELCHAIR AND A BEDSIDE COMMODE. DISCHARGE PLANS ARE FOR PATIENT TO RETURN HOME WITH HIS FAMILY. WILL CONTINUE TO FOLLOW WITH PATIENT.
--- NOTE | 2019-12-04 18:05 | NUR ---
PT EATING DINNER, DENIES NEEDS. WCTM.
--- NOTE | 2019-12-04 18:45 | NUR ---
BEDSIDE REPORT COMPLETE. PT LYING IN BED SUPINE EYES CLOSED RESTING COMFORTABLY. EASILY AROUSED WITH VERBAL STIMULI. DENIES ANY NEEDS OR PAIN. CONTINUES ON 1L VIA NC. STERNUM AND LEFT LEG INCISION C/D/I. CL AND WATER WITHIN REACH. FALL PRECAUTIONS IN PLACE.
[2019-12-04 21:15] VITALS: BP 111/52
--- NOTE | 2019-12-04 23:15 | NUR ---
PT LYING IN BED SUPINE EYES CLOSED RESTING. RR EVEN AND UNLABORED. CL IN REACH
--- NOTE | 2019-12-05 01:19 | NUR ---
PT LYING IN BED SUPINE EYES CLOSED RESTING. RR EVEN AND UNLABORED. CL IN REACH
--- NOTE | 2019-12-05 04:24 | NUR ---
PT LYING IN BED SUPINE EYES CLOSED RESTING COMFORTABLY. CL IN REACH
[2019-12-05 07:55] LABS: BASOPHILS 0.5 % (0-2); EOSINOPHILS 11.9 % (0-7); HEMATOCRIT 36.5 % (42.0-54.0); HEMOGLOBIN 11.6 g/dL (13.5-17.5); IMMATURE GRANULOCYTES 0.5 % (0-5); LYMPHOCYTES 20.5 % (15-50); MCH 29.9 pg (26.0-34.0); MCHC 31.8 g/dL (31.0-37.0); MCV 94.1 fL (80.0-100.0); MEAN PLATELET VOLUME 10.3 fL (7.4-10.4); NEUTROPHILS 56.6 % (40-80); PLATELET COUNT 466 10x3/uL (130-400); RBC 3.88 10x6/uL (4.20-6.10); RDW 15.8 % (11.5-14.5); WBC 8.4 10x3/uL (4.8-10.8)
[2019-12-05 08:07] LABS: ANION GAP 12.3 mmol/L (8-16); CALCIUM 8.9 mg/dL (8.5-10.1); CARBON DIOXIDE 29.2 mmol/L (21.0-32.0); CREATININE - SERUM 1.4 mg/dL (0.6-1.3); POTASSIUM - SERUM 4.5 mmol/L (3.5-5.1)
--- NOTE | 2019-12-05 10:28 | NUR ---
PARTICIPATION IN THERAPY. NO C/O PAIN. ATE SMALL AMT OF BREAKFAST.
--- NOTE | 2019-12-05 12:30 | NUR ---
ASSISTED TO BED SBA. NO DISTRESS NOTED. CL IN REACH.
--- NOTE | 2019-12-05 14:12 | NUR ---
CARE TEAM MEETING: PATIENT IS DOING WELL IN THERAPY. TENATIVE DISCHARGE DATE IS 12/11/2019. WILL CONTINUE TO FOLLOW WITH PATIENT.
--- NOTE | 2019-12-05 18:25 | NUR ---
NO CHANGE IN ASSESSMENT. NO DISTRESS NOTED. RESTING. CL IN REACH.
--- NOTE | 2019-12-05 18:40 | NUR ---
BEDSIDE REPORT COMPLETE. PT SITTING UP IN BED. ALERT AND ORIENTED X4. DENIES ANY NEEDS OR PAIN. CONTINUES ON 2L VIA NC. STERNUM AND RIGHT LEG INCISIONS GLUED OPEN TO AIR. INCISION SITES WITHOUT RENESS OR SWELLING. CL IN REACH. FALL PRECAUTIONS IN PLACE. WILL CONTINUE TO MONITOR
[2019-12-05 20:50] VITALS: BP 112/50
--- NOTE | 2019-12-06 01:03 | NUR ---
PT LYING IN BED EYES CLOSED RESTING COMFORTABLY. RR EVEN AND UNLABORED. CONTINUES ON 1L VIA NC. CL IN REACH
--- NOTE | 2019-12-06 04:33 | NUR ---
PT LYING IN BED SUPINE HOB 15 DEGREES EYES CLOSED RESTING. RR EVEN AND UNLABORED. CL IN REACH
[2019-12-06 07:37] VITALS: BP 130/56
--- NOTE | 2019-12-06 07:46 | NUR ---
PATIENT IS ALERT/ORIENT. VERY HARD OF HEARING. BED ALARM ON. CALL LIGHT WITHIN REACH. VOICES NO NEEDS. WILL CONTINUE WITH PLAN OF CARE
--- NOTE | 2019-12-06 09:56 | NUR ---
PATIENT IN REHAB ROOM. WORKING WITH OCCUPATIONAL THERAPIST. PATIENT HAS A POOR APPETITE. CHOCOLATE ENSURE SAKE MADE FOR PATIENT
--- NOTE | 2019-12-06 10:59 | NUR ---
PATIENT IN REHAB ROOM. STATED THAT HE FELT DIZZINESS. VITAL TAKEN. B/P 88/35. PATIENT BROUGHT BACK INTO ROOM AND HELPED INTO BED. B/P 119/45. FOOT OF BED RAISED. HEAD LOWERED. PATIENT ALERT/ORIET/TALKING. NOTE LEFT WITH DR HORAN IN REGARDS TO MEDICATION PATIENT IS ON. WILL CONTINUE TO MONITOR
[2019-12-06 11:05] VITALS: BP 82/36
[2019-12-06 11:15] VITALS: BP 119/45
--- NOTE | 2019-12-06 11:32 | NUR ---
I have reviewed this patient and I concur with the Shift Assessment completed by the Licensed Practical Nurse today this shift.
--- NOTE | 2019-12-06 15:07 | NUR ---
PATIENT B/P 128/48. RESTING WELL IN BED. VOICES NO C/O. FLUIDS ENCOURGAGED
[2019-12-06 19:34] VITALS: BP 121/52
--- NOTE | 2019-12-06 20:07 | NUR ---
AWAKE AND ALERT. RESTING IN BED WITH O2/2.5 L. SOME COARSE LUNG SOUNDS. NO RESPIRATORY DISTRESS NOTED. INCISION TO CHEST AND RIGHT LEG HARVEST SITES HEALING AND NO DRAINAGE NOTED. CALL LIGHT IN REACH.
--- NOTE | 2019-12-07 01:01 | NUR ---
CONTINUES SLEEPING WITH RESPIRAITONS UNALBORED. NO DISTRESS NOTED.
--- NOTE | 2019-12-07 02:57 | NUR ---
AWAKE NOW AND USED URINAL. HAS PERIODIC COUGH. O2/2.5L ON PER NASAL CANNULA. HOB ELEVATED. NO ACUTE DISTRESS NOTED. CALL LIGHT IN REACH.
--- NOTE | 2019-12-07 05:19 | NUR ---
QUIET HOURS. NO ACUTE CHANGES IN CONDITION. CONTINUES TO COUGH AT INTERVALS. O2/2.5L ON PER NASAL CANNULA. NO DISTRESS NOTED.
[2019-12-07 06:20] LABS: BASOPHILS 0.3 % (0-2); EOSINOPHILS 8.7 % (0-7); HEMATOCRIT 35.7 % (42.0-54.0); HEMOGLOBIN 11.5 g/dL (13.5-17.5); IMMATURE GRANULOCYTES 0.3 % (0-5); LYMPHOCYTES 19.4 % (15-50); MCH 30.1 pg (26.0-34.0); MCHC 32.2 g/dL (31.0-37.0); MCV 93.5 fL (80.0-100.0); MEAN PLATELET VOLUME 10.4 fL (7.4-10.4); MONOCYTES 8.7 % (2-11); NEUTROPHILS 62.6 % (40-80); PLATELET COUNT 407 10x3/uL (130-400); RBC 3.82 10x6/uL (4.20-6.10); RDW 15.7 % (11.5-14.5); WBC 9.8 10x3/uL (4.8-10.8)
[2019-12-07 06:42] LABS: ANION GAP 12.5 mmol/L (8-16); CALCIUM 8.8 mg/dL (8.5-10.1); CARBON DIOXIDE 27.4 mmol/L (21.0-32.0); CREATININE - SERUM 1.4 mg/dL (0.6-1.3); POTASSIUM - SERUM 3.9 mmol/L (3.5-5.1)
--- NOTE | 2019-12-07 08:00 | NUR ---
PT RESTING IN BED WITH EYES OPEN CALL LIGHT IN REACH WILL MONITER
[2019-12-07 08:26] VITALS: BP 142/59
--- NOTE | 2019-12-07 18:18 | NUR ---
PT RESTING IN BED WITH EYES OPEN CALL LIGHT IN REACH WILL MONITER
--- NOTE | 2019-12-07 18:40 | NUR ---
BEDSIDE REPORT COMPLETE. PT LYING IN BED EYES CLOSED RESTING. RR EVEN AND UNLABORED. EASILY AROUSED WITH VERBAL STIMULI. DENIES ANY NEEDS OR PAIN. CONTINUES ON 2.5L VIA NC. CL IN REACH. FALL PRECAUTIONS IN PLACE. WILL CONTINUE TO MONITOR
[2019-12-07 19:00] VITALS: BP 111/48
--- NOTE | 2019-12-08 02:44 | NUR ---
PT LYING IN BED EYES CLOSED RESTING. RR EVEN AND UNLABORED. CL IN REACH
--- NOTE | 2019-12-08 04:56 | NUR ---
PT LYING IN BED EYES CLOSED RESTING. RR EVEN AND UNLABORED. CL IN REACH
[2019-12-08 08:00] VITALS: BP 116/43
--- NOTE | 2019-12-08 08:00 | NUR ---
PT RESTING IN BED WITH EYES OPEN CALL LIGHT IN REACH WILL MONITER
--- NOTE | 2019-12-08 19:02 | NUR ---
PT LYING IN BED SUPINE HOB 30 DEGREES. ALERT AND ORIENTED X4. DENIES ANY PAIN OR NEEDS. CALL LIGHT, WATER, AND URINAL WITHIN REACH. FALL PRECAUTIONS IN PLACE. CONTINUES ON 1.5L VIA NC. WILL CONTINUE TO MONITOR
[2019-12-08 19:30] VITALS: BP 119/49
--- NOTE | 2019-12-08 22:36 | NUR ---
PT LYING IN BED EYES CLOSED RESTING. CONTINUES ON 1L VIA NC. CL WITHIN REACH ON BEDSIDE TABLE. ALARM ON. WILL CONTINUE TO MONITOR
--- NOTE | 2019-12-09 00:06 | NUR ---
PT LYING IN BED EYES CLOSED RESTING COMFORTABLY. RR EVEN AND UNLABORED. CONTINUES ON 1L VIA NC. CALL LIGHT WITHIN REACH. FALL PRECAUTIONS IN PLACE. WILL CONTINUE TO MONITOR
--- NOTE | 2019-12-09 02:15 | NUR ---
PT LYING IN BED EYES CLOSED RESTING. RR EVEN AND UNLABORED. CALL LIGHT WITHIN REACH. FALL PRECAUTIONS IN PLACE.
--- NOTE | 2019-12-09 05:07 | NUR ---
PT LYING IN BED EYES CLOSED RESTING. RR EVEN AND UNLABORED. CALL LIGHT WITHIN REACH. FALL PRECAUTIONS IN PLACE. WILL CONTINUE TO MONITOR
--- NOTE | 2019-12-09 08:08 | NUR ---
PT SITTING UP EATING BREAKFAST, DENIES NEEDS. WCTM.
[2019-12-09 08:52] VITALS: BP 140/55
--- NOTE | 2019-12-09 09:45 | NUR ---
PT SHOWER GIVEN. BED LINENS CHANGED. AM MEDS ADMINISTERED. PT RESTING IN BED, DENIES NEEDS. WCTM.
--- NOTE | 2019-12-09 18:04 | NUR ---
PT RESTING IN BED WATCHING TV, DENIES NEEDS. WCTM.
--- NOTE | 2019-12-09 18:45 | NUR ---
BEDSIDE REPORT COMPLETE. PT SITTING UP IN BED. ALERT AND ORIENTED X4. DENIES ANY NEEDS OR PAIN. CONTINUES ON 1L VIA NC. CALL LIGHT WITHIN REACH. FALL PRECAUTIONS IN PLACE. WILL CONTINUE TO MONITOR
[2019-12-09 20:45] VITALS: BP 114/56
--- NOTE | 2019-12-09 23:10 | NUR ---
PT LYING IN BED EYES CLOSED RESTING COMFORTABLY. CONTINUES ON 1L VIA NC. CALL LIGHT WITHIN REACH. FALL PRECAUTIONS IN PLACE. WILL CONTINUE TO MONITOR
--- NOTE | 2019-12-10 02:39 | NUR ---
PT LYING IN BED EYES CLOSED RESTING COMFORTABLY. CONTINUES ON 1L VIA NC. RR EVEN AND UNLABORED. CALL LIGHT AND WATER WITHIN REACH. FALL PRECAUTIONS IN PLACE. WILL CONTINUE TO MONITOR
[2019-12-10 05:27] LABS: BASOPHILS 0.5 % (0-2); EOSINOPHILS 4.6 % (0-7); HEMOGLOBIN 11.6 g/dL (13.5-17.5); IMMATURE GRANULOCYTES 0.4 % (0-5); LYMPHOCYTES 21.4 % (15-50); MCH 30.2 pg (26.0-34.0); MCHC 32.2 g/dL (31.0-37.0); MCV 93.8 fL (80.0-100.0); MEAN PLATELET VOLUME 10.8 fL (7.4-10.4); MONOCYTES 11.5 % (2-11); NEUTROPHILS 61.6 % (40-80); PLATELET COUNT 341 10x3/uL (130-400); RBC 3.84 10x6/uL (4.20-6.10); WBC 10.2 10x3/uL (4.8-10.8)
[2019-12-10 05:40] LABS: ANION GAP 12.1 mmol/L (8-16); CALCIUM 8.9 mg/dL (8.5-10.1); CARBON DIOXIDE 26.4 mmol/L (21.0-32.0); CREATININE - SERUM 1.4 mg/dL (0.6-1.3); POTASSIUM - SERUM 4.5 mmol/L (3.5-5.1)
--- NOTE | 2019-12-10 05:56 | NUR ---
UNABLE TO OBTAIN DAILY WT THIS AM D/T REHAB SCALE BATTERIES DO NOT HAVE NEW BATTERIES.
[2019-12-10 08:36] VITALS: BP 115/52
--- NOTE | 2019-12-10 08:37 | NUR ---
ALERT ADN ORIENTED. ATE BREAKFAST. NO C/O PAIN.
--- NOTE | 2019-12-10 12:22 | NUR ---
SITTING IN WC FOR LUNCH. NO DISTRESS NOTED. CL IN REACH. PARTICIPATED IN THERAPY THIS AM.
--- NOTE | 2019-12-10 12:33 | NUR ---
SPOKE WITH [facility] VENTURA WITH [facility] AND HE HAS ORDERED PATIENT O2 FOR HOME USE. WILL CONTINUE TO FOLLOW WITH PATIENT.
--- NOTE | 2019-12-10 13:06 | NUR ---
Nutrition Follow-up: Chart reviewed and spoke with CM and SIPHONER. Noted patient is supposed to discharge home tomorrow. Diet: Regular [facility] Soft PO intake: ~38% average x last 7 meals; he reports that he does not have much of an appetite. He denies any needs from dietary at this time. Last BM: 12/06/19 WT: 121# (12/09/19)- standing; Admit WT: 136.8# (12/01/19)- standing Meds noted: lasix, megace, dulcolax. Labs reviewed. Weight loss of -15.8# noted. Noted that patient is on lasix and this may be fluid related loss, however patient with poor PO intake overall during acute rehab stay. He has been denying oral nutrition supplements. Will add Ensure with meals until discharge. Continue appetite stimulant. Encourage PO intake. Recommend continue current diet or per SIPHONER, regular diet is nutritionally appropriate. RD following.
--- NOTE | 2019-12-10 17:47 | NUR ---
NO CHANGE IN ASSESSMENT. DINNER IN ROOM. CL IN REACH.
[2019-12-10 18:45] VITALS: BP 105/51
--- NOTE | 2019-12-10 18:45 | NUR ---
BEDSIDE REPORT COMPLETE. PT SITTING UP IN BED AWAKE AND ALERT. DENIES ANY NEED OR PAIN. CONTINUES ON 1L VIA NC. VS STABLE. SHIFT ASSESSMENT COMPLETE. CALL LIGHT WITHIN REACH. FALL PRECAUTIONS IN PLACE. WILL CONTINUE TO MONITOR
--- NOTE | 2019-12-10 23:32 | NUR ---
PT LYING IN BED EYES CLOSED RESTING COMFORTABLY. RR EVEN AND UNLABORED. CALL LIGHT WITHIN REACH. FALL PRECAUTIONS IN PLACE.
--- NOTE | 2019-12-11 03:21 | NUR ---
PT LYING IN BED EYES CLOSED RESTING COMFORTABLY. NO SIGNS OF ACUTE DISTRESS NOTED. CALL LIGHT WITHIN REACH. FALL PRECAUTIONS IN PLACE. WILL CONTINUE TO MONITOR
--- NOTE | 2019-12-11 06:07 | NUR ---
PT SITTING UP IN BED RECEIVING BREATHING TREATMENT. RR EVEN AND UNLABORED. CALL LIGHT WITHIN REACH. FALL PRECAUTIONS IN PLACE. WILL CONTINUE TO MONITOR
[2019-12-11 07:30] VITALS: BP 121/50
--- NOTE | 2019-12-11 09:19 | NUR ---
PATIENT DISCHARGING HOME TODAY WITH FAMILY. [facility] WILL RESUME HOME THERAPY, THE [facility] HAS DELIVERED O2 FOR PATIENT. DR. JOHN 01/02/2020 @ 10:45. PATIENT CHOICE FORM SIGNED FOR HOME HEALTH NO COMPARE DATA REVIEWED PATIENT IS A WILL USE HIS BENEFITS. HOME COMBINER OPERATOR FROM THE [facility] WILL MAKE FOLLOW UP VISITS TO PATIENT. DISCHARGE INSTRUCTIONS FAXED TO [facility]LE PARTITION ERECTOR, AND REVIEWED WITH PATIENT AND HIS SPOUSE. [facility] FORM SIGNED, EXPLAINED ONE GIVEN TO PATIENT AND ONE FILED IN CHART.
[2019-12-11] MEDS ORDERED: FUROSEMIDE20 MG PO (13:38)
--- NOTE | 2019-12-11 16:09 | NUR ---
PT DISCHARGE INSTRUCTIONS REV'D WITH PT AND PT SPOUSE. PT STATES UNDERSTANDING. PT SPOUSE STATES NO MEDS TO BE CALLED IN. PT DISCHARGING HOME AT THIS TIME WITH PT SPOUSE AND PT SON.
== END 2019-12-11 16:10 | disposition home health service (06) | DRG 303 ==
LOC: D.REHAB 11:57
PROVIDERS: ADMIT Emergency Medicine; ATTEND Emergency Medicine
DX: I25.5 Ischemic cardiomyopathy (principal); J90 Pleural effusion, not elsewhere classified; R47.1 Dysarthria and anarthria; G47.33 Obstructive sleep apnea (adult) (pediatric); J43.9 Emphysema, unspecified; K59.00 Constipation, unspecified; N40.0 Benign prostatic hyperplasia without lower urinary tract symptoms; I25.10 Atherosclerotic heart disease of native coronary artery without angina pectoris; F40.240 Claustrophobia; H54.8 Legal blindness, as defined in USA; I50.9 Heart failure, unspecified; Z95.1 Presence of aortocoronary bypass graft; R53.81 Other malaise; F32.9 Major depressive disorder, single episode, unspecified; R13.10 Dysphagia, unspecified; R06.00 Dyspnea, unspecified; I10 Essential (primary) hypertension; E78.5 Hyperlipidemia, unspecified; R53.1 Weakness

== ENCOUNTER → 2020-01-02 10:29 | Outpatient (CLI) | payer OTHER ==
[2019-12-01 11:33] VITALS: BMI 20.8
[~2020-01-02 10:29] MED LIST changes: +AMIODARONE HCL200 MG PO; +COREG 3.1253.125 MG PO; +FUROSEMIDE20 MG PO; +LASIX40 MG PO
[2020-01-02 11:04] LABS: BASOPHILS 0.3 % (0-2); EOSINOPHILS 3.2 % (0-7); HEMATOCRIT 39.3 % (42.0-54.0); HEMOGLOBIN 12.3 g/dL (13.5-17.5); IMMATURE GRANULOCYTES 0.1 % (0-5); LYMPHOCYTES 21.6 % (15-50); MCH 29.8 pg (26.0-34.0); MCHC 31.3 g/dL (31.0-37.0); MCV 95.2 fL (80.0-100.0); MONOCYTES 8.1 % (2-11); NEUTROPHILS 66.7 % (40-80); PLATELET COUNT 346 10x3/uL (130-400); RBC 4.13 10x6/uL (4.20-6.10); RDW 15.9 % (11.5-14.5); WBC 7.7 10x3/uL (4.8-10.8)
[2020-01-02 11:28] LABS: ALBUMIN 3.3 g/dL (3.4-5.0); ANION GAP 13.2 mmol/L (8-16); BILIRUBIN - TOTAL 0.34 mg/dL (0.2-1.3); CALCIUM 8.8 mg/dL (8.5-10.1); CARBON DIOXIDE 27.8 mmol/L (21.0-32.0); CREATININE - SERUM 1.4 mg/dL (0.6-1.3); PROTEIN - SERUM 7.5 g/dL (6.4-8.2)
== END | disposition home or self-care (01) ==
LOC: D.RAD 10:29
PROVIDERS: ATTEND Thoracic Surgery (Cardiothoracic Vascular Surgery)
DX: I25.10 Atherosclerotic heart disease of native coronary artery without angina pectoris (principal)

== ENCOUNTER → 2020-01-29 09:06 | Outpatient (CLI) | payer OTHER ==
[2019-12-01 11:33] VITALS: BMI 20.8
== END | disposition home or self-care (01) ==
LOC: D.ECHO 09:00
PROVIDERS: ATTEND Orthopaedic Surgery
DX: I25.10 Atherosclerotic heart disease of native coronary artery without angina pectoris (principal)

== ENCOUNTER 2021-01-01 16:48 | Inpatient (IN) | payer OTHER ==
[~2021-01-01] VITALS: Ht 172.7 cm; Wt 54.9 kg
[~2021-01-01 16:48] MED LIST changes: +KLOR-CON 1010 MEQ PO; -KLOR-CON M2020 MEQ PO
[2021-01-01 17:38] LABS: BASOPHILS 0.3 % (0-2); EOSINOPHILS 4.6 % (0-7); HEMATOCRIT 37.8 % (42.0-54.0); IMMATURE GRANULOCYTES 0.1 % (0-5); LYMPHOCYTE ABS# 1.41 10x3/uL (1.32-3.57); LYMPHOCYTES 20.2 % (15-50); MCH 30.5 pg (26.0-34.0); MCHC 31.7 g/dL (31.0-37.0); MCV 96.2 fL (80.0-100.0); MEAN PLATELET VOLUME 11.6 fL (7.4-10.4); MONOCYTES 10.9 % (2-11); NEUTROPHIL ABS# 4.45 10x3/uL (1.78-5.38); NEUTROPHILS 63.9 % (40-80); PLATELET COUNT 147 10x3/uL (130-400); RBC 3.93 10x6/uL (4.20-6.10); RDW 15.3 % (11.5-14.5)
[2021-01-01 17:50] LABS: APTT 26.4 SECONDS (22.8-39.4); INR 1.07 (0.85-1.17); PROTIME 12.9 SECONDS (11.6-15.0)
[2021-01-01 17:51] LABS: CALC OSMOLALITY 278 mosm/kg (275-300); CALCIUM 9.5 mg/dL (8.5-10.1); CARBON DIOXIDE 27.1 mmol/L (21.0-32.0); CHLORIDE - SERUM 102 mmol/L (98-107); CREATININE - SERUM 1.2 mg/dL (0.6-1.3); GLUCOSE 100 mg/dL (74-106); POTASSIUM - SERUM 3.5 mmol/L (3.5-5.1); SODIUM 138 mmol/L (136-145); UREA NITROGEN 21 mg/dL (7-18); eGFR NON AFRICAN AMERICAN 61 mL/min (90-120)
[2021-01-01 17:59] LABS: D-DIMER-QUANTITATIVE 4.84 ug/mLFEU (0.20-0.54)
[2021-01-01 18:13] LABS: ALBUMIN 2.8 g/dL (3.4-5.0); ALKALINE PHOSPHATASE 107 U/L (30-120); ALT (SGPT) 20 U/L (10-68); BILIRUBIN - TOTAL 0.44 mg/dL (0.2-1.3); CKMB 1.2 U/L (0.0-3.6); CREATINE KINASE 24 UL (21-232); PROTEIN - SERUM 7.5 g/dL (6.4-8.2)
[2021-01-01 18:16] LABS: TROPONIN-I 0.074 ng/mL (0.000-0.060)
[2021-01-01] MEDS ORDERED: MELATONIN 3 MG1 TAB PO (20:20)
[2021-01-01 21:47] VITALS: BP 125/54
[2021-01-02 00:35] VITALS: BP 122/48
[2021-01-02 01:37] VITALS: BMI 18.4
[2021-01-02 04:04] VITALS: BP 136/61
--- NOTE | 2021-01-02 06:15 | NUR ---
resting quietly in bed. moist cough noted. denies any pain.
[2021-01-02 07:27] LABS: BASOPHILS 0.1 % (0-2); EOSINOPHILS 7.1 % (0-7); HEMATOCRIT 34.3 % (42.0-54.0); HEMOGLOBIN 10.8 g/dL (13.5-17.5); IMMATURE GRANULOCYTES 0.3 % (0-5); LYMPHOCYTE ABS# 2.03 10x3/uL (1.32-3.57); LYMPHOCYTES 29.9 % (15-50); MCH 30.3 pg (26.0-34.0); MCHC 31.5 g/dL (31.0-37.0); MCV 96.1 fL (80.0-100.0); MEAN PLATELET VOLUME 11.7 fL (7.4-10.4); MONOCYTES 10.9 % (2-11); NEUTROPHILS 51.7 % (40-80); PLATELET COUNT 148 10x3/uL (130-400); RBC 3.57 10x6/uL (4.20-6.10); RDW 15.3 % (11.5-14.5); WBC 6.8 10x3/uL (4.8-10.8)
[2021-01-02 08:19] LABS: ALBUMIN 2.5 g/dL (3.4-5.0); ALKALINE PHOSPHATASE 95 U/L (30-120); ALT (SGPT) 17 U/L (10-68); BILIRUBIN - TOTAL 0.28 mg/dL (0.2-1.3); CALC OSMOLALITY 284 mosm/kg (275-300); CALCIUM 8.5 mg/dL (8.5-10.1); CARBON DIOXIDE 24.5 mmol/L (21.0-32.0); CHLORIDE - SERUM 107 mmol/L (98-107); CREATINE KINASE 16 UL (21-232); GLUCOSE 83 mg/dL (74-106); POTASSIUM - SERUM 3.4 mmol/L (3.5-5.1); PROTEIN - SERUM 5.9 g/dL (6.4-8.2); SODIUM 142 mmol/L (136-145); UREA NITROGEN 22 mg/dL (7-18); eGFR NON AFRICAN AMERICAN 75 mL/min (90-120)
[2021-01-02 08:25] LABS: TROPONIN-I 0.071 ng/mL (0.000-0.060)
[2021-01-02 09:06] VITALS: BP 151/74
--- NOTE | 2021-01-02 13:20 | NUR ---
ASSUMED CARE FROM PRIMARY CARE NURSE. 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 RIGHT FA SEEN WITH NS INFUSING AT 75 CC/HR. ON HEART MONITOR SHOWING SR W BBB. PATIENT WAS ON ROOM AIR WHEN I WALKED IN, STATES HE FEEL ASLEEP PAST EATING LUNCH, SAT WAS 90%. PLACED ON 2L AND O2 SAT IS NOW 94%. DENIES NEEDS AT THIS TIME. CALL LIGHT IS AT LEFT SIDE IN REACH AND PATIENT STATES HE CAN SEE IT.
--- NOTE | 2021-01-02 17:14 | EC ---
PATIENT:LENY TORRES DATE OF SERVICE: 01/01/21 SEX: M MEDICAL RECORD: [id number] DATE OF : 35 LOCATION:D.M2 D.213 AGE OF PATIENT: 85 ADMISSION DATE: 01/01/21 REFERRING PHYSICIAN: INTERPRETING PHYSICIAN: DANISHA LORENZO MD ECHOCARDIOGRAM REPORT ECHO CHARGES 4 ECHO COMPLETE Date: 01/02/21 CLINICAL DIAGNOSIS: TYPE 2 [place] ECHOCARDIOGRAPHIC MEASUREMENTS (adult normal given) AC root (d.<3.7cm) 3.2 cm LV Septum d (<1.2 cm> 0.8 cm Valve Excursion 1.5 cm LV Septum (systole) 1.0 cm Left Atria (s.<4.0cm> 3.8 cm LVPW d(<1.2cm) 0.9 cm RV (d.<2.3cm) 2.4 cm LVPW (sytole) 1.0 cm LV diastole(<5.6CM) 7.1 cm MV E-F(>70mm/sec) cm LV systole 5.9 cm LVOT Diameter 1.8 cm MV exc.(>10mm) 1.4 cm Est.ejection fraction (50-75%) % DOPPLER: LVIT cm/sec A 114 cm/sec E 84 cm/sec LA cm/sec RVSP 25 mmHg LVOT 98 cm/sec AOP1/2T m/s Asc. Ao 140 cm/sec RVOT 54 cm/sec RA cm/sec PA 60 cm/sec AV Gradient Peak 7.8 mmHg AV Mean 3.9 mmHg AV Area 1.8 cm MV Gradient Peak 6.8 mmHg MV Mean 3.3 mmHg MV Area cm COMMENTS: Quality Control Coordinator: Jona CORREA Tile Decorator: 3 Dr. Bowers TAPE# Pericardial Effusion N DATE OF SERVICE: Adequate 2D, color-flow imaging, spectral Doppler, and M-Mode No LVH. LV internal dimension is mildly dilated. LV is mildly globally hypokinetic with reduced EF. Estimated EF 40% to 45%. Aortic valve is sclerosed without evidence of stenosis by Doppler interrogation. Left atrium is normal at 3.8 cm. Mitral valve shows no prolapse. Trace MR. Right side is grossly normal. Mild TR. ECHOCARDIOGRAM REPORT [id number] LENY TORRES TRANSINT:[id number] Voice Confirmation ID: [id number] DOCUMENT ID: [id number] DANISHA LORENZO MD at 1714 CC: [id number] DICTATION DATE: 01/02/21 1226 AIRLINE CUSTOMER SERVICE AGENT: 01/02/21 1333 ADM IN [place] [id number] [place] [id number]
--- NOTE | 2021-01-02 17:14 | CN ---
PATIENT NAME:LENY TORRES MEDICAL RECORD: [id number] : 35 LOCATION:D. D.2139 ADMIT DATE: 01/01/21 ACCOUNT: [id number] CONSULTING PHYSICIAN: DANISHA LORENZO MD REFERRING PHYSICIAN: TINO WILSON MD DATE OF CONSULTATION: 01/02/2021 HISTORY OF PRESENT ILLNESS: An 85-year-old gentleman with known history of coronary artery disease status post coronary artery bypass grafting approximately 1 year ago, admitted with onset of hemoptysis, fever, chills, shortness of breath, found to have pneumonitis, found to have elevated troponin as well consistent with type 2 myocardial infarction. We are asked to see him concerning his cardiovascular status. PAST MEDICAL HISTORY: Includes; 1. History of hypertension. 2. Hyperlipidemia. 3. Coronary artery disease as described above. ALLERGIES: PENICILLIN, SULFA, LISINOPRIL, MORPHINE, SHELLFISH. MEDICATIONS: Include albuterol 2 puffs every 4 hours, Plavix 75 every day, amiodarone 200 p.o. every day, carvedilol 3.125 every day, atorvastatin 10 every day, aspirin 81 every day, Lasix 20 every day. SOCIAL HISTORY: Quit smoking several years back. Typically takes care of all his ADLs, nondrinker. REVIEW OF SYSTEMS: The patient reports easy bruising but reports no swollen glands. The patient reports no fever, no night sweats, no significant weight gain, no significant weight loss. No significant exercise tolerance. The patient reports no dry eyes, no irritation, no vision change. Patient reports no difficulty hearing and no ear pain. Patient reports no frequent nose bleeds or nose and sinus problems. Patient reports on arm pain on exertion. No shortness of breath while lying down. No history of heart murmur. Patient reports no cough, no wheezing or coughing up blood. Patient reports no abdominal pain, no vomiting. Normal appetite. No diarrhea and not vomiting blood. No nausea and no constipation. Patient reports no incontinence. No difficulty urinating. No hematuria. No increased frequency. Patient reports no muscle aches. No weakness, no arthralgias, no back pain. No swelling of the extremities. Patient reports no abnormal mole, no jaundice, no rashes. Reports no loss of consciousness. No weakness and no numbness. No seizures, dizziness, or headaches. The patient reports no depression, no sleep disturbance, feeling safe in a relationship and no alcohol abuse. Patient reports on fatigue. Reports no runny nose or sinus pressure. No itching, no hives, and no frequent sneezing. PHYSICAL EXAMINATION: GENERAL: Pleasant. No acute distress, appears stated age. HEENT: Normocephalic, atraumatic. NECK: No bruits noted. HEART: Regular. A II/ systolic ejection murmur. LUNGS: Good air excursion. ABDOMEN: Soft and nontender. EXTREMITIES: Pulses 2+. No edema. CONSULT REPORT [id number] LENY TORRES IMPRESSION AND PLAN: Suspect a type 2 myocardial infarction with underlying pneumonitis. No anginal symptomology. No acute EKG changes. We will check echocardiographic study to assess left ventricular function, treat underlying pneumonitis as you are doing. Certainly given his history of atrial fibrillation and increased catecholamine drive, etc. would not be surprised to see atrial fibrillation at some point in time. We will continue amiodarone at his current dose. TRANSINT:[id number] Voice Confirmation ID: [id number] DOCUMENT ID: [id number] DANISHA LORENZO MD at 1714 CC: [id number] DICTATION DATE: 01/02/21931 COMMERCIAL REAL ESTATE BROKER: 01/02/21 1157 ADM IN [place] [id number] [place] [address]
[2021-01-02 20:09] VITALS: BP 128/67
--- NOTE | 2021-01-03 00:41 | NUR ---
RESTING QUIETLY IN BED. PLEASANT & COOPERATIVE. DENIES ANY C/O AT PRESENT ATTEMPTED TO CONTACT TO GET UPDATED MEDICATION LIST
[2021-01-03 01:28] VITALS: BP 113/58
[2021-01-03 05:00] LABS: BASOPHILS 0.2 % (0-2); EOSINOPHILS 0 % (0-7); HEMATOCRIT 32.2 % (42.0-54.0); HEMOGLOBIN 10.1 g/dL (13.5-17.5); IMMATURE GRANULOCYTES 0.4 % (0-5); LYMPHOCYTE ABS# 0.85 10x3/uL (1.32-3.57); LYMPHOCYTES 18.3 % (15-50); MCH 29.9 pg (26.0-34.0); MCHC 31.4 g/dL (31.0-37.0); MCV 95.3 fL (80.0-100.0); MEAN PLATELET VOLUME 11.5 fL (7.4-10.4); MONOCYTES 6.9 % (2-11); NEUTROPHIL ABS# 3.45 10x3/uL (1.78-5.38); NEUTROPHILS 74.2 % (40-80); PLATELET COUNT 137 10x3/uL (130-400); RBC 3.38 10x6/uL (4.20-6.10); RDW 15.2 % (11.5-14.5)
[2021-01-03 05:07] LABS: WBC 4.7 10x3/uL (4.8-10.8)
[2021-01-03 05:21] LABS: ALBUMIN 2.3 g/dL (3.4-5.0); ALKALINE PHOSPHATASE 103 U/L (30-120); ALT (SGPT) 11 U/L (10-68); BILIRUBIN - TOTAL 0.23 mg/dL (0.2-1.3); CALC OSMOLALITY 281 mosm/kg (275-300); CALCIUM 8.6 mg/dL (8.5-10.1); CARBON DIOXIDE 26.2 mmol/L (21.0-32.0); CHLORIDE - SERUM 107 mmol/L (98-107); CREATININE - SERUM 0.8 mg/dL (0.6-1.3); GLUCOSE 154 mg/dL (74-106); MAGNESIUM - SERUM 1.9 mg/dL (1.8-2.4); POTASSIUM - SERUM 3.5 mmol/L (3.5-5.1); PROTEIN - SERUM 6.1 g/dL (6.4-8.2); SODIUM 139 mmol/L (136-145); UREA NITROGEN 15 mg/dL (7-18); eGFR NON AFRICAN AMERICAN > 90 mL/min (90-120)
[2021-01-03 05:29] VITALS: BP 102/55
--- NOTE | 2021-01-03 07:00 | NUR ---
RECIEVED REPORT. ASSUMED CARE OF PATIENT. WHITE BOARD UPDATED, BEDSIDE SHIFT REPORT COMPLETE. PATIENT RESTING WITH EYES CLOSED. RESP EVEN AND UNLABORED. PATIENT IS BLIND, ONLY ABLE TO SEE SHADOWS/BRIGHT LIGHTS. CALL LIGHT WITHIN REACH. NO DISTRESS.
[2021-01-03 08:00] VITALS: BP 134/71
--- NOTE | 2021-01-03 09:54 | NUR ---
20 GAUGE IV REMOVED FROM RIGHT FOREARM DUE TO INFILTRATION. CATHETER TIP INTACT. NO BLEEDING FROM SITE. 2X2 GAUZE APPLIED AND SECURED WITH TAPE. 20 GAUGE IV PLACED TO LEFT FOREARM X 1 STICK. GOOD BLOOD RETURN, EASY FLUSH. TOLERATED IV PLACEMENT WELL. TAPED, DATED AND SECURED. IV FLUIDS INFUSING ORDERED AT THIS TIME.
[2021-01-03 11:00] VITALS: BP 126/60
--- NOTE | 2021-01-03 12:00 | NUR ---
RESTING WELL. NO DISTRESS. CALL LIGHT WITHIN REACH.
[2021-01-03 15:00] VITALS: BP 138/66
--- NOTE | 2021-01-03 15:30 | NUR ---
PATIENT HERE FOR VISIT. PATIENT DENIES ANY NEEDS. NO DISTRESS.
--- NOTE | 2021-01-03 17:00 | NUR ---
DIETARY MESSAGE SENT FOR PM SNACK.
[2021-01-03 19:58] VITALS: BP 118/65
[2021-01-03] MEDS ORDERED: FUROSEMIDE20 MG PO (20:54)
--- NOTE | 2021-01-04 00:32 | NUR ---
SPOKE WITH JOSHUA (PT ) TO GET UPDATED MEDICATION LIST. UPDATED LIST. PT WAS GIVEN A SNACK AT BEDTIME. GETS UP AD JF IN ROOM. DENIES ANY PAIN STATES THAT HE FEELS MUCH BETTER TODAY.
[2021-01-04 00:55] VITALS: BP 121/77
[2021-01-04 04:42] LABS: BASOPHILS 0.2 % (0-2); EOSINOPHILS 0 % (0-7); HEMATOCRIT 31.8 % (42.0-54.0); HEMOGLOBIN 10.1 g/dL (13.5-17.5); IMMATURE GRANULOCYTES 0.7 % (0-5); LYMPHOCYTE ABS# 1.01 10x3/uL (1.32-3.57); LYMPHOCYTES 11.9 % (15-50); MCH 30.1 pg (26.0-34.0); MCHC 31.8 g/dL (31.0-37.0); MCV 94.6 fL (80.0-100.0); MEAN PLATELET VOLUME 10.9 fL (7.4-10.4); MONOCYTES 9.4 % (2-11); NEUTROPHIL ABS# 6.59 10x3/uL (1.78-5.38); NEUTROPHILS 77.8 % (40-80); PLATELET COUNT 164 10x3/uL (130-400); RBC 3.36 10x6/uL (4.20-6.10); RDW 14.9 % (11.5-14.5)
[2021-01-04 04:48] LABS: WBC 8.5 10x3/uL (4.8-10.8)
[2021-01-04 05:04] LABS: ALBUMIN 2.5 g/dL (3.4-5.0); ALKALINE PHOSPHATASE 109 U/L (30-120); BILIRUBIN - TOTAL 0.38 mg/dL (0.2-1.3); CARBON DIOXIDE 24.7 mmol/L (21.0-32.0); CHLORIDE - SERUM 109 mmol/L (98-107); CREATININE - SERUM 0.9 mg/dL (0.6-1.3); MAGNESIUM - SERUM 1.8 mg/dL (1.8-2.4); POTASSIUM - SERUM 3.5 mmol/L (3.5-5.1); PROTEIN - SERUM 6.4 g/dL (6.4-8.2); SODIUM 141 mmol/L (136-145); UREA NITROGEN 17 mg/dL (7-18); eGFR NON AFRICAN AMERICAN 85 mL/min (90-120)
[2021-01-04 05:07] LABS: ALT (SGPT) 14 U/L (10-68); CALC OSMOLALITY 282 mosm/kg (275-300); GLUCOSE 105 mg/dL (74-106)
[2021-01-04 06:14] VITALS: BP 121/70
--- NOTE | 2021-01-04 06:26 | NUR ---
PLEASANT NO C/O VOICED SLEPT WELL LAST NOC
--- NOTE | 2021-01-04 07:00 | NUR ---
RECEIVED REPORT. ASSUMED CARE OF PATIENT. CALL LIGHT WITHIN REACH. PATIENT WITH EYES OPEN, SITTING UP IN BED. RESP EVEN AND UNLABORED. WHITE BOARD UPDATED, BEDSIDE SHIFT REPORT COMPLETED. NO DISTRESS. DENIES ANY NEEDS.
[2021-01-04 08:07] VITALS: BP 129/81
--- NOTE | 2021-01-04 10:03 | NUR ---
WAITING ON FLONASE FROM PHARMACY.
--- NOTE | 2021-01-04 12:00 | NUR ---
RESTING IN BED, NO DISTRESS. CALL LIGHT WITHIN REACH. DENIES NEEDS.
--- NOTE | 2021-01-04 16:00 | NUR ---
PATIENT AT BEDSIDE. DENIES NEEDS. NO DISTRESS.
[2021-01-04 17:15] VITALS: BP 139/79
[2021-01-04 22:06] VITALS: BP 121/62
--- NOTE | 2021-01-04 23:26 | NUR ---
PT AAO X 4. PT SITTING UP IN BED AND APPEARS COMFORTABLE. PT REQUESTED HIS OXYGEN BE INCREASED TO 3L. IV INTACT, VITALS WNL. PT URINAL EMPTIED WITH 600ML UOP. ALL PERSONAL ITEMS AND CALL LIGHT WITHIN REACH. PT WAS ABLE TO SWALLOW PILLS WITH NO DIFFICULTY. PT DENIES PAIN.
[2021-01-05 05:28] VITALS: BP 131/74
[2021-01-05 06:02] LABS: BASOPHILS 0.1 % (0-2); EOSINOPHILS 0.3 % (0-7); HEMATOCRIT 31.7 % (42.0-54.0); HEMOGLOBIN 9.8 g/dL (13.5-17.5); IMMATURE GRANULOCYTES 0.3 % (0-5); LYMPHOCYTE ABS# 1.77 10x3/uL (1.32-3.57); LYMPHOCYTES 14.9 % (15-50); MCH 29.6 pg (26.0-34.0); MCHC 30.9 g/dL (31.0-37.0); MCV 95.8 fL (80.0-100.0); MEAN PLATELET VOLUME 10.4 fL (7.4-10.4); MONOCYTES 9.5 % (2-11); NEUTROPHIL ABS# 8.88 10x3/uL (1.78-5.38); NEUTROPHILS 74.9 % (40-80); PLATELET COUNT 192 10x3/uL (130-400); RBC 3.31 10x6/uL (4.20-6.10); RDW 15.2 % (11.5-14.5)
[2021-01-05 06:33] LABS: ALBUMIN 2.2 g/dL (3.4-5.0); ANION GAP 9.4 mmol/L (8-16); BILIRUBIN - TOTAL 0.43 mg/dL (0.2-1.3); CALCIUM 8.7 mg/dL (8.5-10.1); CARBON DIOXIDE 25.5 mmol/L (21.0-32.0); CREATININE - SERUM 1.1 mg/dL (0.6-1.3); MAGNESIUM - SERUM 1.8 mg/dL (1.8-2.4); POTASSIUM - SERUM 3.9 mmol/L (3.5-5.1); PROTEIN - SERUM 5.8 g/dL (6.4-8.2)
--- NOTE | 2021-01-05 07:04 | NUR ---
RECEIVED REPORT. ASSUMED CARE OF PATIENT. CALL LIGHT WITHIN REACH. PATIENT RESTING IN BED WITH EYES CLOSED, RESP EVEN AND UNLABORED ON 4L/MIN VIA NC. WHITE BOARD UPDATED, BEDSIDE SHIFT REPORT COMPLETE. NO DISTRESS.
[2021-01-05 07:19] LABS: WBC 11.9 10x3/uL (4.8-10.8)
[2021-01-05 08:00] VITALS: BP 119/63
[2021-01-05 12:00] VITALS: BP 122/69
--- NOTE | 2021-01-05 12:00 | NUR ---
FLUTTER VALVE PROVIDED TO PATIENT. NO DISTRESS. VERBALIZED UNDERSTANDING OF DIRECTIONS PROVIDED, RETURN DEMONSTRATION FROM PATIENT VISULIZED.
--- NOTE | 2021-01-05 14:00 | NUR ---
20 GAUGE IV PLACED TO RIGHT FOREARM X 1 STICK BY CHARGE NURSE CELINE RODRIGUEZ. DATED, DATED AND SECURED. PT TOLERATED IV PLACEMENT WELL. IV FLUIDS INFUSING ORDERD. NO DISTRESS.
[2021-01-05 14:01] VITALS: Ht 172.7 cm; Wt 54.9 kg
[2021-01-05 15:00] VITALS: BP 126/61
[2021-01-05 20:00] VITALS: BP 125/70
[2021-01-06 04:00] VITALS: BP 131/69
--- NOTE | 2021-01-06 04:00 | NUR ---
PT RESTING COMFORTABLY IN BED. VSS. RR E/U. NO S/S OF DISTRESS. FALL PRECAUTIONS IN PLACE WILL CONTINUE TO MONITOR.
--- NOTE | 2021-01-06 05:09 | NUR ---
I have reviewed this patient and I concur with the Shift Assessment completed by the Licensed Practical Nurse today this shift.
[2021-01-06 05:57] LABS: BASOPHILS 0.1 % (0-2); EOSINOPHILS 1.7 % (0-7); HEMOGLOBIN 10.1 g/dL (13.5-17.5); IMMATURE GRANULOCYTES 0.4 % (0-5); LYMPHOCYTES 21.5 % (15-50); MCH 30.1 pg (26.0-34.0); MCHC 31.6 g/dL (31.0-37.0); MCV 95.5 fL (80.0-100.0); MONOCYTES 12.8 % (2-11); NEUTROPHIL ABS# 4.72 10x3/uL (1.78-5.38); NEUTROPHILS 63.5 % (40-80); RBC 3.35 10x6/uL (4.20-6.10); RDW 15.4 % (11.5-14.5)
[2021-01-06 06:00] LABS: PLATELET COUNT 233 10x3/uL (130-400); WBC 7.4 10x3/uL (4.8-10.8)
[2021-01-06 06:18] LABS: ALBUMIN 2.3 g/dL (3.4-5.0); ANION GAP 11.4 mmol/L (8-16); BILIRUBIN - TOTAL 0.45 mg/dL (0.2-1.3); CALCIUM 8.3 mg/dL (8.5-10.1); CARBON DIOXIDE 26.9 mmol/L (21.0-32.0); CREATININE - SERUM 1.1 mg/dL (0.6-1.3); MAGNESIUM - SERUM 1.6 mg/dL (1.8-2.4); PROTEIN - SERUM 5.8 g/dL (6.4-8.2)
[2021-01-06 06:23] LABS: POTASSIUM - SERUM 3.3 mmol/L (3.5-5.1)
--- NOTE | 2021-01-06 06:27 | NUR ---
SPOKE WITH PAPI SANDERSON ABOUT PT'S MEDICATION. PT STATES HE DOESN'T TAKE AMIODARONE ANYMORE IT BECAME TOXIC AND CAUSED HIS BLINDNESS. HE STATES HE NO LONGER TAKES THE 10MG LASIX. KIN ASK THAT I HOLD MED AND INFORM NEXT NURSE.
[2021-01-06 08:57] VITALS: BP 131/68
[2021-01-06 12:38] VITALS: BP 120/64
[2021-01-06 15:42] VITALS: BP 126/59
[2021-01-06 20:00] VITALS: BP 128/73
[2021-01-07 04:00] VITALS: BP 133/68
[2021-01-07 05:04] LABS: BASOPHILS 0.3 % (0-2); EOSINOPHILS 3.3 % (0-7); HEMATOCRIT 33.6 % (42.0-54.0); HEMOGLOBIN 10.6 g/dL (13.5-17.5); IMMATURE GRANULOCYTES 0.4 % (0-5); LYMPHOCYTE ABS# 1.38 10x3/uL (1.32-3.57); LYMPHOCYTES 17.6 % (15-50); MCH 30.3 pg (26.0-34.0); MCHC 31.5 g/dL (31.0-37.0); MEAN PLATELET VOLUME 10.3 fL (7.4-10.4); MONOCYTES 9.4 % (2-11); NEUTROPHIL ABS# 5.43 10x3/uL (1.78-5.38); PLATELET COUNT 266 10x3/uL (130-400); RDW 15.3 % (11.5-14.5); WBC 7.9 10x3/uL (4.8-10.8)
[2021-01-07 05:26] LABS: ALBUMIN 2.4 g/dL (3.4-5.0); BILIRUBIN - TOTAL 0.58 mg/dL (0.2-1.3); CALCIUM 8.6 mg/dL (8.5-10.1); CARBON DIOXIDE 24.2 mmol/L (21.0-32.0); CREATININE - SERUM 1.1 mg/dL (0.6-1.3); MAGNESIUM - SERUM 1.6 mg/dL (1.8-2.4); PROTEIN - SERUM 6.4 g/dL (6.4-8.2)
[2021-01-07 05:37] LABS: ANION GAP 12.9 mmol/L (8-16); POTASSIUM - SERUM 4.1 mmol/L (3.5-5.1)
--- NOTE | 2021-01-07 07:00 | NUR ---
PT LYING IN BED. RESP EVEN AND UNLABORED. AAOX4. O2 @ 7 LPM. PT DENIES NEEDS AT THIS. CLIR. BED IN LOWEST POSITION. SIDERAILS X2
[2021-01-07 08:00] VITALS: BP 136/65
--- NOTE | 2021-01-07 08:57 | NUR ---
CLEAR RESP SPUTUM CULTURE COLLECTED AND SENT TO LAB.
[2021-01-07 11:00] VITALS: BP 131/66
--- NOTE | 2021-01-07 13:33 | NUR ---
Nutrition Follow-up: Pt reports poor appetite/PO intake over the past 3 days. Denies N/V. Reports last BM was ~2 days ago. Declines nutrition supplements. ST eval pending. Diet: Cardiac, sandwich as HS snack No new wt; last wt: 121# (01/05) Labs noted: Mg 1.6, Alb 2.4 Meds noted: Micro K, Florajen, Protonix, NS @ 75, electrolyte protocol -Encourage PO intake and honor food preferences within diet restrictions. -Need new wt. -RD follow-up: 01/09
[2021-01-07 15:00] VITALS: BP 130/69
--- NOTE | 2021-01-07 15:01 | NUR ---
O2 AT 7, PATIENT ABLE TO GET UP TO BEDSIDE AND STAND BY HIMSELF. PATIENT ABLE TO WALK AROUND ROOM WITH SBA TO INDEPENDENTLY 25 FEET.
[2021-01-07 20:14] VITALS: BP 128/52
--- NOTE | 2021-01-07 20:45 | NUR ---
CAPSULE MAKER REPORTS PT O2 SAT 70-80S ON 7 L INCREASED 15 L NC AND IMMEDIATELY IMPROVED TO 94-95%
--- NOTE | 2021-01-07 21:00 | NUR ---
PT REPORTS SOB, CONTINUES ON 15 L NC O2 SAT 86%, CALLED RT, PT EDUCATED ON COUGH DEEP BREATHING, FLUTTER VALVE DONE PER RT. O2 SAT IMPROVED TO 94-100% ON 15 L NC HF. PT REPORTS FEELING IMPROVED. NO DISTRESS NOTED WILL CONTNUE TO MONITOR
[2021-01-07 23:41] VITALS: BP 144/70
--- NOTE | 2021-01-08 03:35 | NUR ---
pt appears asleep resting quietly, O2 sat 99-100% with O2 at 15 L HF, NC only half in nares, turned O2 down to 13L will continue to monitor, spoke to RT
[2021-01-08 03:43] VITALS: BP 120/59
[2021-01-08 07:06] LABS: BASOPHILS 0.1 % (0-2); EOSINOPHILS 0.1 % (0-7); HEMATOCRIT 34.8 % (42.0-54.0); HEMOGLOBIN 10.9 g/dL (13.5-17.5); IMMATURE GRANULOCYTES 0.4 % (0-5); LYMPHOCYTE ABS# 0.58 10x3/uL (1.32-3.57); LYMPHOCYTES 6.2 % (15-50); MCH 30.1 pg (26.0-34.0); MCHC 31.3 g/dL (31.0-37.0); MCV 96.1 fL (80.0-100.0); MEAN PLATELET VOLUME 10.6 fL (7.4-10.4); MONOCYTES 0.9 % (2-11); NEUTROPHIL ABS# 8.59 10x3/uL (1.78-5.38); NEUTROPHILS 92.3 % (40-80); RBC 3.62 10x6/uL (4.20-6.10); RDW 15.1 % (11.5-14.5); WBC 9.3 10x3/uL (4.8-10.8)
[2021-01-08 07:23] LABS: PLATELET COUNT 328 10x3/uL (130-400)
[2021-01-08 07:40] LABS: ALBUMIN 2.4 g/dL (3.4-5.0); ALKALINE PHOSPHATASE 96 U/L (30-120); ALT (SGPT) 15 U/L (10-68); BILIRUBIN - TOTAL 0.54 mg/dL (0.2-1.3); CALC OSMOLALITY 281 mosm/kg (275-300); CALCIUM 8.2 mg/dL (8.5-10.1); CARBON DIOXIDE 24.8 mmol/L (21.0-32.0); CHLORIDE - SERUM 104 mmol/L (98-107); GLUCOSE 108 mg/dL (74-106); MAGNESIUM - SERUM 1.9 mg/dL (1.8-2.4); PHOSPHOROUS 3.1 mg/dL (2.5-4.9); POTASSIUM - SERUM 4.2 mmol/L (3.5-5.1); PRO BNP 16086 pg/mL (0-450); PROTEIN - SERUM 5.9 g/dL (6.4-8.2); SODIUM 140 mmol/L (136-145); UREA NITROGEN 18 mg/dL (7-18); eGFR NON AFRICAN AMERICAN 75 mL/min (90-120)
[2021-01-08 08:05] LABS: ERYTHROCYTE SEDIMENTATION RATE 60 mm/hr (0-30)
[2021-01-08 09:36] VITALS: BP 114/50
--- NOTE | 2021-01-08 14:27 | NUR ---
HOLD PER NSG DUE TO 02
[2021-01-08 17:35] VITALS: BP 133/56
[2021-01-08 20:55] VITALS: BP 118/52
--- NOTE | 2021-01-09 02:15 | NUR ---
new PIV started to right forarm, 20 gauge x 2 sticks pt tolerated well, pressure dressing placed to left forearma t old PIV site. pt denies any issues, will conttinue to monitor
[2021-01-09 03:50] VITALS: BP 112/49
[2021-01-09 06:19] LABS: ALBUMIN 2.3 g/dL (3.4-5.0); ANION GAP 10.2 mmol/L (8-16); BILIRUBIN - TOTAL 0.35 mg/dL (0.2-1.3); CALCIUM 8.7 mg/dL (8.5-10.1); CARBON DIOXIDE 28.4 mmol/L (21.0-32.0); CREATININE - SERUM 1.1 mg/dL (0.6-1.3); POTASSIUM - SERUM 3.6 mmol/L (3.5-5.1); PROTEIN - SERUM 6.2 g/dL (6.4-8.2)
[2021-01-09 06:26] LABS: BASOPHILS 0.1 % (0-2); EOSINOPHILS 0 % (0-7); HEMATOCRIT 32.9 % (42.0-54.0); HEMOGLOBIN 10.3 g/dL (13.5-17.5); IMMATURE GRANULOCYTES 0.4 % (0-5); LYMPHOCYTE ABS# 0.66 10x3/uL (1.32-3.57); LYMPHOCYTES 4.2 % (15-50); MCH 29.4 pg (26.0-34.0); MCHC 31.3 g/dL (31.0-37.0); MEAN PLATELET VOLUME 10.4 fL (7.4-10.4); MONOCYTES 2.9 % (2-11); NEUTROPHIL ABS# 14.64 10x3/uL (1.78-5.38); NEUTROPHILS 92.4 % (40-80); PLATELET COUNT 346 10x3/uL (130-400); RDW 14.9 % (11.5-14.5)
[2021-01-09 06:47] LABS: WBC 15.8 10x3/uL (4.8-10.8)
[2021-01-09 08:02] VITALS: BP 125/56
[2021-01-09 10:12] LABS: ANA REFLEX - DIRECT Negative (Negative)
[2021-01-09 12:30] VITALS: BP 109/53
--- NOTE | 2021-01-09 13:59 | NUR ---
Nutrition Follow-up: Fair PO intake. ST signed off. Diet: Cardiac PO intake: 58% avg x 4 meals No new wt; last wt: 121# (01/05) Labs noted: Glu 137, Alb 2.3 Meds noted: Protonix, Bumex, Senokot, Solumedrol, Micro K, Dulcolax, Florajen, NS @ 30 -Encourage PO intake and honor food preferences within diet restrictions. -Pt may benefit from an appetite stimulant if medically feasible. -Need new wt. -RD follow-up: 01/13
--- NOTE | 2021-01-09 15:46 | NUR ---
O2 AT 4, PATIENT ABLE TO GET UP TO BEDSIDE AND STAND BY HIMSELF. PATIENT WALKED 250 FEET WITH MIN ASST WITHOUT ASST DEVICE. PATIENT IS BLIND AND USED A WALKING STICK. PATIENT WAS A LITTLE UNSTEADY AT TIMES.
[2021-01-09 15:48] VITALS: BP 121/58
[2021-01-09 20:54] VITALS: BP 126/61
[2021-01-10 01:56] VITALS: BP 123/48
[2021-01-10 06:32] LABS: BASOPHILS 0 % (0-2); EOSINOPHILS 0 % (0-7); HEMATOCRIT 31.3 % (42.0-54.0); HEMOGLOBIN 9.8 g/dL (13.5-17.5); IMMATURE GRANULOCYTES 0.4 % (0-5); LYMPHOCYTE ABS# 0.54 10x3/uL (1.32-3.57); LYMPHOCYTES 3.3 % (15-50); MCH 29.5 pg (26.0-34.0); MCHC 31.3 g/dL (31.0-37.0); MCV 94.3 fL (80.0-100.0); MEAN PLATELET VOLUME 10.5 fL (7.4-10.4); NEUTROPHIL ABS# 15.03 10x3/uL (1.78-5.38); NEUTROPHILS 93.3 % (40-80); PLATELET COUNT 336 10x3/uL (130-400); RBC 3.32 10x6/uL (4.20-6.10); RDW 14.9 % (11.5-14.5); WBC 16.1 10x3/uL (4.8-10.8)
[2021-01-10 06:38] LABS: ALBUMIN 2.1 g/dL (3.4-5.0); ALKALINE PHOSPHATASE 131 U/L (30-120); BILIRUBIN - TOTAL 0.21 mg/dL (0.2-1.3); CALC OSMOLALITY 285 mosm/kg (275-300); CALCIUM 8.5 mg/dL (8.5-10.1); CARBON DIOXIDE 31.1 mmol/L (21.0-32.0); CHLORIDE - SERUM 105 mmol/L (98-107); GLUCOSE 138 mg/dL (74-106); POTASSIUM - SERUM 3.7 mmol/L (3.5-5.1); PROTEIN - SERUM 5.6 g/dL (6.4-8.2); SODIUM 140 mmol/L (136-145); UREA NITROGEN 27 mg/dL (7-18); eGFR NON AFRICAN AMERICAN 75 mL/min (90-120)
[2021-01-10 06:43] VITALS: BP 129/65
[2021-01-10 06:43] LABS: ALT (SGPT) 23 U/L (10-68)
[2021-01-10 09:00] VITALS: BP 130/68
--- NOTE | 2021-01-10 09:39 | NUR ---
AM ROUNDING PERFORMED. DAILY ASSESSMENT COMPLETE. PATIENT DENIES REQUESTS AT THIS TIME. RT ENDING TREATMENTS. WILL RETURN FOR MEDS.
--- NOTE | 2021-01-10 09:50 | NUR ---
ANCILLARY STAFF CAME TO NURSES STATION STATING THAT PATIENT WAS HAVING DIFFICULTY BREATHING. UPON ENTERING ROOM PATIENT IS FOUND TO BE IN TRIPOD POSITION, USING ABD MUSCLES, AND DISPLAYS NASAL FLARING, ON 6L NC, AND O2 SAT 84%. O2 TEMPORARILY INCREASED TO 10L PER MIN VIA NC, PATIENT COACHED ON DEEP BREATHING, COUGHING, ASSISTED TO HIGH ALVARADO, AND O2 SATURATION FINGER PROBE READJUSTED TO CHECK ACCURACY. RIGHT LUNG SOUNDS ARE RHONCHI WITH CRACKLES, LEFT LUNG SOUNDS ARE THE SAME BUT LESS PROMINENT. SOB AND DESAT PERSISTS AT 86%, RESPIRATORY CALLED AT 0955. RT AT BEDSIDE STATES THAT PATIENT MAY BE STRUGGLING AFTER TREATMENT, MAY NEED NEW CHEST XRAY, AND XOPENEX COULD ASSIST PATIENT. X 1 XOPENEX GIVEN. PATIENT CONTINOUSLY COACHED IN BREATHING AND COUGHIN. 2ND RT PERSONNEL AT BEDSIDE. DR KRISTINA GRANT. AWAITING RETURN CALL.
[2021-01-10 10:52] VITALS: BP 137/60
--- NOTE | 2021-01-10 10:52 | NUR ---
PATIENT CONTINUES TO EXHIBIT SOB. O2 SATURATION VARYING FROM 86% TO 97%.
--- NOTE | 2021-01-10 10:56 | NUR ---
DR ACEVEDO PAGED AT THIS TIME. AWAITING RETURN CALL.
--- NOTE | 2021-01-10 11:03 | NUR ---
DR ACEVEDO NOTIFIED OF EVENTS. DR ACEVEDO COMING TO EXAMINE PATIENT.
--- NOTE | 2021-01-10 11:10 | NUR ---
DR ACEVEDO AT BEDSIDE. PATIENT SLIGHTLY IMPROVED. DR ACEVEDO STATES HE IS ORDERING VEST FOR CHEST PHYSIOTHERAPY FROM RT AND THEY WILL APPLY TODAY.
--- NOTE | 2021-01-10 15:43 | NUR ---
NEW IV STARTED TO LEFT FOREARM.
[2021-01-10 16:58] VITALS: BP 139/80
--- NOTE | 2021-01-10 19:30 | NUR ---
RECEIVED BEDSIDE REPORT. ROUNDING COMPLETE. PATIENT IS ALERT AND ORIENTED, RESTING COMFORTABLY IN BED. RESPIRATIONS ARE EVEN AND UNLABORED. NO S/S OF DISTRESS. NO C/O PAIN. NEEDS MET. CALL LIGHT WITHIN REACH. WILL CPOC.
[2021-01-10 21:38] VITALS: BP 127/61
[2021-01-11 03:16] VITALS: BP 151/79
[2021-01-11 04:55] LABS: BASOPHILS 0 % (0-2); EOSINOPHILS 0 % (0-7); HEMATOCRIT 33.5 % (42.0-54.0); HEMOGLOBIN 10.4 g/dL (13.5-17.5); IMMATURE GRANULOCYTES 0.5 % (0-5); LYMPHOCYTE ABS# 0.67 10x3/uL (1.32-3.57); LYMPHOCYTES 4.3 % (15-50); MCH 29.5 pg (26.0-34.0); MCV 94.9 fL (80.0-100.0); MEAN PLATELET VOLUME 10.4 fL (7.4-10.4); MONOCYTES 3.4 % (2-11); NEUTROPHIL ABS# 14.16 10x3/uL (1.78-5.38); NEUTROPHILS 91.8 % (40-80); PLATELET COUNT 353 10x3/uL (130-400); RBC 3.53 10x6/uL (4.20-6.10); WBC 15.4 10x3/uL (4.8-10.8)
[2021-01-11 05:13] LABS: ALBUMIN 2.3 g/dL (3.4-5.0); ALKALINE PHOSPHATASE 108 U/L (30-120); BILIRUBIN - TOTAL 0.39 mg/dL (0.2-1.3); CALC OSMOLALITY 284 mosm/kg (275-300); CALCIUM 8.5 mg/dL (8.5-10.1); CARBON DIOXIDE 30.8 mmol/L (21.0-32.0); CHLORIDE - SERUM 104 mmol/L (98-107); CREATININE - SERUM 0.8 mg/dL (0.6-1.3); GLUCOSE 132 mg/dL (74-106); POTASSIUM - SERUM 3.6 mmol/L (3.5-5.1); PROTEIN - SERUM 5.8 g/dL (6.4-8.2); SODIUM 139 mmol/L (136-145); UREA NITROGEN 27 mg/dL (7-18); eGFR NON AFRICAN AMERICAN > 90 mL/min (90-120)
[2021-01-11 05:15] LABS: ALT (SGPT) 35 U/L (10-68)
--- NOTE | 2021-01-11 07:20 | NUR ---
RECIEVE REPORT. RESTING IN BED WITH EYES CLOSED. NO SIGNS OF DISTRESS. O2 @ 6LHFNC. CONTINUE PLAN OF CARE AND SAFETY PRECAUTIONS.
[2021-01-11 09:21] VITALS: BP 139/64
[2021-01-11 13:14] VITALS: BP 134/66
[2021-01-11 17:14] VITALS: BP 126/56
--- NOTE | 2021-01-11 17:23 | NUR ---
ALERT AND ORIENTED X4. SITTING UP IN BED. ANTIBIOTICS INFUSING ORDERED. CONSENTS FOR BRONCHOSCOPY SIGNED ON CHART. NOTIFY SPOUSE OF ESTIMATED TIME FOR PROCEDURE. DENIES ANY NEEDS. CONTINUE PLAN OF CARE AND SAFETY PRECAUTIONS.
--- NOTE | 2021-01-11 19:22 | NUR ---
RECEIVED BEDSIDE REPORT. ROUNDING COMPLETE. PATIENT IS ALERT AND ORIENTED, RESTING COMFORTABLY IN BED. PATIENT SHORT OF BREATH WITH ACTIVITY. PATIENT REMAINS ON 5L HF NC. NO S/S OF DISTRESS. NO C/O PAIN. CALL LIGHT WITHIN REACH. WILL CPOC.
[2021-01-11 20:28] VITALS: BP 146/70; BP 177/72
[2021-01-12 03:15] VITALS: BP 127/68
[2021-01-12 07:51] LABS: BASOPHILS 0.1 % (0-2); EOSINOPHILS 0.1 % (0-7); HEMATOCRIT 34.3 % (42.0-54.0); HEMOGLOBIN 10.9 g/dL (13.5-17.5); IMMATURE GRANULOCYTES 0.4 % (0-5); LYMPHOCYTE ABS# 0.67 10x3/uL (1.32-3.57); LYMPHOCYTES 5.4 % (15-50); MCH 30.3 pg (26.0-34.0); MCHC 31.8 g/dL (31.0-37.0); MCV 95.3 fL (80.0-100.0); MEAN PLATELET VOLUME 10.6 fL (7.4-10.4); MONOCYTES 7.9 % (2-11); NEUTROPHIL ABS# 10.67 10x3/uL (1.78-5.38); NEUTROPHILS 86.1 % (40-80); PLATELET COUNT 363 10x3/uL (130-400); RDW 14.9 % (11.5-14.5); WBC 12.4 10x3/uL (4.8-10.8)
[2021-01-12 08:13] LABS: APTT 26.4 SECONDS (22.8-39.4); INR 1.12 (0.85-1.17); PROTIME 13.3 SECONDS (11.6-15.0)
[2021-01-12 08:15] LABS: ALBUMIN 2.4 g/dL (3.4-5.0); ALKALINE PHOSPHATASE 118 U/L (30-120); BILIRUBIN - TOTAL 0.38 mg/dL (0.2-1.3); CALC OSMOLALITY 283 mosm/kg (275-300); CALCIUM 8.7 mg/dL (8.5-10.1); CARBON DIOXIDE 34.1 mmol/L (21.0-32.0); CHLORIDE - SERUM 102 mmol/L (98-107); CREATININE - SERUM 0.9 mg/dL (0.6-1.3); GLUCOSE 110 mg/dL (74-106); POTASSIUM - SERUM 3.7 mmol/L (3.5-5.1); PROTEIN - SERUM 5.9 g/dL (6.4-8.2); SODIUM 140 mmol/L (136-145); UREA NITROGEN 25 mg/dL (7-18); eGFR NON AFRICAN AMERICAN 85 mL/min (90-120)
[2021-01-12 08:16] LABS: ALT (SGPT) 54 U/L (10-68)
[2021-01-12 08:29] VITALS: BP 147/71
--- NOTE | 2021-01-12 11:01 | NUR ---
iv meds given at this time
--- NOTE | 2021-01-12 12:19 | NUR ---
ALBUTEROL AND 10% LIDOCAINE UPD GIVEN FOR BRONCH.
[2021-01-12 12:41] VITALS: BP 148/75
--- NOTE | 2021-01-12 13:00 | NUR ---
PATIENT TAKEN BACK FOR HIS BRONCOSCOPY
[2021-01-12 14:08] VITALS: BP 133/64
--- NOTE | 2021-01-12 14:15 | NUR ---
PATIENT GONE FOR PROCEDURE IN THE PM WHEN PT CAME BY. PATIENT ON HOLD PER NSG.
[2021-01-12 17:35] VITALS: BP 141/73
--- NOTE | 2021-01-12 19:17 | NUR ---
ASSESSMENT COMPLETE, PT SITTING UP IN BED, APPEARS TO BE WATCHING TV. RESPERATIONS NON LABORED ON O2 AT 8 LITERS VIA H.F. CANULA, SPO2 98%. IV TO LEFT UPPER ARM WITH NS INFUSING AT KVO, SITE CLEAN AND DRY. PT DENIES PAIN OR NEEDS, BED LOW, CL IN REACH.
[2021-01-12 20:00] VITALS: BP 124/50
[2021-01-13] VITALS: BP 126/60
--- NOTE | 2021-01-13 03:23 | NUR ---
RESTING WITH EYES CLOSED, NO S/S DISTRESS NOTED.
[2021-01-13 05:45] LABS: BASOPHILS 0 % (0-2); EOSINOPHILS 0 % (0-7); HEMATOCRIT 32.4 % (42.0-54.0); HEMOGLOBIN 10.2 g/dL (13.5-17.5); IMMATURE GRANULOCYTES 0.3 % (0-5); LYMPHOCYTE ABS# 0.59 10x3/uL (1.32-3.57); LYMPHOCYTES 5.1 % (15-50); MCH 29.7 pg (26.0-34.0); MCHC 31.5 g/dL (31.0-37.0); MCV 94.2 fL (80.0-100.0); MEAN PLATELET VOLUME 10.7 fL (7.4-10.4); NEUTROPHIL ABS# 10.15 10x3/uL (1.78-5.38); NEUTROPHILS 88.6 % (40-80); PLATELET COUNT 329 10x3/uL (130-400); RBC 3.44 10x6/uL (4.20-6.10); RDW 14.9 % (11.5-14.5); WBC 11.5 10x3/uL (4.8-10.8)
[2021-01-13 06:09] LABS: ALBUMIN 2.2 g/dL (3.4-5.0); ALKALINE PHOSPHATASE 93 U/L (30-120); ALT (SGPT) 44 U/L (10-68); CALC OSMOLALITY 286 mosm/kg (275-300); CALCIUM 8.5 mg/dL (8.5-10.1); CARBON DIOXIDE 34.9 mmol/L (21.0-32.0); CHLORIDE - SERUM 102 mmol/L (98-107); CREATININE - SERUM 0.8 mg/dL (0.6-1.3); GLUCOSE 128 mg/dL (74-106); POTASSIUM - SERUM 3.7 mmol/L (3.5-5.1); PROTEIN - SERUM 5.4 g/dL (6.4-8.2); SODIUM 140 mmol/L (136-145); UREA NITROGEN 30 mg/dL (7-18); eGFR NON AFRICAN AMERICAN > 90 mL/min (90-120)
--- NOTE | 2021-01-13 06:27 | NUR ---
I have reviewed this patient and I concur with the Shift Assessment completed by the Licensed Practical Nurse today this shift.
--- NOTE | 2021-01-13 08:09 | NUR ---
po meds given at this time, nurse helps patient up to restroom to have a bm.
[2021-01-13 08:19] VITALS: BP 187/61
--- NOTE | 2021-01-13 10:14 | NUR ---
PATIENT COMPLAINS OF CONSTIPATION, NURSE REPORTS TO JACK CONNELLY. WILL TRY MEDICATION TO HELP HIM USE RESTROOM.
--- NOTE | 2021-01-13 11:43 | NUR ---
O2 AT 8, PATIENT ABLE TO GET UP TO BEDSIDE AND STAND BY HIMSELF. PATIENT WALKED IN GONZALEZ 250 FEET WHILE USING HIS WALKING STICK WITH JUST CGA.
[2021-01-13 13:24] VITALS: BP 169/65
--- NOTE | 2021-01-13 14:39 | NUR ---
Nutrition Reassessment/Follow-up: Pt reports appetite is improving but, per record, only ate ~25% of breakfast this AM. Denies N/V but c/o constipation and states that his last BM was 11 days ago; discussed in IDT. Diet: Cardiac No new wt; last wt: 121# (01/05) Labs noted: Glu 128, Alb 2.2 Meds noted: Dulcolax, Protonix, Florajen, Senokot, Bumex, Micro K, Solumedrol, electrolyte protocol -Nutrition needs unchanged from initial assessment; no new wt available. -Encourage PO intake and honor food preferences within diet restrictions; hopeful that PO intake will improve with BM. -Offer nutrition supplements. -Need new wt. -RD will follow up within 3 days.
[2021-01-13 15:32] VITALS: BP 113/53
[2021-01-13 17:09] LABS: ACID FAST SMEAR Negative (()); AFB SPECIMEN PROCESSING Concentration (())
[2021-01-13 20:00] VITALS: BP 134/66
[2021-01-14] VITALS: BP 127/61
[2021-01-14 04:00] VITALS: BP 118/56
[2021-01-14 08:17] VITALS: BP 135/68
--- NOTE | 2021-01-14 08:24 | NUR ---
po meds given at this time. patient just finished eating breakfast. denies needs. call light in reach
--- NOTE | 2021-01-14 10:36 | NUR ---
NURSE DECREASED [address] FATIMA.
[2021-01-14 11:40] VITALS: BP 134/60
--- NOTE | 2021-01-14 13:20 | NUR ---
O2 AT 6, PATIENT ABLE TO GET UP TO BEDSIDE AND STAND BY HIMSELF. PATIENT WALKED IN GONZALEZ 250 FEET WITH MIN-CGA USING HIS CANE.
[2021-01-14 14:10] LABS: FUNGUS STAIN Final report (())
[2021-01-14] MEDS ORDERED: ALDACTONE25 MG PO (14:54)
[2021-01-14] MEDS ORDERED: ENTRESTO 24 MG1 EACH PO (14:54)
[2021-01-14] MEDS ORDERED: ADOXA100 MG PO (14:56)
--- NOTE | 2021-01-14 15:49 | NUR ---
NURSE REVIEWS ALL OF PATIENT'S FOLLOW UP APPT, DC MEDICATIONS AND HAS CASE MANAGEMENT FAX HOSPITAL SUMMARY TO HOME HEALTH. NURSE TO REMOVE PATIENT'S IV SHORTLY BEFORE DISCHARGE.
--- NOTE | 2021-01-14 16:00 | NUR ---
NURSE CALLS IN PRESCRIPTIONS FOR PATIENT AT THIS TIME AT CORRECT PHARMACY.
--- NOTE | 2021-01-14 16:15 | NUR ---
NURSE REMOVES IV WITH CATH TIP INTACT. NURSE HELPS PATIENT INTO WHEELCHAIR AND WHEELS PATIENT DOWN TO PRIVATE VEHICLE WITH O2 FROM HOME. NAD NOTED.
== END 2021-01-14 16:51 | disposition home or self-care (01) | DRG 193 ==
LOC: D.ER 16:48 → D.M2 18:56
PROVIDERS: Emergency Medicine; Family Medicine; Internal Medicine Pulmonary Disease; ADMIT Emergency Medicine; ATTEND Emergency Medicine
PROC: 0B9C8ZX Drainage of Right Upper Lung Lobe, Via Natural or Artificial Opening Endoscopic, Diagnostic (ICD-10-PCS; principal; 2021-01-12 13:00)
DX: J18.9 Pneumonia, unspecified organism (principal); J96.01 Acute respiratory failure with hypoxia; I50.21 Acute systolic (congestive) heart failure; I24.8 Other forms of acute ischemic heart disease; R04.2 Hemoptysis; J44.0 Chronic obstructive pulmonary disease with (acute) lower respiratory infection; J44.1 Chronic obstructive pulmonary disease with (acute) exacerbation; J98.11 Atelectasis; E78.5 Hyperlipidemia, unspecified; N40.0 Benign prostatic hyperplasia without lower urinary tract symptoms; F32.9 Major depressive disorder, single episode, unspecified; I25.10 Atherosclerotic heart disease of native coronary artery without angina pectoris; H35.30 Unspecified macular degeneration; I11.0 Hypertensive heart disease with heart failure; D64.9 Anemia, unspecified; J98.09 Other diseases of bronchus, not elsewhere classified; E83.42 Hypomagnesemia; R41.0 Disorientation, unspecified; I08.1 Rheumatic disorders of both mitral and tricuspid valves

== ENCOUNTER 2021-01-19 22:26 | Inpatient (IN) | payer OTHER ==
[~2021-01-19] VITALS: Ht 172.7 cm; Wt 52.3 kg
[~2021-01-19 22:26] MED LIST changes: +ADOXA100 MG PO; +ALDACTONE25 MG PO; +ENTRESTO 24 MG1 EACH PO; +MELATONIN 3 MG1 TAB PO
[2021-01-19 22:30] VITALS: BP 128/89
[2021-01-19 23:30] VITALS: BP 95/50
[2021-01-19 23:39] LABS: HEMATOCRIT 40.1 % (42.0-54.0); HEMOGLOBIN 12.9 g/dL (13.5-17.5); MCH 30.8 pg (26.0-34.0); MCHC 32.2 g/dL (31.0-37.0); MCV 95.7 fL (80.0-100.0); MEAN PLATELET VOLUME 11.4 fL (7.4-10.4); PLATELET COUNT 156 10x3/uL (130-400); RBC 4.19 10x6/uL (4.20-6.10); RDW 15.3 % (11.5-14.5); WBC 27.9 10x3/uL (4.8-10.8)
[2021-01-19 23:48] LABS: ANION GAP 14.8 mmol/L (8-16); CALCIUM 8.6 mg/dL (8.5-10.1); CARBON DIOXIDE 26.2 mmol/L (21.0-32.0); CREATININE - SERUM 1.3 mg/dL (0.6-1.3)
[2021-01-19 23:53] LABS: ALBUMIN 2.9 g/dL (3.4-5.0); BILIRUBIN - TOTAL 1.37 mg/dL (0.2-1.3); PROTEIN - SERUM 6.5 g/dL (6.4-8.2)
[2021-01-20] VITALS (7 sets, daily range): BP systolic 86–114; BP diastolic 43–59; BMI 17.5
[2021-01-20 00:04] LABS: EOSINOPHILS 4 % (0-7); LYMPHOCYTES 4 % (15-50); MONOCYTES 2 % (2-11); NEUTROPHILS 82 % (40-80); PLATELET ESTIMATE DECREASED
--- NOTE | 2021-01-20 00:21 | NUR ---
PATIENT ON BEDPAN FOR HAD A SOFT SMALL SMEAR.
--- NOTE | 2021-01-20 01:15 | NUR ---
AND SON ALTERNATING BEING AT BEDSIDE. PATIENT ATTEMPTED TO HAVE ANOTHER BM APPROX 100 CC SOFT STOOL EXPELLED WHILE ON BEDPAN
--- NOTE | 2021-01-20 06:46 | NUR ---
PATIENT RESTED WELL, COOPERATED WITH ALL REQUESTS.
[2021-01-20 07:23] LABS: BASOPHILS 0.1 % (0-2); EOSINOPHILS 0.1 % (0-7); HEMATOCRIT 40.5 % (42.0-54.0); HEMOGLOBIN 12.8 g/dL (13.5-17.5); IMMATURE GRANULOCYTES 0.8 % (0-5); LYMPHOCYTE ABS# 1.31 10x3/uL (1.32-3.57); LYMPHOCYTES 4.3 % (15-50); MCH 30.5 pg (26.0-34.0); MCHC 31.6 g/dL (31.0-37.0); MCV 96.4 fL (80.0-100.0); NEUTROPHIL ABS# 26.79 10x3/uL (1.78-5.38); NEUTROPHILS 88.7 % (40-80); PLATELET COUNT 189 10x3/uL (130-400); RDW 15.6 % (11.5-14.5); WBC 30.2 10x3/uL (4.8-10.8)
[2021-01-20 07:26] LABS: ALBUMIN 2.7 g/dL (3.4-5.0); ANION GAP 17.3 mmol/L (8-16); BILIRUBIN - TOTAL 1.1 mg/dL (0.2-1.3); CALCIUM 8.6 mg/dL (8.5-10.1); CREATININE - SERUM 1.5 mg/dL (0.6-1.3); MAGNESIUM - SERUM 3.4 mg/dL (1.8-2.4); PHOSPHOROUS 3.9 mg/dL (2.5-4.9); POTASSIUM - SERUM 4.3 mmol/L (3.5-5.1); PROTEIN - SERUM 6.3 g/dL (6.4-8.2)
--- NOTE | 2021-01-20 07:34 | NUR ---
PATIENT REQUESTED PAIN MEDICATION, STATED RECTAL PAIN IS AT A 10 WHEN HE TRIES TO GO, PM NURSE ADMINISTERED PRN MEDICATION, SENT MESSAGE TO HEARINGS REPORTER IN REGARDS TO FLUIDS. CONTINUE WITH PLAN OF CARE
--- NOTE | 2021-01-20 09:56 | NUR ---
RECEIVED ORDER FOR GASTROGRAFIN ENEMA. PER DR PARRA, RADIOLOGIST, WOULD LIKE FOR THE FLOOR NURSE TO ATTEMPT A FLEETS ENEMA BEFORE RADIATION DOSE IS GIVEN TO THE PATIENT DURING A GASTROGRAFIN ENEMA. TERRY PASTOR RT(R)
--- NOTE | 2021-01-20 10:04 | NUR ---
PATIENT WAS ORDERED GASTROGRAFIN ENEMA, PER MITERING MACHINE OPERATORRYLAN CAO, RADIOLOGIST WOULD PREFER A DIFFERENT ROUTE FIRST BEFORE THIS OPTION, RELAYED MESSAGE TO SUPERVISOR WOOL SHEARING FOR DR GONZALEZ. NO OTHER NEEDS AT THIS TIME. CONTINUE WITH PLAN OFR CARE
[2021-01-20 11:02] LABS: BILIRUBIN NEGATIVE (NEGATIVE); KETONE SMALL mg/dL (NEGATIVE); NITRITE NEGATIVE (NEGATIVE); UROBILINOGEN 4 mg/dL (< 2); WHITE CELLS - URINE RARE HPF (0-1)
[2021-01-20 11:03] LABS: BACTERIA FEW HPF (NONE SEEN); SQUAMOUS EPITHELIAL OCC HPF (0-4)
--- NOTE | 2021-01-20 18:24 | NUR ---
patient has had 4 very small nms today with bowel regimine given, patient has had stool softeners as well as suppository and enema. continue with plan of care
--- NOTE | 2021-01-20 21:29 | NUR ---
TELEMTRY REPORTED RUN OF VTACH WITH 10 PVCS. PATIENT SLEEPINF IN BED, ASYMPTOMATIC. PER PSYCH NURSE, CONSULT CARDIOLOGY, SERIAL EKGS AND CARDIAC ENZYMES, STAT BMP AND MAG.
[2021-01-20 22:28] LABS: CALC OSMOLALITY 289 mosm/kg (275-300); CALCIUM 7.9 mg/dL (8.5-10.1); CHLORIDE - SERUM 106 mmol/L (98-107); CKMB 1.1 U/L (0.0-3.6); CREATINE KINASE 20 UL (21-232); CREATININE - SERUM 1.5 mg/dL (0.6-1.3); GLUCOSE 120 mg/dL (74-106); MAGNESIUM - SERUM 3.2 mg/dL (1.8-2.4); POTASSIUM - SERUM 4.1 mmol/L (3.5-5.1); SODIUM 140 mmol/L (136-145); UREA NITROGEN 40 mg/dL (7-18); eGFR NON AFRICAN AMERICAN 47 mL/min (90-120)
[2021-01-21 03:40] LABS: BASOPHILS 0 % (0-2); EOSINOPHILS 0.1 % (0-7); HEMATOCRIT 32.5 % (42.0-54.0); HEMOGLOBIN 10.2 g/dL (13.5-17.5); IMMATURE GRANULOCYTES 0.7 % (0-5); LYMPHOCYTE ABS# 1.06 10x3/uL (1.32-3.57); LYMPHOCYTES 4.1 % (15-50); MCH 29.5 pg (26.0-34.0); MCHC 31.4 g/dL (31.0-37.0); MCV 93.9 fL (80.0-100.0); MEAN PLATELET VOLUME 11.7 fL (7.4-10.4); MONOCYTES 7.9 % (2-11); NEUTROPHIL ABS# 22.29 10x3/uL (1.78-5.38); NEUTROPHILS 87.2 % (40-80); PLATELET COUNT 145 10x3/uL (130-400); RBC 3.46 10x6/uL (4.20-6.10); RDW 15.6 % (11.5-14.5); WBC 25.6 10x3/uL (4.8-10.8)
[2021-01-21 04:00] VITALS: BP 99/40
[2021-01-21 04:07] LABS: ALKALINE PHOSPHATASE 80 U/L (30-120); BILIRUBIN - TOTAL 0.64 mg/dL (0.2-1.3); CALC OSMOLALITY 287 mosm/kg (275-300); CALCIUM 7.7 mg/dL (8.5-10.1); CHLORIDE - SERUM 108 mmol/L (98-107); CKMB 1.2 U/L (0.0-3.6); CREATINE KINASE 22 UL (21-232); CREATININE - SERUM 1.2 mg/dL (0.6-1.3); GLUCOSE 107 mg/dL (74-106); POTASSIUM - SERUM 4.6 mmol/L (3.5-5.1); PROTEIN - SERUM 5.1 g/dL (6.4-8.2); SODIUM 140 mmol/L (136-145); TROPONIN-I 0.054 ng/mL (0.000-0.060); UREA NITROGEN 38 mg/dL (7-18); eGFR NON AFRICAN AMERICAN 61 mL/min (90-120)
[2021-01-21 04:08] LABS: ALT (SGPT) 19 U/L (10-68); PHOSPHOROUS 2.9 mg/dL (2.5-4.9)
--- NOTE | 2021-01-21 06:44 | NUR ---
PATIENT HAD LARGE BM.
--- NOTE | 2021-01-21 07:32 | NUR ---
PATIENT IS WITHOUT DISTRESS.CALL LIGHT IN REACH
--- NOTE | 2021-01-21 08:03 | NUR ---
PATIENT HAD ANOTHER BIG SOFT BM THIS MORNING, PER PM NURSE PATIENT HAS HAD SEVERAL THROUGH THE EVENING. NO SIGNS OF DISTRESS, NO NEEDS VOICED AT THIS TIME, CONTINUE WITH PLAN OF CARE
[2021-01-21 09:17] LABS: CKMB 1.5 U/L (0.0-3.6); CREATINE KINASE 25 UL (21-232); TROPONIN-I 0.043 ng/mL (0.000-0.060)
[2021-01-21 09:23] VITALS: BP 91/42
[2021-01-21 10:12] VITALS: Ht 172.7 cm; Wt 52.3 kg
[2021-01-21 13:28] VITALS: BP 99/34
[2021-01-21 17:47] VITALS: BP 115/34
[2021-01-21 20:00] VITALS: BP 100/42
--- NOTE | 2021-01-22 01:36 | NUR ---
I have reviewed this patient and I concur with the Shift Assessment completed by the Licensed Practical Nurse today this shift.
--- NOTE | 2021-01-22 02:44 | NUR ---
PT RESTING IN BED WITH WITH EYES CLOSED NO DISTRESS NOTED AT THE MOMENT. CALL LIGHT WITHIN REACH.
[2021-01-22 04:00] VITALS: BP 96/46
[2021-01-22 06:20] LABS: BASOPHILS 0.1 % (0-2); EOSINOPHILS 0.7 % (0-7); HEMATOCRIT 29.2 % (42.0-54.0); HEMOGLOBIN 9.3 g/dL (13.5-17.5); IMMATURE GRANULOCYTES 0.5 % (0-5); LYMPHOCYTE ABS# 1.19 10x3/uL (1.32-3.57); LYMPHOCYTES 6.8 % (15-50); MCH 30.2 pg (26.0-34.0); MCHC 31.8 g/dL (31.0-37.0); MCV 94.8 fL (80.0-100.0); MEAN PLATELET VOLUME 11.5 fL (7.4-10.4); MONOCYTES 4.9 % (2-11); NEUTROPHIL ABS# 15.15 10x3/uL (1.78-5.38); PLATELET COUNT 122 10x3/uL (130-400); RBC 3.08 10x6/uL (4.20-6.10); RDW 15.6 % (11.5-14.5)
[2021-01-22 06:32] LABS: WBC 17.4 10x3/uL (4.8-10.8)
[2021-01-22 06:46] LABS: ALBUMIN 1.8 g/dL (3.4-5.0); ALKALINE PHOSPHATASE 87 U/L (30-120); ALT (SGPT) 19 U/L (10-68); BILIRUBIN - TOTAL 0.44 mg/dL (0.2-1.3); CALC OSMOLALITY 282 mosm/kg (275-300); CALCIUM 7.3 mg/dL (8.5-10.1); CARBON DIOXIDE 24.8 mmol/L (21.0-32.0); CHLORIDE - SERUM 107 mmol/L (98-107); CREATININE - SERUM 0.8 mg/dL (0.6-1.3); GLUCOSE 82 mg/dL (74-106); MAGNESIUM - SERUM 2.2 mg/dL (1.8-2.4); PHOSPHOROUS 1.7 mg/dL (2.5-4.9); POTASSIUM - SERUM 3.9 mmol/L (3.5-5.1); PROTEIN - SERUM 4.3 g/dL (6.4-8.2); SODIUM 140 mmol/L (136-145); UREA NITROGEN 27 mg/dL (7-18); eGFR NON AFRICAN AMERICAN > 90 mL/min (90-120)
--- NOTE | 2021-01-22 07:08 | NUR ---
SLEEPING,WITHOUT NEEDS. DOOR OPEN TO MONITOR
[2021-01-22 09:18] VITALS: BP 101/44
[2021-01-22 12:37] VITALS: BP 105/69
--- NOTE | 2021-01-22 13:36 | NUR ---
Nutrition follow-up: Pt sitting up in bed eating breakfast at time of RD visit. Pt states he will eat as much as he can; reports getting full fast. Diet order: regular PO Intake ~50% of meals +BM Labs reviewed Wt: 115# Will continue to provide food choices and honor food preferences. Will offer and encourage nutritional supplements. RDN follow-up: 01/27/21
[2021-01-22 16:46] VITALS: BP 98/49
--- NOTE | 2021-01-22 17:08 | NUR ---
OT NOTE: (AM) PT COMPLETED BED MOBILITY WITH MIN A. PT REQUIRED MAX A FOR LB HYGIENE SECONDARY TO BM. PT COMPLETED SIT TO STAND WITH CGA. PT COMPLETED ADL MOB WITH CGA. PT REQUIRED MIN-MOD A TO RYLEE BRIEF. (PM) PT REQUIRED MAX A FOR LB HYGIENE TASKS. PT COMPLETED DYNAMIC STANDING BALANCE WITH CGA WITH UB HYGIENE TASKS AT SINK LEVEL. [id number] THANK YOU,GO KING
[2021-01-22 20:00] VITALS: BP 100/54
[2021-01-23] VITALS: BP 105/46
--- NOTE | 2021-01-23 03:20 | NUR ---
PT RESTING IN BED WITH EYES CLOSED. NO SIGNS OF DISTRESS. WILL CONT PLAN OF CARE.
[2021-01-23 04:00] VITALS: BP 106/49
[2021-01-23 06:19] LABS: BASOPHILS 0.1 % (0-2); EOSINOPHILS 1.7 % (0-7); HEMATOCRIT 30.4 % (42.0-54.0); HEMOGLOBIN 9.5 g/dL (13.5-17.5); IMMATURE GRANULOCYTES 0.3 % (0-5); LYMPHOCYTE ABS# 1.19 10x3/uL (1.32-3.57); LYMPHOCYTES 11.1 % (15-50); MCH 29.5 pg (26.0-34.0); MCHC 31.3 g/dL (31.0-37.0); MCV 94.4 fL (80.0-100.0); MEAN PLATELET VOLUME 11.8 fL (7.4-10.4); MONOCYTES 5.5 % (2-11); NEUTROPHIL ABS# 8.76 10x3/uL (1.78-5.38); NEUTROPHILS 81.3 % (40-80); PLATELET COUNT 127 10x3/uL (130-400); RBC 3.22 10x6/uL (4.20-6.10); RDW 15.3 % (11.5-14.5)
[2021-01-23 06:22] LABS: WBC 10.8 10x3/uL (4.8-10.8)
[2021-01-23 06:32] LABS: ALBUMIN 1.7 g/dL (3.4-5.0); ALKALINE PHOSPHATASE 92 U/L (30-120); ALT (SGPT) 18 U/L (10-68); BILIRUBIN - TOTAL 0.51 mg/dL (0.2-1.3); CALC OSMOLALITY 279 mosm/kg (275-300); CALCIUM 7.8 mg/dL (8.5-10.1); CARBON DIOXIDE 24.9 mmol/L (21.0-32.0); CHLORIDE - SERUM 106 mmol/L (98-107); CREATININE - SERUM 0.9 mg/dL (0.6-1.3); GLUCOSE 72 mg/dL (74-106); MAGNESIUM - SERUM 1.9 mg/dL (1.8-2.4); POTASSIUM - SERUM 3.6 mmol/L (3.5-5.1); PROTEIN - SERUM 4.5 g/dL (6.4-8.2); SODIUM 140 mmol/L (136-145); eGFR NON AFRICAN AMERICAN 85 mL/min (90-120)
[2021-01-23 06:36] LABS: UREA NITROGEN 19 mg/dL (7-18)
--- NOTE | 2021-01-23 07:03 | NUR ---
I have reviewed this patient and I concur with the Shift Assessment completed by the Licensed Practical Nurse today this shift.
[2021-01-23 08:46] VITALS: BP 123/55
--- NOTE | 2021-01-23 12:39 | NUR ---
OT NOTE: PT DOING MUCH BETTER TODAY. REPORTS THAT HE IS FEELING GOOD..SITTING UP IN CHAIR; PT ABLE TO AMB IN ROOM WITH WALKER AND MIN ASSIST; TOILET TRANSFERS WITH MIN ASSIST; TOILETING WITH MIN ASSIST. HOWEVER, PT IS STILL WEAK AND WOULD BENEFIT FROM IP REHAB PRIOR TO DC HOME TO IMPROVE STRENGTH, ENDURANCE, AND ADL INDEP. KERA HERRERA, OTR/L [phone]
[2021-01-23 12:48] VITALS: BP 103/61
--- NOTE | 2021-01-23 14:02 | NUR ---
REHAB PRESCREEN RECEIVED. AFTER LOOKING AT THERAPY NOTES, PATIENT IS TOO HIGH FUNCTIONING TO QUALIFY FOR INPATIENT REHAB. THANK YOU FOR THE REFERRAL. I HAVE LEFT A VOICE MAIL FOR KERA MURRAY RN CM. JILL PHAM RN CLINICAL LIAISON, INPATIENT REHAB.
--- NOTE | 2021-01-23 14:26 | NUR ---
AT BEDSIDE MOST OF DAY. PATIENT IS WITHOUT DISTRESS.
--- NOTE | 2021-01-23 16:04 | NUR ---
I have reviewed this patient and I concur with the Shift Assessment completed by the Licensed Practical Nurse today this shift.
[2021-01-23 17:29] VITALS: BP 117/55
[2021-01-23 21:12] VITALS: BP 126/54
[2021-01-24 01:14] VITALS: BP 94/40
[2021-01-24 05:06] LABS: BASOPHILS 0.2 % (0-2); EOSINOPHILS 2.7 % (0-7); HEMATOCRIT 31.4 % (42.0-54.0); IMMATURE GRANULOCYTES 0.4 % (0-5); LYMPHOCYTE ABS# 1.17 10x3/uL (1.32-3.57); LYMPHOCYTES 14.5 % (15-50); MCH 29.9 pg (26.0-34.0); MCHC 31.8 g/dL (31.0-37.0); MCV 93.7 fL (80.0-100.0); MEAN PLATELET VOLUME 11.1 fL (7.4-10.4); MONOCYTES 6.9 % (2-11); NEUTROPHIL ABS# 6.09 10x3/uL (1.78-5.38); NEUTROPHILS 75.3 % (40-80); PLATELET COUNT 148 10x3/uL (130-400); RBC 3.35 10x6/uL (4.20-6.10); RDW 15.1 % (11.5-14.5); WBC 8.1 10x3/uL (4.8-10.8)
[2021-01-24 05:38] LABS: ALBUMIN 1.9 g/dL (3.4-5.0); ALKALINE PHOSPHATASE 141 U/L (30-120); BILIRUBIN - TOTAL 0.36 mg/dL (0.2-1.3); CALCIUM 8.2 mg/dL (8.5-10.1); CARBON DIOXIDE 26.2 mmol/L (21.0-32.0); CHLORIDE - SERUM 108 mmol/L (98-107); CREATININE - SERUM 0.9 mg/dL (0.6-1.3); PHOSPHOROUS 2.3 mg/dL (2.5-4.9); POTASSIUM - SERUM 3.3 mmol/L (3.5-5.1); PROTEIN - SERUM 5.4 g/dL (6.4-8.2); SODIUM 141 mmol/L (136-145); UREA NITROGEN 15 mg/dL (7-18); eGFR NON AFRICAN AMERICAN 85 mL/min (90-120)
[2021-01-24 05:46] LABS: ALT (SGPT) 24 U/L (10-68); CALC OSMOLALITY 282 mosm/kg (275-300); GLUCOSE 110 mg/dL (74-106)
[2021-01-24 05:56] VITALS: BP 124/60
[2021-01-24 09:55] VITALS: BP 124/62
[2021-01-24 12:56] VITALS: BP 114/48
--- NOTE | 2021-01-24 17:28 | MORECARE ---
CASE MANAGEMENT DISCHARGE SUMMARY PATIENT: LENY SOLIS UNIT: [id number] ADM DATE: 01/20/21 AGE: 85 : 35 SEX: M ROOM/BED: D.2233 AUTHOR: YELITZA,DOC PHYSICIAN: REFERRING PHYSICIAN: ALVIN PIÑA MD DATE OF SERVICE: 01/24/21 Case Management Discharge Planning Summary COMMENTS ENTERED DATE: 01/24/21 17:24 CT COMMENT TYPE: Discharge Planning REVIEWER: Charlie Oneil Patient and spouse, Jada Solis, requested a meeting with KEVIN. Mrs. Solis is grateful for the care that her is receiving at [facility] however, she is concerned that communication between herself and treating staff has become misaligned and therefore she would like to clarify the following: (1) [facility] COORDINATION. The patient is a [place] [facility] home care patient and receives services in his home from a team of Healthcare professionals (INTERIOR WIRER, RN, Package Maker, Social Work, and Psych). Any care directives for care post discharge need to be coordinated through the [place] before contact with inpatient rehab, HH, or SNF takes place. a. [facility] Admitting Coordinator is Shelley Todd ([phone]). Mrs. Solis would like for [facility] healthcare professionals to contact Shelley for proper chain of management regarding post DC care. b. [facility] treating INTERIOR WIRER is Teena Arteaga. Mrs. Solis would like for the [facility] INTERIOR WIRER to be notified of current plans of care. Teena Arteaga will not be back in the office until Tuesday (01/26/21). (2) PROGRESSING ABDOMINAL AORTIC ANEURYSM. Mrs. Solis stated that during this hospitalization, a CT was performed and the patient's AAA was visualized. Mrs. Solis stated that the aneurysm has progressed and she would like for it to be evaluated before DC or Inpatient rehab is considered. Mrs. Solis stated that the patient is scheduled to be evaluated by cardiology on the 18 of February but would like the aneurysm evaluated while the patient is in hospital. Per Mrs. Solis, the aneurysm has progressed "?from 4.48 cm to 5.8 cm in short period of time". (3) FECAL IMPACTION. The patient was readmitted for fecal impaction. Mrs. Solis would like communication between herself and staff regarding care for this condition (walking, stool training, etc). Mrs. Solis would like this condition resolved before considering DC. (4) HOME MEDICAL EQUIPMENT. Mrs. Solis stated the patient has a hospital bed, wheelchair, Rollator, and Oxygen (through [facility]). (5) CONCERNS: a. Taking care of the patient who is often hypotensive b. DC without the right equipment for care (although it is unclear what the equipment could be) c. Travel to [place]. Mrs. Solis stated that travel to [place] for care and rehab is unacceptable due to logistics and finances d. SNF. Mrs. Solis is opposed to intermediate care e. Nutrition. Mrs. Solis stated that the patient appears to be losing more weight. Mrs. Solis stated that the patient was 140# several months ago and now he is #112 Mrs. Solis stated that they were only home for 7 days before being readmitted but stated that she was able to follow up via telehealth with the patient's active directory administrator. Mrs. Solis stated that they were able to fill his medications and he is taking his medications as prescribed. Mrs. Solis voiced no other needs at this time and is satisfied with DC plan. CM will continue to follow and will assist as needed with dc plans/needs. DCP REVIEW SUMMARY ANTICIPATED D/C DATE: EXPECTED LOS : CASE STATUS: DCP Initiated INITIAL REVIEW: 01/20/2021 INITIAL REVIEWER: Charlie Oneil FINAL DISCHARGE DISPOSITION: : FINAL REVIEWER: FINAL REVIEW DATE: DCP Focus Questions & Answers DCP Evaluation QUESTION: ANSWER Patient gives permission to discuss discharge plans with: (name, relationship and number) : spouse, Jada Solis, Patient's ability to cope with chronic illness : d. No chronic illness Patient's current cognitive status: : *Oriented to person, place, situation, time and present Family / Caregiver's ability to cope with chronic illness: : a. Adequate (ability to meet patient's medical needs, ensures patient attends medical appts.) Patient and/or caregiver agree upon recommended discharge plan? : Yes Physical Status: : Compromised nutritional status Physical Status: : Compromised skin integrity Physical Status: : Hearing impaired Family / Caregiver's ability to cope with chronic illness: : a. Adequate (ability to meet patient's medical needs, ensures patient attends medical appts.) Functional screen assessment: : Noticeable poor ADL management Functional screen assessment: : Unable to manage ADLs without immediate ongoing assistance Does the patient have the ability to pay for or attain post discharge needs / services? : Yes Partial Dependence, assistance required for: : Ambulation / Mobility Partial Dependence, assistance required for: : Bathing Partial Dependence, assistance required for: : Dressing Partial Dependence, assistance required for: : Eating Living Arrangements: : Home with Spouse/Significant Other Is there a likelihood that the patient will require additional services to return to the preadmission environment? : Yes Equipment needed for post hospitalization: : None Baseline cognitive status: : *Oriented to person, place, situation, time and present Patient with capacity for self-care or can be cared for in same environment as prior to hospitalization? : Yes Physical environment modification needed / anticipated for discharge: : No Medication Management: : Patient states can afford medications Medication Management: : Patient states can read and understand medication labels Pharmacy name(s): : [facility] Does Patient have transportation to get home and to follow-up medical appointments when discharged from the hospital? : Yes Would patient like to participate in any Care Coordination programs (if applicable): : Not applicable Does the patient have electricity at home? : Yes Does the patient have running water in their house? : Yes Equipment in use: : Hospital Bed Equipment in use: : Walker - Rollator Equipment in use: : Wheelchair Other Equipment comments: : Oxygen and supplies through [facility] Mental health screen: : No mental health history DCP Re-evaluation QUESTION: ANSWER Would patient like to participate in any Care Coordination programs (if applicable): : Not applicable PATIENT: LENY SOLIS ENCOUNTER: [id number] MEDICAL RECORD#: [id number] ADMISSION DATE: 01/20/2021 DISCHARGE DATE: ATTENDING MD: ALVIN LIN : AGE: 85 MARITAL STATUS: M DC PLAN ID: [id number] FACILITY: [facility] PRINTED ON: 01/24/21 17:27 CT All edits/amendments must be made on the electronic document DICTATION DATE: 01/24/211726 FOUNDER AND CEO: JYOTHI 01/24/211726 RPT#: [id number] DC DATE: STATUS: ADM IN [facility] [address] [facility] [place] [address] END OF REPORT
[2021-01-24 18:16] VITALS: BP 120/55
[2021-01-24 20:52] VITALS: BP 128/54
[2021-01-25 05:25] VITALS: BP 130/59
[2021-01-25 06:38] LABS: BASOPHILS 0.4 % (0-2); EOSINOPHILS 3.4 % (0-7); HEMATOCRIT 30.5 % (42.0-54.0); HEMOGLOBIN 9.7 g/dL (13.5-17.5); IMMATURE GRANULOCYTES 0.5 % (0-5); LYMPHOCYTE ABS# 1.52 10x3/uL (1.32-3.57); LYMPHOCYTES 19.2 % (15-50); MCH 29.7 pg (26.0-34.0); MCHC 31.8 g/dL (31.0-37.0); MCV 93.3 fL (80.0-100.0); MEAN PLATELET VOLUME 10.9 fL (7.4-10.4); MONOCYTES 8.5 % (2-11); NEUTROPHIL ABS# 5.39 10x3/uL (1.78-5.38); PLATELET COUNT 142 10x3/uL (130-400); RBC 3.27 10x6/uL (4.20-6.10); RDW 15.2 % (11.5-14.5); WBC 7.9 10x3/uL (4.8-10.8)
[2021-01-25 07:19] LABS: ALBUMIN 1.8 g/dL (3.4-5.0); ALKALINE PHOSPHATASE 113 U/L (30-120); ALT (SGPT) 22 U/L (10-68); BILIRUBIN - TOTAL 0.25 mg/dL (0.2-1.3); CALC OSMOLALITY 277 mosm/kg (275-300); CALCIUM 8.1 mg/dL (8.5-10.1); CARBON DIOXIDE 26.2 mmol/L (21.0-32.0); CHLORIDE - SERUM 107 mmol/L (98-107); CREATININE - SERUM 0.8 mg/dL (0.6-1.3); GLUCOSE 92 mg/dL (74-106); POTASSIUM - SERUM 3.3 mmol/L (3.5-5.1); PROTEIN - SERUM 5.2 g/dL (6.4-8.2); SODIUM 140 mmol/L (136-145); eGFR NON AFRICAN AMERICAN > 90 mL/min (90-120)
[2021-01-25 07:21] LABS: UREA NITROGEN 11 mg/dL (7-18)
--- NOTE | 2021-01-25 07:26 | NUR ---
PATIENT K+ IS 3.3. REPLETE PER PROTOCOL THIS MORNING. PATIENT IS AWAKE AND ALERT, CONTINUE WITH PLAN OF CARE
--- NOTE | 2021-01-25 10:46 | NUR ---
9583 NO PERFOROMIST IN [facility] CALLED
[2021-01-25 11:28] VITALS: BP 116/47
[2021-01-25 16:00] VITALS: BP 133/69
--- NOTE | 2021-01-25 17:19 | NUR ---
I have reviewed this patient and I concur with the Shift Assessment completed by the Licensed Practical Nurse today this shift.
[2021-01-25 18:48] VITALS: BP 110/52
--- NOTE | 2021-01-25 19:30 | NUR ---
RECEIVED REPORT, ASSUMED CARE, CALL LIGHT IN REACH, BREATHING SHALLOW, DENIES NEEDS, SCD'S ON, RESPIRATORY ADMINISTERING BREATHING TX, ENCOURAGED PT TO NOTIFY STAFF OF ANY NEEDS
[2021-01-26 09:33] VITALS: BP 115/62
[2021-01-26 09:47] LABS: HEMATOCRIT 30.4 % (42.0-54.0); HEMOGLOBIN 9.8 g/dL (13.5-17.5); LYMPHOCYTE ABS# 1.66 10x3/uL (1.32-3.57); MCHC 32.2 g/dL (31.0-37.0); MEAN PLATELET VOLUME 10.7 fL (7.4-10.4); NEUTROPHIL ABS# 4.81 10x3/uL (1.78-5.38); PLATELET COUNT 154 10x3/uL (130-400); RBC 3.27 10x6/uL (4.20-6.10); RDW 15.4 % (11.5-14.5); WBC 7.5 10x3/uL (4.8-10.8)
[2021-01-26 09:51] LABS: ALBUMIN 1.8 g/dL (3.4-5.0); ALKALINE PHOSPHATASE 94 U/L (30-120); BILIRUBIN - TOTAL 0.26 mg/dL (0.2-1.3); CALC OSMOLALITY 279 mosm/kg (275-300); CALCIUM 8.2 mg/dL (8.5-10.1); CARBON DIOXIDE 27.5 mmol/L (21.0-32.0); CHLORIDE - SERUM 110 mmol/L (98-107); CREATININE - SERUM 0.8 mg/dL (0.6-1.3); GLUCOSE 104 mg/dL (74-106); POTASSIUM - SERUM 3.9 mmol/L (3.5-5.1); PROTEIN - SERUM 5.2 g/dL (6.4-8.2); SODIUM 141 mmol/L (136-145); UREA NITROGEN 10 mg/dL (7-18); eGFR NON AFRICAN AMERICAN > 90 mL/min (90-120)
[2021-01-26 09:52] LABS: ALT (SGPT) 16 U/L (10-68)
[2021-01-26 10:12] LABS: ANISOCYTOSIS OCC; BASOPHILS 2 % (0-2); EOSINOPHILS 2 % (0-7); LYMPHOCYTES 28 % (15-50); NEUTROPHILS 66 % (40-80); PLATELET ESTIMATE NORMAL
--- NOTE | 2021-01-26 11:29 | NUR ---
RELOOKED AT PATIENT FOR POSSIBLE INPATIENT REHAB. PATIENT APPEARS TO BE HAVING A LITTLE MORE DIFFICULTY WITH AMBULATION. WHEN READING CASEMANAGEMENT DISCHARGE NOTE, IT LOOKS IF THE HAS A VERY SPECIFIC LIST OF HOW SHE WANTS POST ACUTE CARE TO BE ADDRESSED, AND THEREFORE I PLACED A CALL TO TARIQ MOSELEY RN CM ON THE FLOOR TO MAKE SURE WHERE WE WERE IN THOSE STEPS. PATIENTS CHART WILL HAVE TO BE SENT TO THE [place] FOR AUTHORIZATION, AND I DO NOT WANT TO SUBMIT IF IT IS NOT OK. SHE WILL GET BACK WITH ME WHEN SHE KNOWS THE ANSWER TO THIS QUESTION. WE WILL CONTINUE TO FOLLOW. JILL PHAM RN CLINICAL LIAISON, INPATIENT REHAB.
--- NOTE | 2021-01-26 12:55 | NUR ---
OT NOTE: PT COMPLETED SUPINE TO SIT WITH CGA. PT COMPLETED ADL MOB WITH RW REQUIRED CGA. PT COMPLETED RYLEE/DOFF SOCKS WITH MIN-MOD A. PT COMPLETED RYLEE BRIEFS WITH MIN-MOD A. PT EXHIBITED MILD DIFFICULTY WITH SITTING BALANCE WITH LB DRESSING TASKS. PT IS COOPERATIVE AND MOTIVATED FOR INCREASED INDEPENDENCE WITH FUNCTIONAL TASKS. [id number] REGINA MORRIS COTA
--- NOTE | 2021-01-26 12:57 | MORECARE ---
CASE MANAGEMENT DISCHARGE SUMMARY PATIENT: LENY TORRES UNIT: [id number] ADM DATE: 01/20/21 AGE: 85 : 35 SEX: M ROOM/BED: D.2233 AUTHOR: YELITZA,DOC PHYSICIAN: REFERRING PHYSICIAN: ALVIN PIÑA MD DATE OF SERVICE: 01/26/21 Case Management Discharge Planning Summary COMMENTS ENTERED DATE: 01/26/21 12:53 CT COMMENT TYPE: Discharge Planning REVIEWER: Zina Perez I spoke with patient's at length about discharge plan. The patient is agreeable to go to inpatient rehab here at [facility] is the [facility] gives auth. I have contacted Nhung Prakash to let her know to start the process to start Auth. IMM served and explained. HONG also signed. CM to follow and assist as needed ENTERED DATE: 01/24/21 17:24 CT COMMENT TYPE: Discharge Planning REVIEWER: Charlie Oneil Patient and spouse, Jada Torres, requested a meeting with CM. Mrs. Torres is grateful for the care that her is receiving at [facility] however, she is concerned that communication between herself and treating staff has become misaligned and therefore she would like to clarify the following: (1) [facility] COORDINATION. The patient is a [place] [facility] patient and receives services in his home from a team of Healthcare professionals (MANUFACTURE SPECIALIST, RN, Bundle Clerk, Social Work, and Psych). Any care directives for care post discharge need to be coordinated through the [place] before contact with inpatient rehab, HH, or SNF takes place. a. [facility] Postal Sorting Officer is Shelley Todd ([phone]). Mrs. Torres would like for [facility] healthcare professionals to contact Shelley for proper chain of management regarding post DC care. b. [facility] treating MANUFACTURE SPECIALIST is Teena Arteaga. Mrs. Torres would like for the [place] MANUFACTURE SPECIALIST to be notified of current plans of care. Teena Arteaga will not be back in the office until Tuesday (01/26/21). (2) PROGRESSING ABDOMINAL AORTIC ANEURYSM. Mrs. Torres stated that during this hospitalization, a CT was performed and the patient's AAA was visualized. Mrs. Torres stated that the aneurysm has progressed and she would like for it to be evaluated before DC or Inpatient rehab is considered. Mrs. Torres stated that the patient is scheduled to be evaluated by cardiology on the 18 of February but would like the aneurysm evaluated while the patient is in hospital. Per Mrs. Torres, the aneurysm has progressed "?from 4.48 cm to 5.8 cm in short period of time". (3) FECAL IMPACTION. The patient was readmitted for fecal impaction. Mrs. Torres would like communication between herself and staff regarding care for this condition (walking, stool training, etc). Mrs. Torres would like this condition resolved before considering DC. (4) HOME MEDICAL EQUIPMENT. Mrs. Torres stated the patient has a hospital bed, wheelchair, Rollator, and Oxygen (through [facility]). (5) CONCERNS: a. Taking care of the patient who is often hypotensive b. DC without the right equipment for care (although it is unclear what the equipment could be) c. Travel to [place]. Mrs. Torres stated that travel to [place] for care and rehab is unacceptable due to logistics and finances d. SNF. Mrs. Torres is opposed to longterm care e. Nutrition. Mrs. Torres stated that the patient appears to be losing more weight. Mrs. Torres stated that the patient was 140# several months ago and now he is #112 Mrs. Torres stated that they were only home for 7 days before being readmitted but stated that she was able to follow up via telehealth with the patient's extruding department supervisor. Mrs. Torres stated that they were able to fill his medications and he is taking his medications as prescribed. Mrs. Torres voiced no other needs at this time and is satisfied with DC plan. CM will continue to follow and will assist as needed with dc plans/needs. DCP REVIEW SUMMARY ANTICIPATED D/C DATE: EXPECTED LOS : CASE STATUS: DCP Initiated INITIAL REVIEW: 01/20/2021 INITIAL REVIEWER: Charlie Oneil FINAL DISCHARGE DISPOSITION: : FINAL REVIEWER: FINAL REVIEW DATE: DCP Focus Questions & Answers DCP Evaluation QUESTION: ANSWER Patient and/or caregiver agree upon recommended discharge plan? : Yes Patient's current cognitive status: : *Oriented to person, place, situation, time and present Patient's ability to cope with chronic illness : d. No chronic illness Patient gives permission to discuss discharge plans with: (name, relationship and number) : spouse, Jada Torres, Family / Caregiver's ability to cope with chronic illness: : a. Adequate (ability to meet patient's medical needs, ensures patient attends medical appts.) Does the patient have the ability to pay for or attain post discharge needs / services? : Yes Functional screen assessment: : Noticeable poor ADL management Functional screen assessment: : Unable to manage ADLs without immediate ongoing assistance Family / Caregiver's ability to cope with chronic illness: : a. Adequate (ability to meet patient's medical needs, ensures patient attends medical appts.) Physical Status: : Compromised nutritional status Physical Status: : Compromised skin integrity Physical Status: : Hearing impaired Equipment needed for post hospitalization: : None Is there a likelihood that the patient will require additional services to return to the preadmission environment? : Yes Living Arrangements: : Home with Spouse/Significant Other Partial Dependence, assistance required for: : Ambulation / Mobility Partial Dependence, assistance required for: : Bathing Partial Dependence, assistance required for: : Dressing Partial Dependence, assistance required for: : Eating Patient with capacity for self-care or can be cared for in same environment as prior to hospitalization? : Yes Baseline cognitive status: : *Oriented to person, place, situation, time and present Physical environment modification needed / anticipated for discharge: : No Medication Management: : Patient states can afford medications Medication Management: : Patient states can read and understand medication labels Pharmacy name(s): : [facility] Does Patient have transportation to get home and to follow-up medical appointments when discharged from the hospital? : Yes Would patient like to participate in any Care Coordination programs (if applicable): : Not applicable Does the patient have electricity at home? : Yes Does the patient have running water in their house? : Yes Equipment in use: : Hospital Bed Equipment in use: : Walker - Rollator Equipment in use: : Wheelchair Other Equipment comments: : Oxygen and supplies through [facility] Mental health screen: : No mental health history DCP Re-evaluation QUESTION: ANSWER Would patient like to participate in any Care Coordination programs (if applicable): : Not applicable PATIENT: LENY TORRES ENCOUNTER: [id number] MEDICAL RECORD#: [id number] ADMISSION DATE: 01/20/2021 DISCHARGE DATE: ATTENDING MD: ALVIN LIN : AGE: 85 MARITAL STATUS: M DC PLAN ID: [id number] FACILITY: [facility] PRINTED ON: 01/26/21 12:57 CT All edits/amendments must be made on the electronic document DICTATION DATE: 01/26/21 1257 MANUFACTURING ANALYST: DM 01/26/21 1257 RPT#: [id number] DC DATE: STATUS: ADM IN [facility] [address] [place] [address] END OF REPORT
[2021-01-26 13:56] VITALS: BP 105/58
--- NOTE | 2021-01-26 14:42 | NUR ---
RECORDS BEING SENT TO [facility] AT THE [facility] FOR AUTHORIZATION TO INPATIENT REAHB. PER NATALIE, INITIAL SCREENER, THEY WERE NOT EVEN SHOWING THAT THE PATIENT WAS IN THE HOSPITAL. THEIR RECORDS SHOW THAT ON 01/20 HE WAS DISCHARGED HOME FROM THE ER. SHE REQUESTED THE NAME OF THE CASEMANAGER ON THE FLOOR, AND I EPXLAINED THAT TODAY SHE HAD TARIQ COVERING THER REGULAR DELINQUENT ACCOUNT CLERK WAS OUT TODAY. SHE HAS REQUESTED A NUMBER TO TALK WITH HER. COVID SWAB REQUESTED TO RULE OUT POSSIBLE COVID SECONDARY TO RESPIRATORY SYMPTOMS PRIOR TO ACCEPTANCE IF [place] APPROVES. WE WILL CONTINUE TO FOLLOW. JILL PHAM RN CLINICAL LIAISON, INPATIENT REHAB.
[2021-01-26 17:05] VITALS: BP 129/58
[2021-01-26 20:00] VITALS: BP 114/62
[2021-01-27 04:00] VITALS: BP 103/51
[2021-01-27 08:02] VITALS: BP 100/51
[2021-01-27 09:09] LABS: BASOPHILS 0.7 % (0-2); EOSINOPHILS 7.9 % (0-7); HEMATOCRIT 29.7 % (42.0-54.0); HEMOGLOBIN 9.4 g/dL (13.5-17.5); IMMATURE GRANULOCYTES 0.7 % (0-5); LYMPHOCYTE ABS# 1.87 10x3/uL (1.32-3.57); LYMPHOCYTES 31.4 % (15-50); MCH 29.7 pg (26.0-34.0); MCHC 31.6 g/dL (31.0-37.0); MEAN PLATELET VOLUME 11.3 fL (7.4-10.4); MONOCYTES 11.2 % (2-11); NEUTROPHIL ABS# 2.87 10x3/uL (1.78-5.38); NEUTROPHILS 48.1 % (40-80); PLATELET COUNT 165 10x3/uL (130-400); RBC 3.16 10x6/uL (4.20-6.10); RDW 15.7 % (11.5-14.5)
[2021-01-27 10:31] LABS: ALBUMIN 1.9 g/dL (3.4-5.0); ALKALINE PHOSPHATASE 95 U/L (30-120); ALT (SGPT) 16 U/L (10-68); BILIRUBIN - TOTAL 0.32 mg/dL (0.2-1.3); CALCIUM 8.4 mg/dL (8.5-10.1); CARBON DIOXIDE 30.1 mmol/L (21.0-32.0); CHLORIDE - SERUM 107 mmol/L (98-107); GLUCOSE 91 mg/dL (74-106); PROTEIN - SERUM 5.4 g/dL (6.4-8.2); SODIUM 142 mmol/L (136-145); eGFR NON AFRICAN AMERICAN 75 mL/min (90-120)
[2021-01-27 10:35] LABS: CALC OSMOLALITY 283 mosm/kg (275-300); UREA NITROGEN 16 mg/dL (7-18)
--- NOTE | 2021-01-27 11:23 | NUR ---
PATIENT SITTING UP IN BED, EXPLAINED THAT DCTORS HAVE ORDERED ANOTHER SUPPOSITORY WELL MAG CITRATE, PATIENT STATED HE AHD A SMALL BM EARLIER. EXPLAINED HE STILL HAS A GOOD AMOUNT WHEN XRAY WAS TAKEN THIS MORNING AND WE WANTED TO MAKE SURE WE CLEAN HIM OUT BEFORE DC. PATIENT CONCERNED HE WOULD NOT BE LEAVING TODAY. NO OTHER NEEDS AT THIS TIME. CONTINUE WITH PLAN OF CARE
--- NOTE | 2021-01-27 13:09 | NUR ---
Nutrition Re-Assessment: Diet: Regular PO intake: none recorded in nursing flow sheet. Poor PO intake per patient/family report. Last BM: 01/27/21 Wt: 115.4# (01/20/21), no new weight Meds noted: linzess, miralax, senokot, probiotics, dulcolax Labs noted: alb 1.9(L) Estimated nutrition needs: [id number] russell (25-35 Act), 43-53gms protein (0.8-1), 1300-1600mL fluid (or per MD) Nutrition diagnosis: -Underweight r/t inadequate energy intake AEB BMI 17.5 and previous nutritional diagnosis of severe malnutrition. -Inadequate energy intake r/t decreased appetite, constipation AEB poor PO intake DHS. Nutrition Goals: -PO intake will increase to >65% meals -Meet fluid needs -Appropriate weight gain of ~1-2#/week until BMI nearer WNL Recommendations/interventions: -Recommend continue Regular diet. Will continue to honor food preferences. -Encourage PO intake at meals times. -Continue bowel regimen/laxatives. Hopefully PO intake will increase with bowel regularity. -RD will follow-up 01/30/21.
[2021-01-27 13:19] VITALS: BP 105/44
[2021-01-27 17:07] VITALS: BP 91/48
[2021-01-27 20:00] VITALS: BP 112/51
--- NOTE | 2021-01-27 20:00 | NUR ---
PT LYING IN BED SLEEPING WITHOUT DISTRESS, CL IN REACH. BED ALARM ON
[2021-01-28 04:00] VITALS: BP 122/57
[2021-01-28 05:34] LABS: BASOPHILS 0.5 % (0-2); EOSINOPHILS 5.2 % (0-7); HEMATOCRIT 31.9 % (42.0-54.0); IMMATURE GRANULOCYTES 0.2 % (0-5); LYMPHOCYTE ABS# 1.57 10x3/uL (1.32-3.57); LYMPHOCYTES 28.1 % (15-50); MCH 29.8 pg (26.0-34.0); MCHC 31.3 g/dL (31.0-37.0); MCV 94.9 fL (80.0-100.0); MEAN PLATELET VOLUME 10.4 fL (7.4-10.4); MONOCYTES 13.6 % (2-11); NEUTROPHIL ABS# 2.92 10x3/uL (1.78-5.38); NEUTROPHILS 52.4 % (40-80); RBC 3.36 10x6/uL (4.20-6.10); RDW 15.6 % (11.5-14.5); WBC 5.6 10x3/uL (4.8-10.8)
[2021-01-28 05:47] LABS: PLATELET COUNT 227 10x3/uL (130-400)
[2021-01-28 06:00] LABS: ALKALINE PHOSPHATASE 109 U/L (30-120); ALT (SGPT) 20 U/L (10-68); BILIRUBIN - TOTAL 0.31 mg/dL (0.2-1.3); CALC OSMOLALITY 281 mosm/kg (275-300); CARBON DIOXIDE 28.3 mmol/L (21.0-32.0); CHLORIDE - SERUM 108 mmol/L (98-107); CREATININE - SERUM 0.8 mg/dL (0.6-1.3); GLUCOSE 92 mg/dL (74-106); POTASSIUM - SERUM 4.4 mmol/L (3.5-5.1); PROTEIN - SERUM 5.1 g/dL (6.4-8.2); SODIUM 141 mmol/L (136-145); UREA NITROGEN 14 mg/dL (7-18); eGFR NON AFRICAN AMERICAN > 90 mL/min (90-120)
[2021-01-28 08:28] VITALS: BP 111/52
[2021-01-28 12:54] VITALS: BP 98/50
[2021-01-28] MEDS ORDERED: MIRALAX17 GM PO (14:14)
[2021-01-28] MEDS ORDERED: LINZESS145 MCG PO (14:14)
--- NOTE | 2021-01-28 14:41 | NUR ---
I HAVE SPOKEN WITH CADE CORNELL RN CM AND [facility] LAWS APN AT THE [facility] TODAY. ADDITIONAL INFORMATION WAS REQUESTED AND FAXED. I AM STILL WAITING ON THEIR DETERMINATION. JILL PHAM RN CLINICAL LIAISON, INPATIENT REHAB.
[2021-01-28 16:23] VITALS: BP 101/57
--- NOTE | 2021-01-28 16:51 | NUR ---
OT NOTE: PT COMPLETED BED MOB WITH SBA. PT COMPLETED SITTING AT EOB WITH SPV. PT DONNED SHOES AT EOB WITH SBA. PT COMPLETED FACE AND HAND HYGIENE WITH SETUP. PT COMPLETED ADL MOB WITH SBA-CGA. [id number] REGINA MORRIS COTA
--- NOTE | 2021-01-28 17:39 | NUR ---
DISCHARGE PAPERS COMPLETE. NO FURTHER QUESTIONS. IV CATH REMOVED, CATH TIP INTACT. BELONGINGS GATHERED. LEFT UNTI VIA WHEELCHAIR TO HOME AT THIS TIME.
--- NOTE | 2021-01-28 18:08 | MORECARE ---
CASE MANAGEMENT DISCHARGE SUMMARY PATIENT: LENY TORRES UNIT: [id number] ADM DATE: 01/20/21 AGE: 85 : 35 SEX: M ROOM/BED: D.2233 AUTHOR: GINI TORRE PHYSICIAN: REFERRING PHYSICIAN: ALVIN PIÑA MD DATE OF SERVICE: 01/28/21 Case Management Discharge Planning Summary COMMENTS ENTERED DATE: 01/28/21 17:54 CT COMMENT TYPE: Discharge Planning REVIEWER: Zina Perez PATIENT DISCHARGE HOME AT BEDSIDE ENTERED DATE: 01/26/21 12:53 CT COMMENT TYPE: Discharge Planning REVIEWER: Zina Perez I spoke with patient's at length about discharge plan. The patient is agreeable to go to inpatient rehab here at [facility] is the [facility]. I have contacted Nhung Prakash to let her know to start the process to start Auth. IMM served and explained. HONG also signed. CM to follow and assist as needed ENTERED DATE: 01/24/21 17:24 CT COMMENT TYPE: Discharge Planning REVIEWER: Charlie Oneil Patient and spouse, Jada Torres, requested a meeting with CM. Mrs. Torres is grateful for the care that her is receiving at [facility] however, she is concerned that communication between herself and treating staff has become misaligned and therefore she would like to clarify the following: (1) [facility] COORDINATION. The patient is a [place] Community home care patient and receives services in his home from a team of Healthcare professionals (ENGRAVER PANTOGRAPH, RN, Process Validation Engineer, Social Work, and Psych). Any care directives for care post discharge need to be coordinated through the [place] before contact with inpatient rehab, HH, or SNF takes place. [facility] Barrel Tester And Drainer is Shelley Todd ([phone]). Mrs. Torres would like for [facility] healthcare professionals to contact Shelley for proper chain of management regarding post DC care. b. [facility] treating ENGRAVER PANTOGRAPH is Teena Arteaga. Mrs. Torers would like for the [place] ENGRAVER PANTOGRAPH to be notified of current plans of care. Teena Arteaga will not be back in the office until Tuesday (01/26/21). (2) PROGRESSING ABDOMINAL AORTIC ANEURYSM. Mrs. Torres stated that during this hospitalization, a CT was performed and the patient's AAA was visualized. Mrs. Torres stated that the aneurysm has progressed and she would like for it to be evaluated before DC or Inpatient rehab is considered. Mrs. Torres stated that the patient is scheduled to be evaluated by cardiology on the 18 of February but would like the aneurysm evaluated while the patient is in hospital. Per Mrs. Torres, the aneurysm has progressed "?from 4.48 cm to 5.8 cm in short period of time". (3) FECAL IMPACTION. The patient was readmitted for fecal impaction. Mrs. Torres would like communication between herself and staff regarding care for this condition (walking, stool training, etc). Mrs. Torres would like this condition resolved before considering DC. (4) HOME MEDICAL EQUIPMENT. Mrs. Torres stated the patient has a hospital bed, wheelchair, Rollator, and Oxygen (through [facility]). (5) CONCERNS: a. Taking care of the patient who is often hypotensive b. DC without the right equipment for care (although it is unclear what the equipment could be) c. Travel to [place]. Mrs. Torres stated that travel to [place] for care and rehab is unacceptable due to logistics and finances d. SNF. Mrs. Torres is opposed to [facility] care e. Nutrition. Mrs. Torres stated that the patient appears to be losing more weight. Mrs. Torres stated that the patient was 140# several months ago and now he is #112 Mrs. Torres stated that they were only home for 7 days before being readmitted but stated that she was able to follow up via telehealth with the patient's training personnel supervisor. Mrs. Torres stated that they were able to fill his medications and he is taking his medications as prescribed. Mrs. Torres voiced no other needs at this time and is satisfied with DC plan. CM will continue to follow and will assist as needed with dc plans/needs. DCP REVIEW SUMMARY ANTICIPATED D/C DATE: EXPECTED LOS : CASE STATUS: DCP Initiated INITIAL REVIEW: 01/20/2021 INITIAL REVIEWER: Charlie Oneil FINAL DISCHARGE DISPOSITION: : FINAL REVIEWER: FINAL REVIEW DATE: DCP Focus Questions & Answers DCP Evaluation QUESTION: ANSWER Patient and/or caregiver agree upon recommended discharge plan? : Yes Patient's current cognitive status: : *Oriented to person, place, situation, time and present Patient's ability to cope with chronic illness : d. No chronic illness Patient gives permission to discuss discharge plans with: (name, relationship and number) : spouse, Jada Torres, Family / Caregiver's ability to cope with chronic illness: : a. Adequate (ability to meet patient's medical needs, ensures patient attends medical appts.) Does the patient have the ability to pay for or attain post discharge needs / services? : Yes Functional screen assessment: : Noticeable poor ADL management Functional screen assessment: : Unable to manage ADLs without immediate ongoing assistance Family / Caregiver's ability to cope with chronic illness: : a. Adequate (ability to meet patient's medical needs, ensures patient attends medical appts.) Physical Status: : Compromised nutritional status Physical Status: : Compromised skin integrity Physical Status: : Hearing impaired Equipment needed for post hospitalization: : None Is there a likelihood that the patient will require additional services to return to the preadmission environment? : Yes Living Arrangements: : Home with Spouse/Significant Other Partial Dependence, assistance required for: : Ambulation / Mobility Partial Dependence, assistance required for: : Bathing Partial Dependence, assistance required for: : Dressing Partial Dependence, assistance required for: : Eating Patient with capacity for self-care or can be cared for in same environment as prior to hospitalization? : Yes Baseline cognitive status: : *Oriented to person, place, situation, time and present Physical environment modification needed / anticipated for discharge: : No Medication Management: : Patient states can afford medications Medication Management: : Patient states can read and understand medication labels Pharmacy name(s): : [facility] Does Patient have transportation to get home and to follow-up medical appointments when discharged from the hospital? : Yes Would patient like to participate in any Care Coordination programs (if applicable): : Not applicable Does the patient have electricity at home? : Yes Does the patient have running water in their house? : Yes Equipment in use: : Hospital Bed Equipment in use: : Walker - Rollator Equipment in use: : Wheelchair Other Equipment comments: : Oxygen and supplies through [facility] Mental health screen: : No mental health history DCP Re-evaluation QUESTION: ANSWER Would patient like to participate in any Care Coordination programs (if applicable): : Not applicable PATIENT: LENY TORRES ENCOUNTER: [id number] MEDICAL RECORD#: [id number] ADMISSION DATE: 01/20/2021 DISCHARGE DATE: 01/28/2021 ATTENDING MD: ALVIN LIN : 1935- AGE: 85 MARITAL STATUS: M DC PLAN ID: [id number] FACILITY: [facility] PRINTED ON: 01/28/21 18:08 CT All edits/amendments must be made on the electronic document DICTATION DATE: 01/28/211807 SINGER AND UNLOADER: JYOTHI 01/28/211807 RPT#: [id number] DC DATE:01/28/21 STATUS: DIS IN [facility] [address] [place] [address] END OF REPORT
--- NOTE | 2021-02-02 14:51 | MORECARE ---
CASE MANAGEMENT DISCHARGE SUMMARY PATIENT: LENY TORRES UNIT: [id number] ADM DATE: 01/20/21 AGE: 85 : 35 SEX: M ROOM/BED: D.2233 AUTHOR: GINI TORRE PHYSICIAN: REFERRING PHYSICIAN: ALVIN PIÑA MD DATE OF SERVICE: 02/02/21 Case Management Discharge Planning Summary COMMENTS ENTERED DATE: 01/28/21 17:54 CT COMMENT TYPE: Discharge Planning REVIEWER: Zina Perez PATIENT DISCHARGE HOME AT BEDSIDE ENTERED DATE: 01/26/21 12:53 CT COMMENT TYPE: Discharge Planning REVIEWER: Zina Perez I spoke with patient's at length about discharge plan. The patient is agreeable to go to inpatient rehab here at [facility]. I have contacted Nhung Prakash to let her know to start the process to start Auth. IMM served and explained. HONG also signed. CM to follow and assist as needed ENTERED DATE: 01/24/21 17:24 CT COMMENT TYPE: Discharge Planning REVIEWER: Charlie Oneil Patient and spouse, Jada Torres, requested a meeting with CM. Mrs. Torres is grateful for the care that her is receiving at [facility] however, she is concerned that communication between herself and treating staff has become misaligned and therefore she would like to clarify the following: (1) [facility] COORDINATION. The patient is a [place] [facility] home care patient and receives services in his home from a team of Healthcare professionals (LAST WAXER, RN, Corporate Fitness Program Coordinator, Social Work, and Psych). Any care directives for care post discharge need to be coordinated through the [place] before contact with inpatient rehab, HH, or SNF takes [facility] Firebrick Layer is Shelley Todd ([phone]). Mrs. Torres would like for [facility] healthcare professionals to contact Shelley for proper chain of management regarding post DC care. b. [facility] treating LAST WAXER is Teena Arteaga. Mrs. Torres would like for the [place] LAST WAXER to be notified of current plans of care. Teena Arteaga will not be back in the office until Tuesday (01/26/21). (2) PROGRESSING ABDOMINAL AORTIC ANEURYSM. Mrs. Torres stated that during this hospitalization, a CT was performed and the patient's AAA was visualized. Mrs. Torres stated that the aneurysm has progressed and she would like for it to be evaluated before DC or Inpatient rehab is considered. Mrs. Torres stated that the patient is scheduled to be evaluated by cardiology on the 18 of February but would like the aneurysm evaluated while the patient is in hospital. Per Mrs. Torres, the aneurysm has progressed "?from 4.48 cm to 5.8 cm in short period of time". (3) FECAL IMPACTION. The patient was readmitted for fecal impaction. Mrs. Torres would like communication between herself and staff regarding care for this condition (walking, stool training, etc). Mrs. Torres would like this condition resolved before considering DC. (4) HOME MEDICAL EQUIPMENT. Mrs. Torres stated the patient has a hospital bed, wheelchair, Rollator, and Oxygen (through [facility]). (5) CONCERNS: a. Taking care of the patient who is often hypotensive b. DC without the right equipment for care (although it is unclear what the equipment could be) c. Travel to [place]. Mrs. Torres stated that travel to [place] for care and rehab is unacceptable due to logistics and finances d. SNF. Mrs. Torres is opposed to [facility] care e. Nutrition. Mrs. Torres stated that the patient appears to be losing more weight. Mrs. Torres stated that the patient was 140# several months ago and now he is #112 Mrs. Torres stated that they were only home for 7 days before being readmitted but stated that she was able to follow up via telehealth with the patient's cabin agent. Mrs. Torres stated that they were able to fill his medications and he is taking his medications as prescribed. Mrs. Torres voiced no other needs at this time and is satisfied with DC plan. CM will continue to follow and will assist as needed with dc plans/needs. DCP REVIEW SUMMARY ANTICIPATED D/C DATE: EXPECTED LOS : 0 CASE STATUS: DCP Complete INITIAL REVIEW: 01/20/2021 INITIAL REVIEWER: Charlie Oneil FINAL DISCHARGE DISPOSITION: 01 : Home or Self Care (Routine Discharge) FINAL REVIEWER: Zina Perez FINAL REVIEW DATE: 02/02/2021 DCP Focus Questions & Answers DCP Evaluation QUESTION: ANSWER Patient and/or caregiver agree upon recommended discharge plan? : Yes Family / Caregiver's ability to cope with chronic illness: : a. Adequate (ability to meet patient's medical needs, ensures patient attends medical appts.) Patient's current cognitive status: : *Oriented to person, place, situation, time and present Patient's ability to cope with chronic illness : d. No chronic illness Patient gives permission to discuss discharge plans with: (name, relationship and number) : spouse, Jada Torres, Does the patient have the ability to pay for or attain post discharge needs / services? : Yes Functional screen assessment: : Unable to manage ADLs without immediate ongoing assistance Functional screen assessment: : Noticeable poor ADL management Family / Caregiver's ability to cope with chronic illness: : a. Adequate (ability to meet patient's medical needs, ensures patient attends medical appts.) Physical Status: : Hearing impaired Physical Status: : Compromised skin integrity Physical Status: : Compromised nutritional status Equipment needed for post hospitalization: : None Is there a likelihood that the patient will require additional services to return to the preadmission environment? : Yes Living Arrangements: : Home with Spouse/Significant Other Partial Dependence, assistance required for: : Eating Partial Dependence, assistance required for: : Dressing Partial Dependence, assistance required for: : Bathing Partial Dependence, assistance required for: : Ambulation / Mobility Patient with capacity for self-care or can be cared for in same environment as prior to hospitalization? : Yes Baseline cognitive status: : *Oriented to person, place, situation, time and present Physical environment modification needed / anticipated for discharge: : No Medication Management: : Patient states can read and understand medication labels Medication Management: : Patient states can afford medications Pharmacy name(s): : [facility] [facility] Does Patient have transportation to get home and to follow-up medical appointments when discharged from the hospital? : Yes Would patient like to participate in any Care Coordination programs (if applicable): : Not applicable Does the patient have electricity at home? : Yes Does the patient have running water in their house? : Yes Equipment in use: : Wheelchair Equipment in use: : Walker - Rollator Equipment in use: : Hospital Bed Other Equipment comments: : Oxygen and supplies through [facility] Mental health screen: : No mental health history DCP Re-evaluation QUESTION: ANSWER Would patient like to participate in any Care Coordination programs (if applicable): : Not applicable PATIENT: LENY TORRES ENCOUNTER: [id number] MEDICAL RECORD#: [id number] ADMISSION DATE: 01/20/2021 DISCHARGE DATE: 01/28/2021 ATTENDING MD: ALVIN LIN : [id number] AGE: 85 MARITAL STATUS: M DC PLAN ID: [id number] FACILITY: [facility] PRINTED ON: 02/02/21 14:51 CT All edits/amendments must be made on the electronic document DICTATION DATE: 02/02/211450 PROSPECT MANAGER: JYOTHI 02/02/211450 RPT#: [id number] DC DATE:01/28/21 STATUS: DIS IN [facility] [address] [place] [address] END OF REPORT
== END 2021-01-28 17:40 | disposition home health service (06) | DRG 388 ==
LOC: D.ER 22:26 → D.MS 01-20 01:35 → OBSVTIME 01-20 01:36 → D.MS 01-20 14:56
PROVIDERS: Family Medicine; ADMIT Emergency Medicine; ATTEND Emergency Medicine
DX: K56.41 Fecal impaction (principal); J18.9 Pneumonia, unspecified organism; J96.21 Acute and chronic respiratory failure with hypoxia; I50.22 Chronic systolic (congestive) heart failure; M87.9 Osteonecrosis, unspecified; I42.9 Cardiomyopathy, unspecified; N17.9 Acute kidney failure, unspecified; E44.0 Moderate protein-calorie malnutrition; Z68.1 Body mass index [BMI] 19.9 or less, adult; D64.9 Anemia, unspecified; E78.5 Hyperlipidemia, unspecified; I25.10 Atherosclerotic heart disease of native coronary artery without angina pectoris; M19.90 Unspecified osteoarthritis, unspecified site; I11.0 Hypertensive heart disease with heart failure; I71.9 Aortic aneurysm of unspecified site, without rupture; J44.9 Chronic obstructive pulmonary disease, unspecified; I48.91 Unspecified atrial fibrillation; I73.9 Peripheral vascular disease, unspecified; Z20.822 Contact with and (suspected) exposure to COVID-19; R53.81 Other malaise; E86.0 Dehydration

== ENCOUNTER → 2021-02-19 14:10 | Outpatient (CLI) | payer OTHER ==
[2021-01-21 10:12] VITALS: BMI 17.5
[~2021-02-19 14:10] MED LIST changes: +LINZESS145 MCG PO; +MIRALAX17 GM PO
== END | disposition home or self-care (01) ==
LOC: D.LAB 14:10
PROVIDERS: ATTEND Internal Medicine Pulmonary Disease
DX: Z11.52 Encounter for screening for COVID-19 (principal)

== ENCOUNTER → 2021-02-23 06:57 | Outpatient (CLI) | payer OTHER ==
[2021-01-21 10:12] VITALS: BMI 17.5
== END | disposition home or self-care (01) ==
LOC: D.RAD 02-16 10:00 → D.RT 06:57
PROVIDERS: ATTEND Internal Medicine Pulmonary Disease
DX: J18.9 Pneumonia, unspecified organism (principal)

== ENCOUNTER → 2021-02-26 12:00 | Outpatient (CLI) | payer OTHER ==
[2021-01-21 10:12] VITALS: BMI 17.5
[2021-02-26 15:21] LABS: BILIRUBIN NEGATIVE (NEGATIVE); KETONE NEGATIVE (NEGATIVE); NITRITE NEGATIVE (NEGATIVE); UROBILINOGEN NORMAL mg/dL (< 2)
[2021-02-26 16:06] LABS: BASOPHILS 0.7 % (0-2); HEMATOCRIT 35.8 % (42.0-54.0); HEMOGLOBIN 11.3 g/dL (13.5-17.5); LYMPHOCYTES 34.9 % (15-50); MCH 29.6 pg (26.0-34.0); MCHC 31.6 g/dL (31.0-37.0); MCV 93.7 fL (80.0-100.0); MEAN PLATELET VOLUME 8.4 fL (7.4-10.4); NEUTROPHILS 53.4 % (40-80); PLATELET COUNT 264 10x3/uL (130-400); RBC 3.82 10x6/uL (4.20-6.10); RDW 17.5 % (11.5-14.5); WBC 7.7 10x3/uL (4.8-10.8)
[2021-02-26 16:13] LABS: APTT 34.1 SECONDS (22.8-39.4); INR 1.08 (0.85-1.17)
[2021-02-26 16:17] LABS: ALBUMIN 3.1 g/dL (3.4-5.0); ALKALINE PHOSPHATASE 124 U/L (30-120); ALT (SGPT) 13 U/L (10-68); BILIRUBIN - TOTAL 0.45 mg/dL (0.2-1.3); CALC OSMOLALITY 281 mosm/kg (275-300); CARBON DIOXIDE 28.9 mmol/L (21.0-32.0); CHLORIDE - SERUM 106 mmol/L (98-107); CREATININE - SERUM 0.9 mg/dL (0.6-1.3); GLUCOSE 88 mg/dL (74-106); POTASSIUM - SERUM 3.7 mmol/L (3.5-5.1); PROTEIN - SERUM 7.2 g/dL (6.4-8.2); SODIUM 142 mmol/L (136-145); UREA NITROGEN 12 mg/dL (7-18); eGFR NON AFRICAN AMERICAN 85 mL/min (90-120)
== END | disposition home or self-care (01) ==
LOC: D.PAN 12:00 → D.SDCHOLD 03-03 07:30 → EDSTATUS 03-03 07:30 → D.SDCHOLD 03-03 11:25
PROVIDERS: ATTEND Thoracic Surgery (Cardiothoracic Vascular Surgery)
DX: I71.2 Thoracic aortic aneurysm, without rupture (principal)

== ENCOUNTER → 2021-02-27 15:26 | Outpatient (CLI) | payer OTHER ==
[2021-01-21 10:12] VITALS: BMI 17.5
== END | disposition home or self-care (01) ==
LOC: D.CT 15:26
PROVIDERS: ATTEND Thoracic Surgery (Cardiothoracic Vascular Surgery)
DX: J18.9 Pneumonia, unspecified organism (principal)